=== PATIENT | female | born 1945 | race Caucasian/White ===

== ENCOUNTER 2016-11-21 15:09 | Emergency (ER) | payer MEDICARE, OTHER ==
[2015-08-14 09:16] VITALS: BMI 26.5
[~2016-11-21 15:09] MED LIST: ABILIFY10 MG PO; ARTHROTEC EC 71 EACH PO; CYCLOBENZAPRINE10 MG PO; GABAPENTIN100 MG PO; KEFLEX500 MG PO; MOBIC7.5 MG PO; PERCOCET 10/3251 TA1 PO; RESTORIL15 MG PO; ROPINIROLE HCL2 MG PO; TRICOR145 MG PO; VALIUM10 MG PO; VIMOVO 500-201 EACH PO; XANAX0.25 MG PO
[2016-11-21 20:28] LABS: BASOPHILS 0.5 % (0.0-2.0); EOSINOPHILS 0.7 % (0-7); HEMATOCRIT 42.4 % (36.0-48.0); HEMOGLOBIN 14.1 g/dL (12-16); IMMATURE GRANULOCYTES 0.4 % (0-5); LYMPHOCYTES 19.1 % (15-50); MCH 31.7 pg (26.0-34.0); MCHC 33.3 g/dL (31.0-37.0); MCV 95.3 fL (80.0-100.0); MEAN PLATELET VOLUME 10.1 fL (7.4-10.4); MONOCYTES 9.1 % (2-11); NEUTROPHILS 70.2 % (40-80); PLATELET COUNT 236 10x3/uL (130-400); RBC 4.45 10x6/uL (4.00-5.40); RDW 18.9 % (11.5-14.5); WBC 7.5 10x3/uL (4.8-10.8)
[2016-11-21 20:33] LABS: APTT 29.3 SECONDS (22.8-39.4); INR 0.93 (0.85-1.17); PROTIME 12.3 SECONDS (11.6-15.0)
[2016-11-21 20:43] LABS: ANION GAP 17.2 mmol/L (8-16); BILIRUBIN - TOTAL 0.63 mg/dL (0.2-1.3); CALCIUM 9.3 mg/dL (8.5-10.1); CARBON DIOXIDE 27.4 mmol/L (21.0-32.0); CREATININE - SERUM 0.9 mg/dL (0.6-1.3); PROTEIN - SERUM 7.4 g/dL (6.4-8.2)
[2016-11-21 20:48] LABS: POTASSIUM - SERUM 2.6 mmol/L (3.5-5.1)
== END 2016-11-21 23:22 | disposition home or self-care (01) ==
LOC: D.ER 15:09
PROVIDERS: Physician Assistant Medical
DX: R51 Headache (principal); E86.0 Dehydration; I10 Essential (primary) hypertension

== ENCOUNTER 2017-02-04 18:41 | Inpatient (IN) | payer MEDICARE, OTHER ==
[~2017-02-04] VITALS: Ht 160 cm; Wt 66.8 kg
[2017-02-04 19:47] LABS: BASOPHILS 0.9 % (0-2); EOSINOPHILS 1.4 % (0-7); HEMATOCRIT 38.6 % (36.0-48.0); IMMATURE GRANULOCYTES 0.6 % (0-5); LYMPHOCYTES 24.4 % (15-50); MCH 33.6 pg (26.0-34.0); MCHC 31.1 g/dL (31.0-37.0); MCV 108.1 fL (80.0-100.0); MEAN PLATELET VOLUME 9.7 fL (7.4-10.4); MONOCYTES 13.5 % (2-11); NEUTROPHILS 59.2 % (40-80); PLATELET COUNT 235 10x3/uL (130-400); RBC 3.57 10x6/uL (4.00-5.40); RDW 19.8 % (11.5-14.5); WBC 6.6 10x3/uL (4.8-10.8)
[2017-02-04 20:03] LABS: ALBUMIN 2.6 g/dL (3.4-5.0); ANION GAP 15.9 mmol/L (8-16); BILIRUBIN - TOTAL 0.81 mg/dL (0.2-1.3); CALCIUM 8.1 mg/dL (8.5-10.1); CARBON DIOXIDE 24.7 mmol/L (21.0-32.0); CREATININE - SERUM 1.3 mg/dL (0.6-1.3); POTASSIUM - SERUM 3.6 mmol/L (3.5-5.1); PROTEIN - SERUM 6.7 g/dL (6.4-8.2)
[2017-02-04 20:14] LABS: UDS - AMPHET NEGATIVE QUAL (NEGATIVE); UDS - BARB NEGATIVE QUAL (NEGATIVE); UDS - BENZO NEGATIVE QUAL (NEGATIVE); UDS - COCAINE NEGATIVE QUAL (NEGATIVE); UDS - METH NEGATIVE QUAL (NEGATIVE); UDS - OPIATE NEGATIVE QUAL (NEGATIVE); UDS - PCP NEGATIVE QUAL (NEGATIVE); UDS - THC NEGATIVE QUAL (NEGATIVE)
[2017-02-04 20:15] LABS: APPEARANCE HAZY (CLEAR); COLOR YELLOW (YELLOW)
[2017-02-04 20:16] LABS: BILIRUBIN NEGATIVE (NEGATIVE); GLUCOSE NEGATIVE (NEGATIVE); KETONE NEGATIVE (NEGATIVE); LEUKOCYTE ESTERASE 1+ (NEGATIVE); NITRITE POSITIVE (NEGATIVE); PROTEIN 1+ mg/dL (NEGATIVE); SPECIFIC GRAVITY 1.015 (1.005-1.020); UROBILINOGEN NORMAL (NORMAL)
[2017-02-04 20:17] LABS: BACTERIA MANY /hpf (NONE SEEN); EPITHELIAL CELLS 0-5 /hpf (0-5); RED CELLS - URINE 0-5 /hpf (0-5)
[2017-02-04 20:38] LABS: MAGNESIUM - SERUM 1.4 mg/dL (1.8-2.4)
[2017-02-04 23:23] VITALS: BMI 30.3
[2017-02-04] MEDS ORDERED: NORVASC10 MG PO (23:53)
[2017-02-04] MEDS ORDERED: HYDROCODON-ACE1 EAC7 PO (23:56)
[2017-02-04] MEDS ORDERED: GABAPENTIN100 MG PO (23:57)
[2017-02-04] MEDS ORDERED: TRAZODONE HCL50 MG PO (23:58)
[2017-02-04] MEDS ORDERED: ZOLOFT50 MG PO (23:59)
[2017-02-04] MEDS ORDERED: REQUIP0.25 MG PO (23:59)
[2017-02-05] MEDS ORDERED: VITAMIN D5000 UNIT PO
[2017-02-05] MEDS ORDERED: ARTHROTEC EC 71 EACH PO (00:01)
[2017-02-05] MEDS ORDERED: K-DUR20 MEQ PO (00:03)
[2017-02-05] MEDS ORDERED: ACETAMINOPHEN500 M1 PO (00:04)
[2017-02-05] MEDS ORDERED: FUROSEMIDE20 MG PO (00:04)
[2017-02-05 04:00] VITALS: BP 80/44
--- NOTE | 2017-02-05 05:36 | NUR ---
ASSESSED AT THE TIME OF ADMIT. PT IS ALERT AND ORIENTED, ABLE TO VERBALIZE NEEDS. SHE CAME IN FOR CONFUSION AND WAS FOUND TO HAVE AN ELEVATED AMMONIA. AT SHE IS ABLE TO GET UP TO THE BATHROOM BUT IS VERY WNSTEADY SO WE ARE ASSISTING HER WHEN SHE GOES. SHE TURNS HERSELF FOR SKIN CARE AND COMFORT. A WARM PACK WAS PLACE ON HER BACK FOR BACK PAIN UNTIL HER MD COMES AND OK'S PAIN MEDS. MOST OF THE NIGHT SHE HAS SLEPT. THE BED IS LOW, RAILS UP X'S 2 WITH THE CALL LIGHT AT HAND.
--- NOTE | 2017-02-05 08:03 | NUR ---
SCHEDULED MEDICATIONS ADMINISTERED AT THIS TIME WITHOUT DIFFICULTY. ASSESSMENT PERFORMED AND PT PLACED ON VANDANA BED MAT FOR FALL PRECAUTIONS. PAIN 7/10 AT THIS TIME AND GENERALIZED. DR SNEED AT BEDSIDE ASSESSING PT. SRX2 WITH BED IN LOWEST POSITION AND WHEELS LOCKED. CALL LIGHT IN REACH, WILL CONTINUE WITH PLAN OF CARE.
[2017-02-05] MEDS ORDERED: BUTRANS1 EAC1 TRANSDERM (08:05)
[2017-02-05 09:06] VITALS: BP 123/73
--- NOTE | 2017-02-05 09:33 | NUR ---
HOME MEDICATIONS ORDERED PER DR SNEED. ADMINISTERED BY KVNG AREVALOBILLING REPRESENTATIVE AT THIS TIME WITHOUT DIFFICULTY.
--- NOTE | 2017-02-05 09:48 | NUR ---
IV MEDICATIONS INITIATED AT THIS TIME PER ORDERS. IV TO LEFT AC RE-DRESSED AND SECURED WITH TAPE. IV PATENT WITH NO S/S OF INFILTRATION PRESENT. CALL LIGHT IN REACH, WILL CONTINUE WITH PLAN OF CARE.
--- NOTE | 2017-02-05 10:42 | NUR ---
SCHEDULED MEDICATION ADMINISTERED AT THIS TIME. SPOKE WITH PT'S DAUGHTER AND ASKED HER TO BRING PT'S PAIN PATCH FROM HOME, SO THAT IT COULD BE CHANGED PER ORDER FROM DR SNEED. OUT PHARMACY DOES NOT CARRY THIS STRENGHT. PT'S DAUGHTER VERBALIZED UNDERSTANDING AND I LET PT KNOW WELL. PT VERBALIZED UNDERSTANDING. CALL LIGHT REMAINS IN REACH, WILL CONTINUE WITH PLAN OF CARE.
--- NOTE | 2017-02-05 11:45 | NUR ---
PULLED UP RIGHT IN BED AND POSITIONED AT 90 DEGREE ANGLE FOR ADEQUETE PO INTAKE OF SCHEDULED MEDICATION AND LUNCH. CALL LIGHT IN REACH, VANDANA MAT ALARM IN USE. WILL CONTINUE WITH PLAN OF CARE.
[2017-02-05 11:48] VITALS: BP 83/54
--- NOTE | 2017-02-05 13:35 | NUR ---
SLEEPING AT THIS TIME WITH RESPIRATIONS EVEN AND NON LABORED. CALL LIGHT IN REACH, WILL CONTINUE WITH PLAN OF CARE.
[2017-02-05 14:35] LABS: BASOPHILS 1.2 % (0-2); EOSINOPHILS 1.5 % (0-7); HEMATOCRIT 37.8 % (36.0-48.0); HEMOGLOBIN 11.7 g/dL (12-16); IMMATURE GRANULOCYTES 0.9 % (0-5); LYMPHOCYTES 25.3 % (15-50); MCH 33.8 pg (26.0-34.0); MCV 109.2 fL (80.0-100.0); MEAN PLATELET VOLUME 9.8 fL (7.4-10.4); MONOCYTES 13.4 % (2-11); NEUTROPHILS 57.7 % (40-80); PLATELET COUNT 227 10x3/uL (130-400); RBC 3.46 10x6/uL (4.00-5.40); RDW 19.9 % (11.5-14.5); WBC 6.8 10x3/uL (4.8-10.8)
[2017-02-05 15:28] LABS: ALBUMIN 2.5 g/dL (3.4-5.0); ANION GAP 12.4 mmol/L (8-16); BILIRUBIN - TOTAL 0.69 mg/dL (0.2-1.3); CALCIUM 8.1 mg/dL (8.5-10.1); CREATININE - SERUM 1.1 mg/dL (0.6-1.3); POTASSIUM - SERUM 3.4 mmol/L (3.5-5.1); PROTEIN - SERUM 6.1 g/dL (6.4-8.2)
[2017-02-05 16:14] VITALS: BP 95/44
[2017-02-05 20:00] VITALS: BP 131/77
--- NOTE | 2017-02-05 21:20 | NUR ---
RESTING QUIETLY WITH EYES CLOSED, AROUSES UPON COMMAND. ASSESSMENT PER FLOW SHEET. BED LOW CL IN REACH.
--- NOTE | 2017-02-05 23:10 | NUR ---
ASSISTED TO BR STANDBY ASSIST TIMES 1. VOISED 300 CC CLEAR YELLOW URINE.
[2017-02-06] VITALS: BP 138/70
--- NOTE | 2017-02-06 00:54 | NUR ---
RESTING QUIETLY WITH EYES CLOSED RESP DEEP EVEN UNLABORED. BED LOW CL IN REACH. ALL FALL PRECAUTIONS IN PLACE PER FALL SCORE.
[2017-02-06 04:00] VITALS: BP 128/66
[2017-02-06 04:43] LABS: BASOPHILS 0.7 % (0-2); EOSINOPHILS 1.9 % (0-7); MCH 33.3 pg (26.0-34.0); MCHC 30.6 g/dL (31.0-37.0); MCV 109.1 fL (80.0-100.0); MEAN PLATELET VOLUME 9.2 fL (7.4-10.4); MONOCYTES 14.5 % (2-11); NEUTROPHILS 56.9 % (40-80); PLATELET COUNT 223 10x3/uL (130-400); RDW 19.7 % (11.5-14.5); WBC 6.9 10x3/uL (4.8-10.8)
[2017-02-06 05:06] LABS: ALBUMIN 2.3 g/dL (3.4-5.0); ANION GAP 12.8 mmol/L (8-16); BILIRUBIN - TOTAL 0.84 mg/dL (0.2-1.3); CALCIUM 7.6 mg/dL (8.5-10.1); CARBON DIOXIDE 27.2 mmol/L (21.0-32.0); CREATININE - SERUM 0.9 mg/dL (0.6-1.3)
--- NOTE | 2017-02-06 07:20 | NUR ---
REPORT RECEIVED FROM DIRECTOR NETWORK DEVELOPMENT NURSE. CALL LIGHT IN REACH.
[2017-02-06 08:08] VITALS: BP 128/76
--- NOTE | 2017-02-06 08:20 | NUR ---
PATIENT IN HIGH [place]AMP[place] POSITION ALERT AND RESTING QUIETLY. RESPIRATIONS EVEN AND UNLABORED. SIDE RAILS UP X2. BED IN LOW POSITION. CALL LIGHT IN REACH.
--- NOTE | 2017-02-06 08:22 | NUR ---
ASSESSMENT COMPLETED. O2 WAS 82% ON 2L PER NC. INCREASED TO 6L. NOW O2 IS 91%. WILL ASK RESPIRATORY FOR AN OXYMIZER. SCDs TO BLE. VANDANA MAT ALARM IS ON. CALL LIGHT IN REACH. WILL CONTINUE WITH PLAN OF CARE.
--- NOTE | 2017-02-06 08:28 | NUR ---
SPOKE WITH DR. SNEED. NEW ORDERS RECEIVED.
--- NOTE | 2017-02-06 08:30 | NUR ---
OXYMIZER PLACED @ 7L PER RT. O2 SAT IS NOW 94%. WILL CONTINUE TO MONITOR.
--- NOTE | 2017-02-06 08:38 | NUR ---
AM MEDS ADMINISTERED. CALL LIGHT IN REACH.
--- NOTE | 2017-02-06 10:20 | NUR ---
RESTING WITH EYES CLOSED. RESP EVEN AND UNLABORED. CALL LIGHT IN REACH.
[2017-02-06 12:11] VITALS: BP 152/67
[2017-02-06 12:23] VITALS: Ht 160 cm; Wt 66.8 kg
--- NOTE | 2017-02-06 12:50 | NUR ---
NOON MEDS ADMINISTERED. STILL REQUESTING MORE PAIN MEDS. WILL CALL
--- NOTE | 2017-02-06 12:50 | NUR ---
REPOSITIONED IN BED WITH ASSISTANCE FROM CARISA TORRES. CALL LIGHT IN REACH.
--- NOTE | 2017-02-06 14:58 | NUR ---
GABAPENTIN AND NORCO PO. PAIN PATCH CHANGED. DAUGHTER AND FRIEND IN ROOM. CALL LIGHT IN REACH.
--- NOTE | 2017-02-06 15:05 | NUR ---
GABAPENTIN AND NORCO PO. PAIN PATCH CHANGED. DAUGHTER AND FRIEND IN ROOM. CALL LIGHT IN REACH.
--- NOTE | 2017-02-06 15:31 | NUR ---
RT IN ROOM TO DO BREATHING TREATMENT.
[2017-02-06 15:40] VITALS: BP 136/76
--- NOTE | 2017-02-06 16:41 | NUR ---
STATES PAIN IS BETTER BUT IS STILL SAYING IT IS A 5. SEEMS COMFORTABLE AT THIS TIME. FAMILY IN ROOM. CALL LIGHT IN REACH.
--- NOTE | 2017-02-06 16:50 | NUR ---
LIBRIUM PO PER ORDER. FAMILY IN ROOM. CALL LIGHT IN REACH.
--- NOTE | 2017-02-06 18:33 | NUR ---
NO CHANGES IN INITIAL ASSESSMENT. SCDs TO BLE. VANDANA MAT ALARM IS ON. WILL CONTINUE WITH PLAN OF CARE.
--- NOTE | 2017-02-06 19:08 | NUR ---
TO CT VIA BED.
[2017-02-06 20:00] VITALS: BP 110/82
--- NOTE | 2017-02-06 20:00 | NUR ---
ASSESSMENT PER FLOWSHEET. PT TO RADIOLOGY PER BED FOR CTA OF CHEST. RETURNED AFTER XRAY. IV PATENT LEFT AC OF NS AT 100CC'S/HR O2 ON 6L/M PER HIGH FLOW OXIMYZER. PLACED ON CONTINUOUS O2 SAT. READS 89-90%.HOB UP 40 DEGREES. SR UP X2 CALL LIGHT WITHIN REACH VANDANA BED ALARM MAT ON ALARMS SET. DAUGHTER AT BEDSIDE. SCD'S ON. LARGE PURPLE BRUISE NOTED TO RT HIP AREA. PT'S DAUGHTER REQUESTING JOHNSON CATHETER STATES HER MOTHER IS TOO WEAK TO GET TO BATHROOM. NOTIFIED DR. SNEED OK'D FRO CATHETER.
--- NOTE | 2017-02-06 20:30 | NUR ---
JOHNSON CATHETER 16FR INSERTED WITH 200CC'S YELLOW URINE RETURNED. O2 SAT READS 87% O2 INCREASED TO 7L/M . IS USED WITH POOR EFFORT.
--- NOTE | 2017-02-06 20:55 | NUR ---
MEDS GIVEN PER MAR.
--- NOTE | 2017-02-06 22:30 | NUR ---
O2 SAT=87% INCREASED O2 TO 8L/M PER OXIMYZER. PT REPOSITIONED IN BED HOB UP 40 DEGREES.
[2017-02-07] VITALS (19 sets, daily range): BP systolic 92–141; BP diastolic 37–79
--- NOTE | 2017-02-07 | NUR ---
O2 SAT READING=89% INCREASED O2 TO 9L/M PER OXIMYZER.
--- NOTE | 2017-02-07 01:50 | NUR ---
O2 SAT=84% O2 INCREASED TO 10 PER OXIMYZER.
[2017-02-07 05:08] LABS: BASOPHILS 0.3 % (0-2); EOSINOPHILS 0.8 % (0-7); HEMATOCRIT 37.4 % (36.0-48.0); HEMOGLOBIN 11.3 g/dL (12-16); IMMATURE GRANULOCYTES 0.8 % (0-5); LYMPHOCYTES 15.7 % (15-50); MCH 33.9 pg (26.0-34.0); MCHC 30.2 g/dL (31.0-37.0); MEAN PLATELET VOLUME 10.1 fL (7.4-10.4); MONOCYTES 8.6 % (2-11); NEUTROPHILS 73.8 % (40-80); PLATELET COUNT 256 10x3/uL (130-400); RBC 3.33 10x6/uL (4.00-5.40); RDW 20.1 % (11.5-14.5); WBC 8.6 10x3/uL (4.8-10.8)
[2017-02-07 05:20] LABS: MCV 112.3 fL (80.0-100.0)
[2017-02-07 05:23] LABS: ALBUMIN 2.4 g/dL (3.4-5.0); ANION GAP 12.4 mmol/L (8-16); BILIRUBIN - TOTAL 1.3 mg/dL (0.2-1.3); CALCIUM 7.9 mg/dL (8.5-10.1); CREATININE - SERUM 0.9 mg/dL (0.6-1.3); MAGNESIUM - SERUM 2.1 mg/dL (1.8-2.4); POTASSIUM - SERUM 3.4 mmol/L (3.5-5.1); PROTEIN - SERUM 6.4 g/dL (6.4-8.2)
--- NOTE | 2017-02-07 06:15 | NUR ---
O2 SAT READING 81% UNABLE TO GET O2 SATS ANY HIGHER RT TECH HERE WILL DO ABG'S RAPID RESPONSE CALLED.
--- NOTE | 2017-02-07 06:40 | NUR ---
NGT #16 FR INSERTED TO LEFT NARE GREEN DRAINAGE RETURNED. LACTULOSE 45CC'S GIVEN PER NGT AND FLUSHED WITH WATER. NGT CLAMPED.PATIENT ON BIPAP. O2 SAT=95%
--- NOTE | 2017-02-07 06:51 | NUR ---
TRANSFERED TO ICU TO ROOM 2304. PER O2 AND RT TECH.
--- NOTE | 2017-02-07 07:04 | NUR ---
REC'D VIA BED FROM MED SURG, 100% NR MASK IN USE, O2 SAT 88%, OTHER VSS, CONFUSED WITH GARBLED SPEECH, CHANGED TO 100% BIPAP BY RT, PER ORDER, FOLLOWS SOME COMMANDS, ASSESSMENT COMPLETE PER FLOWSHEET
[2017-02-07 07:41] LABS: APTT 24.2 SECONDS (22.8-39.4)
--- NOTE | 2017-02-07 09:30 | NUR ---
AM MEDS GIVEN PER NGT, TOLERATED WITHOUT DIFFICULTY, ORAL CARE COMPLETED, REPOSITIONED UP AND TO RIGHT SIDE WITH PILLOW PROPPED TO BACK AND HEELS FLOATED
--- NOTE | 2017-02-07 11:00 | NUR ---
ASSESSMENT COMPLETED SEE FLOWSHEET, NO ACUTE CHANGE FROM PREVIOUS
--- NOTE | 2017-02-07 11:15 | NUR ---
INITITATED LACTULOSE ENEMA, INSTILLED 600 CC, WITHOUT DIFFICULTY, RECTAL VAULT WITH HARD MARBLE SIZED STOOL
--- NOTE | 2017-02-07 13:30 | NUR ---
AIR OVERLAY MATTRESS APPLIED TO BED WITHOUT DIFFICULTY
--- NOTE | 2017-02-07 14:00 | NUR ---
LACTULOSE ENEMA INSTILLED PER PROTOCAL AND ORDER
--- NOTE | 2017-02-07 15:00 | NUR ---
RESTING WITH NO SIGN OF DISTRESS, VSS, ORAL CARE COMPLETED, NO VISITORS AT THIS TIME
--- NOTE | 2017-02-07 17:30 | NUR ---
INCONTINENT OF SMALL DIARRHEA STOOL TO DAGOBERTO PAD, SKINCARE AND LINEN CHANGE COMPLETED
--- NOTE | 2017-02-07 19:30 | NUR ---
ASSESSMENT COMPLETE. S1S2. PT CONFUSED; SPEECH GARBLED. ON BIPAP @ 100%. RR SHALLOW DIMINISHED THROUGHOUT ALL LOBES. GUIDEMAN STRENGTH EQUAL +3. RADIAL AND PEDAL PULSES PALPATED. SINUS TACHYCARDIA SHOWING ON MONITOR. PT FREQUENTLY MAKES POSITION CHANGES; ATTEMPTS TO SLIDE TO THE END OF THE BED; PLACES LEG OFF SIDE OF THE BED. BED ALARM IN USE. X3 SIDE RAILS IN USE. SCD AND JOHNSON CATH IN PLACE. NO DISTRESS NOTED. VSS. WILL CONTINUE TO MONITOR.
--- NOTE | 2017-02-07 20:30 | NUR ---
20 GAUGE PIV STARTED TO RIGHT AC; PATENT. NO REDNESS. NO SIGNS OF INFILTRATION.
--- NOTE | 2017-02-07 22:30 | NUR ---
PT HAD BM; PT CLEANED. COMPLETE LINEN CHANGE.
--- NOTE | 2017-02-07 23:10 | NUR ---
REASSESSMENT COMPLETE. NO CHANGES FROM PREVIOUS ASSESSMENT. BIPAP AT 80%. PIV TO RIGHT AC; PATENT.
[2017-02-08] VITALS (21 sets, daily range): BP systolic 100–154; BP diastolic 50–100
--- NOTE | 2017-02-08 00:30 | NUR ---
CRONULAC AND SOAP [place] ENEMA GIVEN. DIGITAL ASSESSMENT OF ANAL CANAL INDICATED FECAL BLOCKAGE. ATTEMPTED TO DIGITALLY REM0VE FECAL MATTER; MINIMAL FECES REMOVED. WILL ATTEMPT AFTER RESTING PERIOD.
--- NOTE | 2017-02-08 02:50 | NUR ---
SOAP [place] ENEMA GIVEN. DIGITAL REMOVAL OF FECAL MATTER.
--- NOTE | 2017-02-08 03:20 | NUR ---
REASSESSMENT COMPLETE. NO CHANGES FROM PREVIOUS ASSESSMENT. VSS. NO DISTRESS NOTED. CALL LIGHT IN REACH. WILL CONTINUE TO MONITOR.
[2017-02-08 04:06] LABS: BASOPHILS 0.1 % (0-2); EOSINOPHILS 0 % (0-7); HEMATOCRIT 36.6 % (36.0-48.0); HEMOGLOBIN 11.1 g/dL (12-16); IMMATURE GRANULOCYTES 0.3 % (0-5); LYMPHOCYTES 7.4 % (15-50); MCH 33.5 pg (26.0-34.0); MCHC 30.3 g/dL (31.0-37.0); MCV 110.6 fL (80.0-100.0); MEAN PLATELET VOLUME 9.8 fL (7.4-10.4); MONOCYTES 5.7 % (2-11); NEUTROPHILS 86.5 % (40-80); PLATELET COUNT 242 10x3/uL (130-400); RBC 3.31 10x6/uL (4.00-5.40); RDW 20.2 % (11.5-14.5); WBC 9.8 10x3/uL (4.8-10.8)
--- NOTE | 2017-02-08 04:30 | NUR ---
PT HAD LARGE BM; SEMI FORMED SOME MARBLE LIKE STOOLS PRESENT. PT RESTLESS. MOVES AROUND IN BED CONTINUOUSLY.
[2017-02-08 04:34] LABS: ALBUMIN 2.2 g/dL (3.4-5.0); ANION GAP 12.7 mmol/L (8-16); BILIRUBIN - TOTAL 2.16 mg/dL (0.2-1.3); CALCIUM 7.3 mg/dL (8.5-10.1); CARBON DIOXIDE 25.7 mmol/L (21.0-32.0); CREATININE - SERUM 0.8 mg/dL (0.6-1.3); MAGNESIUM - SERUM 2.3 mg/dL (1.8-2.4); PROTEIN - SERUM 6.3 g/dL (6.4-8.2)
[2017-02-08 04:51] LABS: POTASSIUM - SERUM 2.4 mmol/L (3.5-5.1)
--- NOTE | 2017-02-08 05:20 | NUR ---
POTASSIUM 1 OF 6 STARTED PER ELECTROLYTE PROTOCOL.
--- NOTE | 2017-02-08 10:17 | NUR ---
Nutrition follow-up: Pt with oxygen mask in place; confused Labs reviewed ETOH abuse with elevated NH3 Unable to eat at this time. Received order to begin TF RDN ordered Suplena to start @ 25 ml/hr with gradual increase to goal rate of 50 ml/hr. RDN will monitor patients progress and TF tolerance.
--- NOTE | 2017-02-08 19:20 | NUR ---
ASSESSMENT COMPLETE. S1S2. SINUS TACHYCARDIA SHOWING ON MONITOR. RR SHALLOW CTA BLATERALLY IN UPPER LOBES; DIMINISHED BILATERALLY IN LOWER LOBES. AWAKE AND ALERT; ABLE TO ANSWER QUESTIONS APPROPRIATELY. SPEECH GARBLED. OPENS EYES TO SPEECH; EYES BILATERALLY EDEMATOUS AND REDDENED. SKIN TEAR/SORE ON RIGHT SIDED VULVA. BUTTOCKS REDDENED. FREQUENT MOISTURE DUE TO FREQUENT BM'S.
--- NOTE | 2017-02-08 19:40 | NUR ---
PT HAD LARGE BM; PARTIAL SEMI FORMED; PARTIAL LOOSE. PT CLEANED; LINEN CHANGED.
--- NOTE | 2017-02-08 20:20 | NUR ---
PT HAD LARGE BM; PT CLEANED. COMPLETE BED BATH. COMPLETE LINEN CHANGE. PT WAS ATTEMPTING TO GET OUT OF BED AFTER INCONTINENT. BED ALARM ON; WAS NOT ALARMING PT WAS ATTEMPTING TO GET OUT OF BED. CLOSE MONITORING.
--- NOTE | 2017-02-08 21:30 | NUR ---
PT HAD MEDIUM BM; COMPLETE LINEN CHANGE. PT CLEANED.
--- NOTE | 2017-02-08 21:45 | NUR ---
PT PLACED IN RESTRAINTS. PT PULLED OUT NGT; ATTEMPTING TO GET OUT OF BED; ATTEMPTED TO PULL IV OUT; AND WAS PULLING ON JOHNSON CATH. EXPLAINED TO PT REASON FOR RESTRAINTS. WILL CONTINUE TO MONITOR CLOSELY.
--- NOTE | 2017-02-08 23:15 | NUR ---
REASSESSMENT COMPLETE. NO CHANGES FROM PREVIOUS ASSESSMENT. VSS. NO DISTRESS NOTED. PT IN RESTRAINTS; PT SAFETY.
[2017-02-09] VITALS (24 sets, daily range): BP systolic 101–167; BP diastolic 59–118
--- NOTE | 2017-02-09 00:10 | NUR ---
LARGE BM. PT CLEANED. COMPLETE BATH GIVEN. COMPLETE LINEN CHANGE.
--- NOTE | 2017-02-09 00:35 | NUR ---
RT AC PIV INFLITRATED. REDNESS AND WARMTH NOTED. DC'D PIV; CATH INTACT. DRESSING APPLIED. RESTARTED PIV 20 GAUGE TO LEFT BREAST; PATENT. X1 ATTEMPT.
--- NOTE | 2017-02-09 03:00 | NUR ---
REASSESSMENT COMPLETE. NO CHANGES FROM PREVIOUS ASSESSMENT. VSS. NO DISTRESS NOTED. PIV TO LEFT CHEST/BREAST.
--- NOTE | 2017-02-09 04:18 | NUR ---
PT HAD MODERATE BM. COMPLETE LINEN CHANGE. PT CLEANED.
[2017-02-09 04:25] LABS: BASOPHILS 0.1 % (0-2); EOSINOPHILS 0 % (0-7); HEMATOCRIT 35.8 % (36.0-48.0); HEMOGLOBIN 11.1 g/dL (12-16); IMMATURE GRANULOCYTES 0.3 % (0-5); LYMPHOCYTES 5.6 % (15-50); MCV 109.8 fL (80.0-100.0); MEAN PLATELET VOLUME 10.5 fL (7.4-10.4); MONOCYTES 7.1 % (2-11); NEUTROPHILS 86.9 % (40-80); PLATELET COUNT 271 10x3/uL (130-400); RBC 3.26 10x6/uL (4.00-5.40); RDW 20.9 % (11.5-14.5); WBC 10.3 10x3/uL (4.8-10.8)
[2017-02-09 04:40] LABS: ALBUMIN 2.4 g/dL (3.4-5.0); ALKALINE PHOSPHATASE 202 U/L (46-116); ALT (SGPT) 144 U/L (10-68); BILIRUBIN - TOTAL 1.61 mg/dL (0.2-1.3); CALCIUM 7.4 mg/dL (8.5-10.1); CARBON DIOXIDE 26.3 mmol/L (21.0-32.0); CHLORIDE - SERUM 105 mmol/L (98-107); CREATININE - SERUM 0.7 mg/dL (0.6-1.3); GLUCOSE 164 mg/dL (74-106); MAGNESIUM - SERUM 2.3 mg/dL (1.8-2.4); PROTEIN - SERUM 6.1 g/dL (6.4-8.2); SODIUM 142 mmol/L (136-145); eGFR NON AFRICAN AMERICAN 87 mL/min (90-120)
[2017-02-09 04:56] LABS: CALC OSMOLALITY 284 mosm/kg (275-300); POTASSIUM - SERUM 2.9 mmol/L (3.5-5.1); UREA NITROGEN 6 mg/dL (7-18)
--- NOTE | 2017-02-09 06:28 | NUR ---
PT HAD SMALL BM. COMPLETE LINEN CHANGE. CLEAN GOWN. PT CLEANED.
--- NOTE | 2017-02-09 07:00 | NUR ---
PT DISORIENTED AND RESTLESS. ON BIPAP AT THIS TIME. PULLED OUT NGT PER CANAL EQUIPMENT MECHANIC AND PULLED OUT LEFT HAND PIV. PT REMAINS IN RESTRAINTS. PT CONSTANTLY MOVING SELF UP AND DOWN IN BED AND TWISTING AROUND. ATTEMPTED TO REORIENT PT. SHE IS ABLE TO ANSWER SOME QUESIONS BUT IS INCONSISTENT. JOHNSON NOW SECURED WITH STAT LOCK. PIV IN LEFT CHEST TAPED AND SECURED. WILL CONTINUE TO MONITOR PT CLOSELY.
--- NOTE | 2017-02-09 09:00 | NUR ---
FAMILY CALLED AND GIVEN UPDATE. PT CLEANED AND LINENS CHANGED. PT WAS ABLE TO TAKE PO MEDS WITH ASSISTANCE. WILL CONTINUE TO MONITOR AND REORIENT NEEDED.
[2017-02-09 10:19] LABS: HEPATITIS C ANTIBODY <0.1 (0.0-0.9)
--- NOTE | 2017-02-09 11:00 | NUR ---
PT HAD ANOTHER BM. CLEANED AND COMPLETE LINEN CHANGE. REPOSITIONED IN BED. WILL CONTINUE TO MONITOR
--- NOTE | 2017-02-09 14:00 | NUR ---
SWALLOW EVAL COMPLETED PER NAMAN. PT WILL NOW BE ON PUREED DIET WITH THICKENED LIQUIDS. WILL CONTINUE TO MONITOR
--- NOTE | 2017-02-09 15:00 | NUR ---
PT CLEANED AND REPOSITONED IN BED. ORDERS IN FOR REDRAW ON POTASSIUM AND AMMONIA. WILL CONTINUE TO MONITOR
--- NOTE | 2017-02-09 17:00 | NUR ---
SPOKE WITH DR STARKS ABOUT PT CRITICAL AMMONIA LEVEL IN 80S. SHE STATES THAT WE WILL CONTINUE 60ML LACTULOSE PO TID ORDERED AT THIS TIME. PT CLEANED AND REPOSITIONED IN BED. WILL CONINUE TO MONITOR
--- NOTE | 2017-02-09 19:20 | NUR ---
PT INCONTINENT OF STOOL. LARGE LIQUID BM. PT CLEANED. COMPLETE LINEN CHANGE.
--- NOTE | 2017-02-09 19:45 | NUR ---
ASSESSMENT COMPLETE. S1S2. SINUS TACHYCARDIA SHOWING ON MONITOR. PT CONFUSED, RESTLESS, AND CONSTANTLY MOVING AROUND IN BED. PT THRASHES LEGS AROUND CONTINUOUSLY. WEEPING EDEMA NOTED TO ARMS; REDDENED. RADIAL AND PEDAL PULSES PALPATED. ON BIPAP @ 50%. RR DIMINISHED THROUGHOUT ALL LOBES. GENERALIZED BRUISING NOTED. BRUSING NOTED TO RIGHT HIP; REDDENED. BUTTOCKS REDDENED.
--- NOTE | 2017-02-09 20:50 | NUR ---
PT INCONTINENT OF STOOL. MEDIUM LIQUID BM. PT CLEANED. COMPLETE LINEN CHANGE.
--- NOTE | 2017-02-09 22:10 | NUR ---
PT INCONTINENT OF STOOL. LARGE LIQUID BM. PT CLEANED. COMPLETE LINEN CHANGE.
--- NOTE | 2017-02-09 22:20 | NUR ---
RECTAL TUBE INSERTED WITHOUT DIFFICULTY. IRRIGATED TO CHECK PATENTENCY.
--- NOTE | 2017-02-09 23:10 | NUR ---
REASSESSMENT COMPLETE. NO CHANGES FROM PREVIOUS ASSESSMENT. VSS. NO DISTRESS NOTED. WILL CONTINUE TO MONITOR. MAKES FREQUENT CHANGES IN POSITION INDEPENDENTLY. PT THRASHING AROUND IN BED.
[2017-02-10] VITALS (24 sets, daily range): BP systolic 111–168; BP diastolic 65–111
--- NOTE | 2017-02-10 03:15 | NUR ---
REASSESSMENT COMPLETE. PT ATTEMPTING TO CLIMB OUT OF BED; KICKING. RIGHT ANKLE AND BILATERAL WRIST RESTRAINTS. PT THRASHING IN BED.
[2017-02-10 04:03] LABS: BASOPHILS 0.1 % (0-2); EOSINOPHILS 0 % (0-7); HEMOGLOBIN 11.4 g/dL (12-16); IMMATURE GRANULOCYTES 0.7 % (0-5); LYMPHOCYTES 8.7 % (15-50); MCH 33.4 pg (26.0-34.0); MCHC 30.8 g/dL (31.0-37.0); MCV 108.5 fL (80.0-100.0); MEAN PLATELET VOLUME 10.5 fL (7.4-10.4); MONOCYTES 9.1 % (2-11); NEUTROPHILS 81.4 % (40-80); PLATELET COUNT 263 10x3/uL (130-400); RBC 3.41 10x6/uL (4.00-5.40); RDW 20.7 % (11.5-14.5); WBC 12.7 10x3/uL (4.8-10.8)
[2017-02-10 04:34] LABS: ALBUMIN 2.6 g/dL (3.4-5.0); ANION GAP 12.5 mmol/L (8-16); BILIRUBIN - TOTAL 1.3 mg/dL (0.2-1.3); CALCIUM 7.7 mg/dL (8.5-10.1); CREATININE - SERUM 0.8 mg/dL (0.6-1.3)
[2017-02-10 04:38] LABS: POTASSIUM - SERUM 3.5 mmol/L (3.5-5.1)
--- NOTE | 2017-02-10 10:07 | NUR ---
Nutrition follow-up: NGT pulled out by pt Diet advanced to regular puree with nectar thick liquids No po intake noted Weeping edema to bilateral arms Bipap in place labs noted Rectal tube due to multiple liquid stools from Lactulose Wt: 227# Pt is not meeting estimated nutritional needs at this time. Recommend NGT replaced or PEG tube placed for nutrition support. RDN following.
--- NOTE | 2017-02-10 11:11 | NUR ---
0715-RECIEVED NON RESPONSIVE-BIPAP IN PLACE-SOFT JACEK AND R ANKLE-NOTED SR ON MONITOR-NOTED L BREAST IV ACCESS ONLY AND RECTAL TUBE IN PLACE 0815-L NARE NGT PLACED WITH OUT DIFFICULTY-REPLACED BIAPA MASK-NOTED CONT SHALLOW-RESP--ORAL CARE DONE IN ATTEMPT TO ILLICIT RESPONXE 0830-ABG DRAWN ADN RESULTS CALLED-BIAPA CHANGES DONE BY RT -FAMILY NOTIFIED OF DECREASED LOC- 1000-DR PETERS IN UNIT AND SPOKE TO DAUGHTER-NGT REMAINS SECURE -AND LACTULOSE GIVEN-DR ALLEN PG'D REGARDING CENTRAL LINE PLACEMENT
--- NOTE | 2017-02-10 12:50 | NUR ---
RECIEVED REPORT FROM ANNA MARIE AT THIS TIME. ASSESSMENT PERFORMED. NO ACUTE DISTRESS NOTED. PT DOES MOVE BILATERAL LEGS FREQUENTLY. WAITING FOR XRAY RESULTS TO VERIFY PLACEMENT OF NEW CVL. WILL CONTINUE PLAN OF CARE.
--- NOTE | 2017-02-10 14:10 | NUR ---
TURN/REPOSITIONING PROVIDED AT THIS TIME, PROVIDED Q2H. NOTED RECTAL TUBE WELL JOHNSON ARE NOT LEAKING. ALSO WEEPING EDEMA TO RIGHT UPPER ARM. BUTTOCKS EXCORIATED, BUTTPASTE APPLIED TO SITE. WILL CONTINUE PLAN OF CARE.
--- NOTE | 2017-02-10 14:10 | NUR ---
1200-DR ALLEN AT [facility]-L CVL PLACED FOLLOWING 2 ATTEMPTS-CHEST XRAY DONE-PT SEVERELY RESTLESS-BIPAP IN PLACE-LILIA
--- NOTE | 2017-02-10 15:23 | NUR ---
CALLED XRAY, RECIEVED VERIFICATION OF CVL PLACEMENT FOR USAGE. SITE FLUSHES AND DRAWS WELL. NO ACUTE DISTRESS NOTED. WILL CONTINUE PLAN OF CARE.
--- NOTE | 2017-02-10 16:09 | NUR ---
CRITICAL AMMONIA NOTED, CALLED DR STARKS TO NOTIFY, ORDERS RECIEVED. WILL PLACE. NO ACUTE DISTRESS NOTED. WILL CONTINUE PLAN OF CARE.
--- NOTE | 2017-02-10 17:33 | NUR ---
NOTED ORDERS TO START TUBE FEEDINGS AT THIS TIME, SUPLENA STARTED AT THIS TIME. STARTED AT 25ML/HOUR PER ORDER. WILL INCREASE TO MEET GOAL RATE PER ORDER GUIDELINES. PLACEMENT VERIFICATION VIA AUSCULTATION. NO ACUTE DISTRESS NOTED. WILL CONTINUE PLAN OF CARE.
--- NOTE | 2017-02-10 19:15 | NUR ---
RECEIVED CARE OF PT, ASSESSMENT PER FLOWSHEET. PT RESTLESS AND AGITATED, KICKING LEGS IN AIR, DOES NOT FOLLOW COMMANDS, ALL ATTEMPTS TO REORIENT UNSUCCESSFUL, GARBLED SPEECH NOTED. BIPAP MASK IN PLACE, NGT WITH SUPLENA INFUSING AT 25 CC/HR, PLACEMENT VERIFIED WITH SMALL AIR BOLUS, PPP, WEEPING EDEMA NOTED TO BILATERAL UPPER EXTREMITIES-ELEVATED ON PILLOWS. BILATERAL SOFT WRIST RESTRAINTS, ANKLE RESTRAINT X 1 NOTED, WILL MONITOR.
--- NOTE | 2017-02-10 21:05 | NUR ---
NO VISITORS PRESENT AT THIS TIME, PT POSITIONED FOR COMFORT, CONT TO MONITOR.
--- NOTE | 2017-02-10 23:15 | NUR ---
REASSESSMENT PER FLOWSHEET, NO ACUTE CHANGES NOTED. PT POSITIONED FOR COMFORT, CONTINUES TO BE VERY RESTLESS, ALL ATTEMPTS TO REORIENT NOT SUCCESSFUL. CONT POC.
[2017-02-11] VITALS (24 sets, daily range): BP systolic 106–168; BP diastolic 65–109
--- NOTE | 2017-02-11 00:51 | NUR ---
PT RESTING WITH EYES CLOSED, BIPAP MASK IN PLACE, VSS, CONT POC.
--- NOTE | 2017-02-11 04:17 | NUR ---
DR PETERS PAGED FOR ELEVATED HR, ORDERS RECEIVED, CONT TO MONITOR.
[2017-02-11 04:32] LABS: BASOPHILS 0.1 % (0-2); EOSINOPHILS 0 % (0-7); HEMATOCRIT 36.7 % (36.0-48.0); HEMOGLOBIN 11.3 g/dL (12-16); IMMATURE GRANULOCYTES 0.9 % (0-5); MCHC 30.8 g/dL (31.0-37.0); MEAN PLATELET VOLUME 10.7 fL (7.4-10.4); MONOCYTES 9.5 % (2-11); NEUTROPHILS 80.5 % (40-80); PLATELET COUNT 245 10x3/uL (130-400); RBC 3.32 10x6/uL (4.00-5.40); RDW 20.7 % (11.5-14.5)
[2017-02-11 04:33] LABS: MCV 110.5 fL (80.0-100.0)
[2017-02-11 04:45] LABS: INR 0.96 (0.85-1.17); PROTIME 12.6 SECONDS (11.6-15.0)
[2017-02-11 04:56] LABS: ALBUMIN 2.5 g/dL (3.4-5.0); ANION GAP 10.9 mmol/L (8-16); BILIRUBIN - TOTAL 1.22 mg/dL (0.2-1.3); CALCIUM 8.4 mg/dL (8.5-10.1); CARBON DIOXIDE 30.3 mmol/L (21.0-32.0); MAGNESIUM - SERUM 2.1 mg/dL (1.8-2.4); PROTEIN - SERUM 6.9 g/dL (6.4-8.2)
[2017-02-11 04:58] LABS: PHOSPHOROUS 0.7 mg/dL (2.5-4.9)
[2017-02-11 04:59] LABS: POTASSIUM - SERUM 3.2 mmol/L (3.5-5.1)
--- NOTE | 2017-02-11 05:16 | NUR ---
40 MEQ KCL AND 2 PKTS NEUTRA-PHOS ADMINISTERED VIA NGT PER ELECTROLYTE PROTOCOL TO TREAT K+ OF 3.2 AND PHOS OF 0.7 ON AM LAB.
--- NOTE | 2017-02-11 07:45 | OP ---
PATIENT NAME: KEMI DELGADO MEDICAL RECORD: [id number] :43 LOCATION:D.[facility] D.2304 ADMISSION DATE:02/04/17 SURGEON: ANGELICA ALLEN MD DATE OF OPERATION: 02/10/2017 SURGEON: Angelica Allen MD PREOPERATIVE DIAGNOSES: 1. Peripheral IV access insufficiency 2. Respiratory failure. 3. Alcoholism. 4. Elevated ammonia level. POSTOPERATIVE DIAGNOSIS: 1. Peripheral IV access insufficiency 2. Respiratory failure. 3. Alcoholism. 4. Elevated ammonia level. PROCEDURE PERFORMED: Insertion of left subclavian central venous line. ANESTHESIA: Local. COMPLICATIONS: None. SPECIMENS: None. ESTIMATED BLOOD LOSS: 40 cc. Case was clean. OPERATIVE COURSE: After consent was obtained, the patient was placed in the supine position in the ICU bed. A shoulder roll was placed. She was placed in Trendelenburg position. A timeout was taken to confirm the correct patient and procedure. The left neck and chest were prepped and draped in the typical sterile fashion. A 10 cc of local anesthetic were injected in the left chest wall. The left subclavian vein was cannulated, a guidewire ____ placed, an 0.035 guidewire was used and 0.035 guidewire was able to be advanced. The needle was removed. The skin was incised in an 11-blade scalpel. The dilator was passed over the wire in a standard Seldinger fashion. The catheter was passed through the wire in a standard Seldinger fashion. The wire was removed. All 3 ports were aspirated and flushed. A Biopatch was placed and secured to skin with a 2-0 silk suture and sterile Tegaderm dressing. At the end of the procedure, all needle and instrument counts were correct. No complications occurred. Immediate postoperative chest x-ray was performed to confirm placement of the line. TRANSINT:[id number] Voice Confirmation ID: [id number] DOCUMENT ID: [id number] OPERATIVE REPORT [id number] KEMI DELGADO JAMES J MD at 0745 CC: [id number] DICTATION DATE: 02/10/17 1229 LOW PRESSURE KETTLE OPERATOR: 02/10/172037 [place] [address]
--- NOTE | 2017-02-11 07:46 | CN ---
PATIENT NAME:KEMI DELGADO MEDICAL RECORD: [id number] : 43 LOCATION:[id number] ADMIT DATE: 02/04/17 ACCOUNT: [id number] CONSULTING PHYSICIAN: ANGELICA ALLEN MD REFERRING PHYSICIAN: DARLEEN SNEED MD DATE OF CONSULTATION: 02/10/2017 Surgical Consultation SURGEON: Angelica Allen MD. CHIEF COMPLAINT: IV access insufficiency. HISTORY OF PRESENT ILLNESS: A 71-year-old female, who was brought to the ER by her family. She had altered mental status. She was noted to have an elevated ammonia level as well as an abnormal liver function test. She has a history of alcoholism. The patient is in the ICU right now. She is obtunded and lethargic. All history was obtained through chart review and discussion with the RN. The patient has no IV access. She is on BiPAP. PAST MEDICAL HISTORY: Acid reflux, liver dysfunction, constipation and alcoholism. PAST SURGICAL HISTORY: Hysterectomy. ALLERGIES: No known drug allergies. MEDICATIONS: Amlodipine, [place], gabapentin, trazodone, Zoloft, Requip, vitamin D3, Arthrotec, potassium chloride, Lasix, buprenorphine and acetaminophen. FAMILY HISTORY: Cancer in her parents. SOCIAL HISTORY: She is a current everyday smoker. She drinks alcohol daily and has for the last 15 years. REVIEW OF SYSTEMS: A 12-point review of systems was unobtainable secondary to the patient's altered mental status. PHYSICAL EXAMINATION: VITAL SIGNS: Temperature 97.4, pulse rate 96, respiratory rate 13, blood pressure 126/84 and saturating 90% on BiPAP. GENERAL: This is a lethargic, somnolent, morbidly obese female. EYES: Extraocular muscles are intact. EAR, NOSE AND THROAT: Poor dentition. Mucous membranes dry. PSYCHIATRIC: She is disoriented, obtunded. CARDIOVASCULAR: Normal sinus rhythm, tachycardic. LUNGS: Decreased breath sounds bilaterally. ABDOMEN: Soft, nontender and nondistended. NECK: Supple. SKIN: Warm and dry. She has got diffuse erythema. EXTREMITIES: She has got peripheral edema. NEUROLOGIC: She is neurovascularly intact. She is moving all 4 extremities. LABORATORY DATA: Reviewed. Please see electronic medical record for full list of laboratory values. CONSULT REPORT [id number] KEMI DELGADO IMAGING: Chest x-ray reviewed, which shows interstitial lung disease, right lateral lung pneumonia. IMPRESSION: A 71-year-old female with respiratory failure, cirrhosis, altered mental status and hyper ammonia levels, as well as peripheral IV access insufficiency. PLAN: Continue current therapy per pulmonary critical care and medicine. Continue IV fluids, continue BiPAP for respiratory failure. Urgent placement of a left subclavian central venous line for IV access, serial blood draws, drug monitoring and IV therapy. TRANSINT:[id number] Voice Confirmation ID: [id number] DOCUMENT ID: [id number] ANGELICA ALLEN MD at 0746 CC: [id number] DICTATION DATE: 02/10/17 1228 COMPUTER VIDEO GAME DESIGNER: 02/10/172012 ADM IN [facility] [address] [place] [address]
--- NOTE | 2017-02-11 08:16 | NUR ---
NO ACUTE DISTRESS NOTED AT THIS TIME. PT TURNED Q2H. NOTED RECTAL TUBE AND JOHNSON ARE NOT LEAKING. WILL CONTINUE PLAN OF CARE.
--- NOTE | 2017-02-11 10:50 | NUR ---
PT ASSISTED AT THIS TIME WITH REPOSITIONING AND FULL LINEN CHANGE. AFTER REPOSITIONING NOTED HEART RATE HAD INCREASED TO THE 140S. WILL OBSERVE AND NOTIFY PHYSICIAN.
--- NOTE | 2017-02-11 12:19 | NUR ---
NO CHANGE, NOTED HEART RATE IS STILL IN THE 140S WITH BLOOD PRESSURE AROUND 150/100. DR PETERS IS AWARE. WILL CONTINUE PLAN FO CARE.
--- NOTE | 2017-02-11 14:21 | NUR ---
HEART RATE STILL IN THE 140S WITH HYPERTENSION CALLED DR PETERS. ORDERS RECIEVED. WILL ADMIN SHORTLY. WILL CONTINUE PLAN FO CARE.
--- NOTE | 2017-02-11 14:32 | NUR ---
IV DC TO RIGHT WRIST AT THIS TIME, CATHETER TIP INTACT. PT DENIES ANY NEEDS OR CONCERNS, STATES SHE WILL BE ABLE TO OBTAIN DISCHARGE MEDS CONSIDER XARELTO IS A CONTINUED MED AND SOTALOL IS A MED PT HAD BEEN TAKING AT HOME WELL AND WHICH THE DOSAGE HAD BEEN INCREASED AND SHE HAS A HARD SCRIPT FOR. PT FRIEND HERE TO TAKE PT HOME VIA PERSONAL VEHICLE. WILL CONTINUE PLAN OF CARE.
--- NOTE | 2017-02-11 16:34 | NUR ---
NOTED 10ML RESIDUAL AT THIS TIME, TUBE FEEDINGS INCREASED FROM 35ML/HOUR TO 45 ML/HOUR PER ORDERS. NO ACUTE DISTRESS NOTED. WILL CONTINUE PLAN OF CARE.
--- NOTE | 2017-02-11 17:20 | NUR ---
NO CHANGE NOTED AT THIS TIME. PT STILL RESTLESS AND CONFUSED; NOT FOLLOWING COMMANDS. REPOSITIONED Q2H. WILL CONTINUE PLAN OF CARE.
--- NOTE | 2017-02-11 19:15 | NUR ---
RESUMED CARE OF PT, ASSESSMENT PER FLOWSHEET. PT RESTLESS, AGITATED. SUPLENA INFUSING VIA NGT AT 45 CC/HR, RESIDUAL 12CC, PLACEMENT VERIFIED WITH SMALL AIR BOLUS. POSITIONED FOR COMFORT, BIPAP IN PLACE, HR ST ON CM, WILL MONITOR.
--- NOTE | 2017-02-11 21:38 | NUR ---
RECHECK OF K+ 3.6, NO FURTHER TREATMENT REQUIRED PER ELECTROLYTE PROTOCOL.
[2017-02-12] VITALS (24 sets, daily range): BP systolic 106–152; BP diastolic 72–115
--- NOTE | 2017-02-12 00:06 | NUR ---
METOPROLOL 2.5 MG ADMINISTERED VIA SIVP FOR ELEVATED BP PER MD ORDER, WILL MONITOR FOR DESIRED EFFECT.
--- NOTE | 2017-02-12 01:00 | NUR ---
PT REPOSITIONED FOR COMFORT, ORAL CARE PROVIDED, CONT POC.
--- NOTE | 2017-02-12 02:30 | NUR ---
DECREASED PO2 NOTED ON AM ABG'S, BIPAP INCREASED TO 100% PER RT.
[2017-02-12 04:07] LABS: BASOPHILS 0.4 % (0-2); EOSINOPHILS 0.1 % (0-7); HEMATOCRIT 38.3 % (36.0-48.0); IMMATURE GRANULOCYTES 3.1 % (0-5); LYMPHOCYTES 17.2 % (15-50); MCH 34.6 pg (26.0-34.0); MCHC 31.3 g/dL (31.0-37.0); MCV 110.4 fL (80.0-100.0); MEAN PLATELET VOLUME 11.4 fL (7.4-10.4); MONOCYTES 6.7 % (2-11); NEUTROPHILS 72.5 % (40-80); PLATELET COUNT 255 10x3/uL (130-400); RBC 3.47 10x6/uL (4.00-5.40); RDW 21.6 % (11.5-14.5); WBC 13.1 10x3/uL (4.8-10.8)
[2017-02-12 04:25] LABS: ALBUMIN 2.4 g/dL (3.4-5.0); ANION GAP 12.1 mmol/L (8-16); BILIRUBIN - TOTAL 1.2 mg/dL (0.2-1.3); CALCIUM 8.5 mg/dL (8.5-10.1); CARBON DIOXIDE 33.3 mmol/L (21.0-32.0); MAGNESIUM - SERUM 1.7 mg/dL (1.8-2.4); POTASSIUM - SERUM 3.4 mmol/L (3.5-5.1); PROTEIN - SERUM 6.8 g/dL (6.4-8.2)
[2017-02-12 04:26] LABS: PHOSPHOROUS 1.4 mg/dL (2.5-4.9)
--- NOTE | 2017-02-12 04:38 | NUR ---
COMPLETE BATH AND LINEN CHANGE DONE, PERICARE PROVIDED, VSS, POSITIONED SUPPORTED WITH PILLOWS, CONT POC.
--- NOTE | 2017-02-12 08:10 | NUR ---
LYING IN BED AT THIS TIME. NOTED PT MOVING LEGS, DOES NOT FOLLOW COMMANDS. PT DOES MAKE INAUDIBLE SOUNDS WHEN REPOSITIONED, REPOSITIONED Q2H. NO ACUTE DISTRESS NOTED. WILL CONTINUE PLAN OF CARE.
--- NOTE | 2017-02-12 10:39 | NUR ---
NGT PLACEMENT VERIFICATION VIA AUSCULTATION, ALSO RESIDUAL NOTED AT 10ML. NO PT IS RECIEVING NGT FEEDINGS AT GOAL RATE. NO ACUTE DISTRESS NOTED. WILL CONTINUE PLAN OF CARE.
--- NOTE | 2017-02-12 11:50 | NUR ---
DR SALAZAR HERE AT THIS TIME SPEAKING WITH PT DAUGHTER, ALLA, GIVING UPDATE. WILL CONTINUE PLAN OF CARE.
--- NOTE | 2017-02-12 13:00 | NUR ---
PT NOT NOTED PULLING AT LINES, RESTRAINTS REMOVED AT THIS TIME. NO ACUTE DISTRESS. WILL CONTINUE PLAN OF CARE.
--- NOTE | 2017-02-12 13:06 | NUR ---
DR PETERS ROUNDING AT THIS TIME, NOTED ORDER FOR D5W AT 100ML/HOUR OPPOSED TO THE 2000 ML FREE FLUID THROUGH NGT OVER 24 HOURS. HE HAD STATED TO DECREASE FLUSH TO [address] ORDERS AT THIS TIME. WILL CONTINUE PLAN FO CARE.
--- NOTE | 2017-02-12 15:06 | NUR ---
NO ACUTE DISTRESS NOTED AT THIS TIME. NO CHANGE. FAMILY AT BEDSIDE, BED BATH PROVIDED. NO ACUTE DISTRESS NOTED. WILL CONTINUE PLAN OF CARE.
--- NOTE | 2017-02-12 17:08 | NUR ---
LINEN CHANGE PROVIDED AT THIS TIME, PT TURNED Q2H. NO ACUTE DISTRESS NOTED. WILL CONTINUE PLAN OF CARE.
--- NOTE | 2017-02-12 19:00 | NUR ---
REPORT RECEIVED AND ASSESSMENT COMPLETED. SEE FLOWSHEET FOR FULL DETAILS. PT SEEN PULLING AT BIPAP AND CENTRAL LINE. RESTRAINTS REAPPLIED.
--- NOTE | 2017-02-12 21:00 | NUR ---
2100 MEDS GIVEN. NO OTHER CHANGES AT THIS TIME. VSS. WILL MONITOR
--- NOTE | 2017-02-12 23:00 | NUR ---
REASSESSMENT COMPLETED. SEE FLOWSHEET FOR FULL DETAILS. PT STILL HAS FEVER. NOW AT 100.1 F ROOM TEMP DECREASED AND BLANKETS HAVE ALREADY BEEN REMOVED. WILL CONTINUE TO MONITOR THROUGHOUT SHIFT
[2017-02-13] VITALS (24 sets, daily range): BP systolic 92–148; BP diastolic 63–99
--- NOTE | 2017-02-13 01:00 | NUR ---
COMPLETED BEDBATH AND LINEN CHANGE PROVIDED.
--- NOTE | 2017-02-13 03:25 | NUR ---
REASSESSMENT COMPLETED. SEE FLOWSHEET FOR FULL DETAILS. VSS. RADIOLOGY AT BEDSIDE. WILL CONTINUE TO MONITOR THROUGHOUT SHIFT
[2017-02-13 04:51] LABS: BASOPHILS 0.5 % (0-2); EOSINOPHILS 1.1 % (0-7); HEMATOCRIT 40.5 % (36.0-48.0); HEMOGLOBIN 12.4 g/dL (12-16); IMMATURE GRANULOCYTES 3.5 % (0-5); LYMPHOCYTES 25.1 % (15-50); MCH 34.1 pg (26.0-34.0); MCHC 30.6 g/dL (31.0-37.0); MCV 111.3 fL (80.0-100.0); MEAN PLATELET VOLUME 11.6 fL (7.4-10.4); MONOCYTES 5.8 % (2-11); PLATELET COUNT 238 10x3/uL (130-400); RBC 3.64 10x6/uL (4.00-5.40); RDW 21.9 % (11.5-14.5)
[2017-02-13 04:59] LABS: WBC 16.5 10x3/uL (4.8-10.8)
--- NOTE | 2017-02-13 05:15 | NUR ---
PT REPOSITIONED IN BED. LAB DRAWN AND SENT OFF. AWAITING VALUES. WILL ADJUST ELECTROLYTES PER PROTOCOL. VSS. WILL MONITOR.
[2017-02-13 05:23] LABS: ALBUMIN 2.4 g/dL (3.4-5.0); ANION GAP 10.5 mmol/L (8-16); BILIRUBIN - TOTAL 1.18 mg/dL (0.2-1.3); CALCIUM 8.8 mg/dL (8.5-10.1); CARBON DIOXIDE 34.4 mmol/L (21.0-32.0); CREATININE - SERUM 0.9 mg/dL (0.6-1.3); MAGNESIUM - SERUM 1.6 mg/dL (1.8-2.4); PHOSPHOROUS 2.4 mg/dL (2.5-4.9); PROTEIN - SERUM 6.6 g/dL (6.4-8.2)
[2017-02-13 05:27] LABS: POTASSIUM - SERUM 2.9 mmol/L (3.5-5.1)
--- NOTE | 2017-02-13 07:00 | NUR ---
ASSESSMENT COMPLETE PER FLOWSHEET. VOICES NO CO AT TIME.
--- NOTE | 2017-02-13 10:00 | NUR ---
BATH AND LINEN CHANGED. CALOSEPTIMINE COATED OVER EXCORATED BUTTOCKS. RECTAL TUBE NOTED.
--- NOTE | 2017-02-13 10:30 | NUR ---
DAUGHTER AT BEDSIDE. NO QUESTIONS NOTED.
--- NOTE | 2017-02-13 10:36 | NUR ---
Nutrition follow-up: Suplena infusing @ 45 ml/hr with NGT Labs reviewed Wt: 173# Pt is tolerating TF @ 45 ml/hr RDN following.
--- NOTE | 2017-02-13 12:00 | NUR ---
RECTAL TUBE CHANGED OUT.
--- NOTE | 2017-02-13 15:13 | NUR ---
DR HERBERT OFFICE CALLED CONSULT.
--- NOTE | 2017-02-13 15:20 | NUR ---
DR PETERS CALLED INSTRUCT PT NOT MOVING ARMS NOT EVEN TO PAINFUL STIMULI NEW ORDERS OBTAINED.
--- NOTE | 2017-02-13 18:30 | NUR ---
TO CT VIA BED.
--- NOTE | 2017-02-13 19:00 | NUR ---
PT RECEIVED TO CARE NO SIGNS OF DISTRESS. VSS. WILL MONITOR THROUGH SHIFT
--- NOTE | 2017-02-13 20:00 | NUR ---
SHIFT ASSESSMENT COMPLETED. PT PLACED BACK ON BIPAP PER MD ORDERS. SEE FLOWSHEET FOR FULL DETAILS. VSS. WILL MONITOR
--- NOTE | 2017-02-13 21:00 | NUR ---
COMPLETELINEN CHANGE AT THIS TIME. PT RECTAL TUBE LEAKING SMALL AMOUNTS OF FECAL MATTER
--- NOTE | 2017-02-13 23:00 | NUR ---
REASSESSMENT COMPLETED SEE FLOWSHEET FOR FULL DETAILS. PT REPOSITIONED FOR COMFORT BED IN LOW POSITION RAILS UP X 2. VSS WILL CONTINUE TO MONITOR.
[2017-02-14] VITALS (23 sets, daily range): BP systolic 106–144; BP diastolic 64–104
[2017-02-14 05:37] LABS: BASOPHILS 0.3 % (0-2); EOSINOPHILS 1.1 % (0-7); HEMATOCRIT 38.2 % (36.0-48.0); HEMOGLOBIN 11.7 g/dL (12-16); IMMATURE GRANULOCYTES 4.1 % (0-5); LYMPHOCYTES 11.4 % (15-50); MCH 34.1 pg (26.0-34.0); MCHC 30.6 g/dL (31.0-37.0); MCV 111.4 fL (80.0-100.0); MEAN PLATELET VOLUME 12.6 fL (7.4-10.4); MONOCYTES 5.7 % (2-11); NEUTROPHILS 77.4 % (40-80); PLATELET COUNT 227 10x3/uL (130-400); RBC 3.43 10x6/uL (4.00-5.40); RDW 21.1 % (11.5-14.5); WBC 14.2 10x3/uL (4.8-10.8)
[2017-02-14 05:49] LABS: ALBUMIN 2.4 g/dL (3.4-5.0); BILIRUBIN - TOTAL 1.28 mg/dL (0.2-1.3); CALCIUM 9.1 mg/dL (8.5-10.1); CARBON DIOXIDE 31.3 mmol/L (21.0-32.0); MAGNESIUM - SERUM 1.8 mg/dL (1.8-2.4); PHOSPHOROUS 2.7 mg/dL (2.5-4.9); PROTEIN - SERUM 6.3 g/dL (6.4-8.2)
[2017-02-14 05:51] LABS: ANION GAP 10.5 mmol/L (8-16); POTASSIUM - SERUM 3.8 mmol/L (3.5-5.1)
--- NOTE | 2017-02-14 15:00 | NUR ---
PATIENT IS UNABLE TO ANSWER QUESTIONS. SHE IS RESTRAINED AND WEARING BIPAP. CM WILL NEED TO TALK WITH HER DAUGHTER, ALLA LEVIN, WHEN SHE VISITS. CM TO FOLLOW.
--- NOTE | 2017-02-14 19:00 | NUR ---
Received patient restless in bed with eyes open, Assessment completed per flowsheet. Patient confused/disoriented x4, restless. Eyes PERRLA @ 4mm with brisk response, sclera is yellowed. NGT R nare secured, Suplena @ 50ml/hr ongoing. S1/S2 noted with patient Sinus Tach on telemetry with HR 106, rhythmic and regular. Breathing is shallow on 15L Oximizer, crackles noted bilateral upper and mid with diminished lower. Abdomen is round and soft, non-tender with bowel sounds active x4. [place] secured in place with abbie urine noted, Rectal tube secured with brown-yellow stools noted. Full ROM all extremities with weakness noted, all pulses palpable with cap refill <3 sec. L subclavian triple lumen noted, patent with dressing CDI. Air overlay on bed, R soft ankle restraint in use. Unable to assess pain, oral care performed with thick yellow mucous suctioned. No further needs at this time, all VSS and will continue to monitor.
--- NOTE | 2017-02-14 23:00 | NUR ---
Reassessment completed per flowsheet, patient resting in bed with eyes closed. Patient restless in bed, grunting and groaning. S1/S2 noted Sinus Tach on telemetry with HR 113, rhythmic and regular. Breathing is slightly shallow on 15L oximizer, O2 sat 95%. Crackles noted bilateral upper with diminished lower. Unable to assess pain, oral care and repositioning provided. No further needs at this time, all VSS and will continue to monitor.
[2017-02-15] VITALS (24 sets, daily range): BP systolic 98–140; BP diastolic 41–94
--- NOTE | 2017-02-15 03:00 | NUR ---
Reassessment completed per flowsheet, patient resting in bed with eyes closed. S1/S2 noted Sinus Tach on telemetry with HR 108, rhythmic and regular. Breathing is shallow on 15L via oximizer, O2 sat 98%. Patient is restles in bed, follows directions but does not answer questions. CVL dressing changed per protocol, no difficulties. Unable to assess pain at this time, all VSS and will continue to monitor.
[2017-02-15 05:05] LABS: BASOPHILS 0.1 % (0-2); EOSINOPHILS 0.1 % (0-7); HEMATOCRIT 35.1 % (36.0-48.0); HEMOGLOBIN 10.7 g/dL (12-16); IMMATURE GRANULOCYTES 2.2 % (0-5); LYMPHOCYTES 14.2 % (15-50); MCH 33.9 pg (26.0-34.0); MCHC 30.5 g/dL (31.0-37.0); MCV 111.1 fL (80.0-100.0); MEAN PLATELET VOLUME 12.5 fL (7.4-10.4); MONOCYTES 3.8 % (2-11); NEUTROPHILS 79.6 % (40-80); PLATELET COUNT 196 10x3/uL (130-400); RBC 3.16 10x6/uL (4.00-5.40); RDW 20.4 % (11.5-14.5); WBC 14.8 10x3/uL (4.8-10.8)
[2017-02-15 05:44] LABS: ALBUMIN 2.4 g/dL (3.4-5.0); ANION GAP 12.9 mmol/L (8-16); BILIRUBIN - TOTAL 1.24 mg/dL (0.2-1.3); CALCIUM 8.6 mg/dL (8.5-10.1); MAGNESIUM - SERUM 1.6 mg/dL (1.8-2.4); POTASSIUM - SERUM 3.9 mmol/L (3.5-5.1); PROTEIN - SERUM 5.7 g/dL (6.4-8.2)
[2017-02-15 05:46] LABS: PHOSPHOROUS 3.4 mg/dL (2.5-4.9)
--- NOTE | 2017-02-15 07:00 | NUR ---
REC'D RPOERT AND RESUMED CARE, BIPAP @ 75% IN USE, SAT 94%, ST ON MONITOR OTHER VSS, RIGHT NARE NGT, WITH SUPLENA AT 50CC/HR, RESIDUAL CHECK GREATER THAN 120 CC, TURNED OFF, LEFT SCTL WITH D5W INFUSING AT 150 CC/HR, PER ORDERS CHANGE TO NS AT 10 CC/HR, AIR OVERLAY IN USE, JOHNSON TO GRAVITY WITH MEENA CONCENTRATED DRAINAGE TO BAG, RECTAL TUBE IN PLACE DRAINING TO FECAL BAG, RIGHT ANKLE RESTRAINT IN USE FOR PATIENT SAFETY, AIR OVER LAY MATTRESS IN USE, AROUSES TO VOICE, DOES NOT FOLLOW COMMANDS, ASSESSMENT COMPLETE PER FLOWSHEET, REPOSITIONED UP AND TO BACK WITH HEELS FLOATED, CONTINUING POC
--- NOTE | 2017-02-15 09:00 | NUR ---
AM MEDS GIVEN WITHOUT DIFFICULTY
--- NOTE | 2017-02-15 09:56 | NUR ---
Nutrition follow-up: Suplena infusing @ 50 ml/hr; pt currently tolerating per nursing Rectal tube in place Labs reviewed; NH3 increasing Glucose high Wt: 198# RDN following.
--- NOTE | 2017-02-15 11:00 | NUR ---
NO ACUTE CHANGE FROM PREVIOUS ASSESSMENT, VSS
--- NOTE | 2017-02-15 12:04 | NUR ---
BIPAP OFF PER ORDER, CHANGED TO O2 VIA NC AT 4L BY RT
--- NOTE | 2017-02-15 12:08 | NUR ---
PER RT, BIPAP AT 75% FIO2, PT PLACED ON 12L OXYMIZER
--- NOTE | 2017-02-15 15:00 | NUR ---
SIDE WAYS IN BED, REPOSITIONED UP AND TO RIGHT, RECTAL TUBE OUT, SKIN CARE AND LINEN CHANGE COMPLETED, RECTAL TUBE REINSERTED PER PROTOCAL, TOLERATED WITHOUT DIFFICULTY, DRAINING LIQUID STOOL, NO OTHER ACUTE CHNGE FROM PREVIOUS ASSESSMENT
--- NOTE | 2017-02-15 16:00 | NUR ---
I AND O'S COMPLETED WITHOUT DIFFICULTY
--- NOTE | 2017-02-15 17:30 | NUR ---
RECTAL TUBE LEAKING, IRRIGATED WITH 45 CC H2O, SKIN CARE AND LINEN CHANGE COMPLETED,
--- NOTE | 2017-02-15 19:30 | NUR ---
ASSESSMENT COMPLETE. S1S2. PT CONFUSED; RESTLESS. MAKES FREQUENT CHANGES IN POSITION INDEPENDENTLY. 12L VIA OXYMIZER. NSR SHOWING ON MONITOR. RIGHT ANKLE RESTRAINT IN PLACE. MITT RESTRAINTS IN PLACE. JOHNSON AND RECTAL TUBE IN PLACE. VSS. NO DISTRESS NOTED. WILL CONTINUE TO MONITOR.
--- NOTE | 2017-02-15 21:15 | NUR ---
FAMILY AT BEDSIDE. UPDATE GIVEN.
--- NOTE | 2017-02-15 23:15 | NUR ---
REASSESSMENT COMPLETE. NO CHANGES FROM PREVIOUS ASSESSMENT. PT MAKES FREQUENT CHANGES IN POSITION INDEPENDENTLY.
[2017-02-16] VITALS (24 sets, daily range): BP systolic 102–174; BP diastolic 67–102
--- NOTE | 2017-02-16 01:30 | NUR ---
PT AWAKE. MAKING FREQUENT CHANGES IN POSITION INDEPENDENTLY. RIGHT ANKLE RESTRAINT. BILATERAL MITT RESTRAINTS IN PLACE.
--- NOTE | 2017-02-16 03:00 | NUR ---
REASSESSMENT COMPLETE. PT PLACED ON BIPAP AT 75%. NO OTHER CHANGES AT THIS TIME. WILL CONTINUE T0 MONITOR. VSS. NO DISTRESS NOTED.
[2017-02-16 04:11] LABS: BASOPHILS 0.2 % (0-2); EOSINOPHILS 0.1 % (0-7); HEMATOCRIT 35.1 % (36.0-48.0); HEMOGLOBIN 10.6 g/dL (12-16); IMMATURE GRANULOCYTES 1.8 % (0-5); LYMPHOCYTES 10.9 % (15-50); MCH 33.5 pg (26.0-34.0); MCHC 30.2 g/dL (31.0-37.0); MCV 111.1 fL (80.0-100.0); MEAN PLATELET VOLUME 12.5 fL (7.4-10.4); MONOCYTES 4.3 % (2-11); NEUTROPHILS 82.7 % (40-80); PLATELET COUNT 199 10x3/uL (130-400); RBC 3.16 10x6/uL (4.00-5.40); RDW 20.8 % (11.5-14.5); WBC 14.1 10x3/uL (4.8-10.8)
[2017-02-16 04:27] LABS: ALBUMIN 2.4 g/dL (3.4-5.0); ANION GAP 10.1 mmol/L (8-16); BILIRUBIN - TOTAL 1.16 mg/dL (0.2-1.3); CALCIUM 8.6 mg/dL (8.5-10.1); CARBON DIOXIDE 31.9 mmol/L (21.0-32.0); CREATININE - SERUM 0.9 mg/dL (0.6-1.3); MAGNESIUM - SERUM 1.8 mg/dL (1.8-2.4); PHOSPHOROUS 4.2 mg/dL (2.5-4.9); PROTEIN - SERUM 5.7 g/dL (6.4-8.2)
--- NOTE | 2017-02-16 07:00 | NUR ---
PT CONFUSED/DISORIENTED. COGNITION IMPROVING. PT IS ABLE TO VERBALIZE NEEDS BUT INCONSISTENT. SHIFT ASSESSMENT DOCUMENTED PER FLOWSHEET. VITAL SIGNS STABLE. WILL CONTINUE TO MONTIOR
--- NOTE | 2017-02-16 09:00 | NUR ---
PT FREQUENTLY MOVING SELF IN BED AND ATTEMPTING TO GET OUT OF RESTRAINTS DUE TO CONFUSION. ATTEMPTED TO REORIENT PT. REPOSITIONED IN BED AND LINENS CHANGED. WILL CONTINUE TO MONITOR CLOSELY.
--- NOTE | 2017-02-16 09:55 | NUR ---
Nutrition follow-up: Pt more alert today; able to follow some commands per nursing Suplena continues to infuse @ 50 ml/hr Labs reviewed Rectal tube in place RDN following.
--- NOTE | 2017-02-16 11:00 | NUR ---
PT REPOSITIONED IN BED. TUBE FEEDING BAG CHANGED AND INFUSING. VITAL SIGNS STABLE. ATTEMPTING TO REORIENT FREQUENTLY. WILL CONTINUE TO MONTIOR
--- NOTE | 2017-02-16 14:46 | NUR ---
Is the patient Alert and Oriented? No 0 * How many steps to enter\exit or inside your home? 3-4 0 * PCP DR. SNEED 0 * Pharmacy [facility], [place] 0 * Preadmission Environment Home Alone 0 * ADLs Independent 0 * Equipment None 0 * Other Equipment PATIENT MAY NEED A SHOWER CHAIR AT DISCHARGE PER HER DAUGHTER 0 * List name and contact numbers for known caregivers / representatives who currently or will assist patient after discharge: DAUGHTER: ALLA LEVIN [phone] * Community resources currently utilized None 0 * Additional services required to return to the preadmission environment? Yes 0 * Can the patient safely return to the preadmission environment? No 0 * Has this patient been hospitalized within the prior 30 days at any hospital? No PATIENT IS UNRESPONSIVE AND UNABLE TO ANSWER QUESTIONS. I SPOKE WITH HER DAUGHTER, ALLA. SHE STATES THAT HER MOM WAS LIVING ALONE AND INDEPENDENT IN ADL'S. SHE STATES SHE ASSIST HER MOTHER NEEDED. PATIENT'S PCP IS DR. SNEED. SHE GETS HER MEDS FROM [facility] [address]. PATIENT DOES NOT HAVE ANY DME BUT HER DAUGHTER STATES SHE COULD USE A SHOWER CHAIR IF SHE GOES HOME. SHE HAD HOME HEALTH IN THE PAST WITH [facility]. THERE ARE 3-4 STEPS TO ENTER HER HOME. IT IS MULTILEVEL AND THERE ARE 15 STEPS INSIDE TO GET TO THE KITCHEN. ALLA STATES SHE IS NOT SURE OF THE DISCHARGE PLAN AT THIS TIME. SHE STATES SHE WILL NEED TO WAIT TO SEE WHAT HAPPENS WITH HER MOTHER. DISCHARGE PLAN IS UNDETERMINED AT THIS TIME.
--- NOTE | 2017-02-16 15:00 | NUR ---
PT STABLE AT THIS TIME. APPEARS TO BE MORE ORIENTED THIS AFTERNOON AND ANSWERS MORE QUESTIONS. WILL CONTINUE TO MONITOR
--- NOTE | 2017-02-16 17:00 | NUR ---
ATTEMPTING TO REORIENT PT FREQUENTLY. REPOSITIONED IN BED. VITAL SIGNS STABLE. WILL CONTINUE TO MONITOR
--- NOTE | 2017-02-16 19:00 | NUR ---
REPORT RECIEVED, INITIAL ASSESSMENT COMPLETE, PLEASE SEE FLOW SHEETS FOR DETAILS. COMPLAINS OF PAIN IN NOSE DUE TO NGT, READJUSTED BUT SHE STATED IT DID NOT HELP. INFORMED HER THERE WAS NOTHING MORE I COULD DO FOR THAT. ORAL CARE AND TURNING PROVIDED. BED LOW AND LOCKED, MITTENS ON AND CHECKED WELL ONE RESTRAINT ON RIGHT LEG. PPP, WILL CONTINUE POC.
--- NOTE | 2017-02-16 21:00 | NUR ---
ORAL CARE AND TURNING PROVIDED. MOVED UP IN BED. BED LOW AND LOCKED, VSS, WILL CONTINUE POC.
--- NOTE | 2017-02-16 23:00 | NUR ---
REASSESSMENT COMPLETE, PLEASE SEE FLOW SHEETS FOR DETAILS. TURNING PROVIDED. BED LOW AND LOCKED, ALARM ON, VSS, WILL CONTINUE POC.
[2017-02-17] VITALS (24 sets, daily range): BP systolic 99–178; BP diastolic 71–129
--- NOTE | 2017-02-17 03:00 | NUR ---
REASSESSMENT COMPLETE, PLEASE SEE FLOW SHEETS FOR DETAILS. TURNING PROVIDED. VSS, BED LOW AND LOCKED, WILL CONTINUE POC.
[2017-02-17 03:39] LABS: BASOPHILS 0.1 % (0-2); EOSINOPHILS 0 % (0-7); HEMATOCRIT 35.7 % (36.0-48.0); HEMOGLOBIN 10.8 g/dL (12-16); IMMATURE GRANULOCYTES 1.6 % (0-5); LYMPHOCYTES 10.7 % (15-50); MCH 34.2 pg (26.0-34.0); MCHC 30.3 g/dL (31.0-37.0); MEAN PLATELET VOLUME 13.4 fL (7.4-10.4); MONOCYTES 4.6 % (2-11); PLATELET COUNT 195 10x3/uL (130-400); RBC 3.16 10x6/uL (4.00-5.40); RDW 21.4 % (11.5-14.5); WBC 15.2 10x3/uL (4.8-10.8)
[2017-02-17 04:02] LABS: ALBUMIN 2.6 g/dL (3.4-5.0); ANION GAP 9.9 mmol/L (8-16); BILIRUBIN - DIRECT 0.72 mg/dL (0.00-0.30); BILIRUBIN - INDIRECT 0.37 mg/dL (0.00-1.00); BILIRUBIN - TOTAL 1.09 mg/dL (0.2-1.3); CALCIUM 8.8 mg/dL (8.5-10.1); CARBON DIOXIDE 30.8 mmol/L (21.0-32.0); POTASSIUM - SERUM 3.7 mmol/L (3.5-5.1); PROTEIN - SERUM 6.4 g/dL (6.4-8.2)
--- NOTE | 2017-02-17 05:00 | NUR ---
FULL BED BATH AND LINEN CHANGE PROVIDED. TURNING PROVIDED, ORAL CARE PROVIDED. TOLERATED WELL. VSS, BED LOW AND LOCKED. WILL CONTINUE POC.
--- NOTE | 2017-02-17 19:00 | NUR ---
REPORT RECIEVED, INITIAL ASSESSMENT COMPLETE, PLEASE SEE FLOW SHEETS FOR DETAILS. ORAL CARE AND TURNING PROVIDED. BED LOW AND LOCKED. RESTRAINTS CHECKED, PPP, RESTRAINTS SECURED WITH QUICK RELEASE KNOTS. BED LOW AND LOCKED, VSS, WILL CONTINUE POC.
--- NOTE | 2017-02-17 21:00 | NUR ---
ORAL CARE AND TURNING PROVIDED. BED LOW AND LOCKED, VSS, WILL CONTINUE POC.
--- NOTE | 2017-02-17 23:00 | NUR ---
REASSESSMENT COMPLETE, PLEASE SEE FLOW SHEETS FOR DETAILS. ORAL CARE AND TURNING PROVIDED. BED LOW AND LOCKED, VSS, WILL CONTINUE POC.
[2017-02-18] VITALS (33 sets, daily range): BP systolic 121–164; BP diastolic 62–118
--- NOTE | 2017-02-18 01:00 | NUR ---
BED BATH AND FULL LINEN CHANGE PROVIDED. ORAL CARE AND TURNING PROVIDED. BED LOW AND LOCKED, VSS, WILL CONTINUE POC.
--- NOTE | 2017-02-18 01:00 | NUR ---
ORAL CARE AND TURNING PROVIDED. BED LOW AND LOCKED. VSS, WILL CONTINUE POC.
--- NOTE | 2017-02-18 03:00 | NUR ---
REASSESSMENT COMPLETE, PLEASE SEE FLOW SHEETS FOR DETAILS. ORAL CARE AND TURNING PROVIDED. VSS, BED LOW AND LOCKED. WILL CONTINUE POC.
[2017-02-18 04:50] LABS: BASOPHILS 0.2 % (0-2); EOSINOPHILS 0.1 % (0-7); HEMATOCRIT 36.7 % (36.0-48.0); IMMATURE GRANULOCYTES 1.5 % (0-5); LYMPHOCYTES 14.9 % (15-50); MCV 113.3 fL (80.0-100.0); MEAN PLATELET VOLUME 12.5 fL (7.4-10.4); MONOCYTES 3.9 % (2-11); NEUTROPHILS 79.4 % (40-80); PLATELET COUNT 208 10x3/uL (130-400); RBC 3.24 10x6/uL (4.00-5.40); RDW 21.6 % (11.5-14.5); WBC 15.5 10x3/uL (4.8-10.8)
--- NOTE | 2017-02-18 05:00 | NUR ---
RESTING, BED LOW AND LOCKED, DENIES PAIN/NEEDS ATT. VSS, WILL CONTINUE POC.
[2017-02-18 05:04] LABS: ANION GAP 12.6 mmol/L (8-16); CALCIUM 9.1 mg/dL (8.5-10.1); CARBON DIOXIDE 29.1 mmol/L (21.0-32.0); CREATININE - SERUM 0.9 mg/dL (0.6-1.3); MAGNESIUM - SERUM 1.8 mg/dL (1.8-2.4); POTASSIUM - SERUM 3.7 mmol/L (3.5-5.1)
--- NOTE | 2017-02-18 10:29 | NUR ---
RT REDUCED O2 TO 6 LPM/OXY
--- NOTE | 2017-02-18 15:00 | NUR ---
NO NOTED RYDER IN ASSESSMENT, CLEAND AND DRIED OF DAGOBERTO AREA BM X2 THIS SHIFT. DOES NOT COMMUNICATE WELL WITH STAFF.
--- NOTE | 2017-02-18 16:24 | NUR ---
ARRIVED TO ICU ROOM 2302 VIA STRETCHER AND ONE ER STAFF. PATIENT TRANSFERED TO BED BY WALKING PER SELF WITH MINIMAL ASSISTANCE. ADMIT. VS STABLE, SEE FLOW SHEET. AWAKE, ALERT AND ORIENTED, ABLE TO MAKE NEEDS KNOWN TO STAFF. 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 EDUCATED TO USE OF BSC AND NEED TO CALL STAFF BEFORE GETTING OUT OF BED WITHOUT ASSISTANCE.
--- NOTE | 2017-02-18 19:00 | NUR ---
REPORT RECIEVED, INITIAL ASSESSMENT COMPLETE, PLEASE SEE FLOW SHEETS FOR DETAILS. ORAL CARE AND TURNING PROVIDED. DENIES PAIN/NEEDS ATT. CONFUSED TO TIME AND PLACE. BED LOW AND LOCKED, RESTRAINTS CHECKED, PPP, QUICK RELEASE KNOTS FOR ANKLE RESTRAINTS, MITTENS TAKEN OFF, HANDS INSPECTED AND MITTENS PUT BACK ON. VSS ATT, BED LOW AND LOCKED, WILL CONTINUE POC.
--- NOTE | 2017-02-18 21:00 | NUR ---
ORAL CARE AND TURNING PROVIDED. BED LOW AND LOCKED, CALL LIGHT IN REACH. VSS, BED LOW AND LOCKED, WILL CONTINUE POC.
--- NOTE | 2017-02-18 23:00 | NUR ---
REASSESSMENT COMPLETE, PLEASE SEE FLOW SHEETS FOR DETAIL. ORAL CARE AND TURNING PROVIDED. BED LOW AND LOCKED, VSS, WILL CONTINUE POC.
[2017-02-19] VITALS (17 sets, daily range): BP systolic 117–166; BP diastolic 69–108
--- NOTE | 2017-02-19 00:52 | NUR ---
PT RESTING, NO S&S OF ACUTE DISTRESS NOTED. WOKE EASILY, ORAL CARE AND TURNING PROVIDED. BED LOW AND LOCKED, VSS, WILL CONTINUE POC.
--- NOTE | 2017-02-19 03:00 | NUR ---
REASSESSMENT COMPLETE, PLEASE SEE FLOW SHEETS FOR DETAILS. ORAL CARE AND TURNING PROVIDED. BED LOW AND LOCKED, CALL LIGHT IN REACH. VSS, WILL CONTINUE POC.
[2017-02-19 03:45] LABS: BASOPHILS 0.1 % (0-2); EOSINOPHILS 0 % (0-7); HEMATOCRIT 37.8 % (36.0-48.0); HEMOGLOBIN 11.7 g/dL (12-16); LYMPHOCYTES 12.2 % (15-50); MCH 35.1 pg (26.0-34.0); MCV 113.5 fL (80.0-100.0); MEAN PLATELET VOLUME 12.9 fL (7.4-10.4); MONOCYTES 4.3 % (2-11); NEUTROPHILS 82.4 % (40-80); PLATELET COUNT 211 10x3/uL (130-400); RBC 3.33 10x6/uL (4.00-5.40); RDW 21.8 % (11.5-14.5); WBC 13.2 10x3/uL (4.8-10.8)
[2017-02-19 04:06] LABS: ALBUMIN 2.8 g/dL (3.4-5.0); ANION GAP 10.7 mmol/L (8-16); BILIRUBIN - TOTAL 0.99 mg/dL (0.2-1.3); CALCIUM 9.4 mg/dL (8.5-10.1); CARBON DIOXIDE 30.4 mmol/L (21.0-32.0); CREATININE - SERUM 0.9 mg/dL (0.6-1.3); MAGNESIUM - SERUM 2.2 mg/dL (1.8-2.4); PHOSPHOROUS 4.8 mg/dL (2.5-4.9); POTASSIUM - SERUM 4.1 mmol/L (3.5-5.1); PROTEIN - SERUM 6.7 g/dL (6.4-8.2)
--- NOTE | 2017-02-19 05:00 | NUR ---
ORAL CARE AND TURNING PROVIDED. BED LOW AND LOCKED, VSS, WILL CONTINUE POC.
--- NOTE | 2017-02-19 11:59 | NUR ---
NO CHANGE NOTED AT PRESENT
--- NOTE | 2017-02-19 15:00 | NUR ---
NO RYDER IN ASSESSMENT THIS SHIFT TO PRESENT.
--- NOTE | 2017-02-19 19:15 | NUR ---
ASSESSMENT COMPLETE. S1S2. PT CONFUSED. LEFT ANKLE RESTRAINT AND MITTS IN PLACE. PT ON AIR OVERLAY MATTRESS WITH BED ALARM IN PLACE. NGT, JOHNSON, AND RECTAL TUBE IN PLACE. PERRLA. SINUS TACHYCARDIA SHOWING ON MONITOR. 4L VIA NC. RR 16. 96% O2 SAT.
--- NOTE | 2017-02-19 21:00 | NUR ---
NO FAMILY DURING VISITATION.
--- NOTE | 2017-02-19 22:30 | NUR ---
RECTAL BAG FULL. 1300 FECAL OUTPUT. CHANGED RECTAL TUBE BAG.
--- NOTE | 2017-02-19 23:15 | NUR ---
REASSESSMENT COMPLETE. NO CHANGES FROM PREVIOUS ASSESSMENT. VSS. NO DISTRESS NOTED. WILL CONTINUE TO MONITOR.
[2017-02-20] VITALS (23 sets, daily range): BP systolic 114–175; BP diastolic 61–102
--- NOTE | 2017-02-20 00:10 | NUR ---
PT HAD RECTAL TUBE LEAKAGE. COMPLETE BED BATH GIVEN. COMPLETE LINEN CHANGE.
--- NOTE | 2017-02-20 00:55 | NUR ---
RECTAL TUBE CAME OUT. REINSERTED. CLEANED PT. COMPLETE LINEN CHANGE.
--- NOTE | 2017-02-20 03:05 | NUR ---
REASSESSMENT COMPLETE. NO CHANGES FROM PREVIOUS ASSESSMENT. VSS. NO DISTRESS NOTED. WILL CONTINUE TO MONITOR.
[2017-02-20 04:34] LABS: BASOPHILS 0.1 % (0-2); EOSINOPHILS 0.1 % (0-7); HEMOGLOBIN 11.6 g/dL (12-16); IMMATURE GRANULOCYTES 0.8 % (0-5); LYMPHOCYTES 10.6 % (15-50); MCH 34.6 pg (26.0-34.0); MCHC 30.5 g/dL (31.0-37.0); MCV 113.4 fL (80.0-100.0); MEAN PLATELET VOLUME 12.6 fL (7.4-10.4); MONOCYTES 3.3 % (2-11); NEUTROPHILS 85.1 % (40-80); PLATELET COUNT 189 10x3/uL (130-400); RBC 3.35 10x6/uL (4.00-5.40); RDW 21.3 % (11.5-14.5)
[2017-02-20 05:00] LABS: ALBUMIN 2.8 g/dL (3.4-5.0); ANION GAP 11.7 mmol/L (8-16); BILIRUBIN - TOTAL 0.89 mg/dL (0.2-1.3); CALCIUM 9.4 mg/dL (8.5-10.1); CARBON DIOXIDE 31.2 mmol/L (21.0-32.0); CREATININE - SERUM 0.9 mg/dL (0.6-1.3); POTASSIUM - SERUM 3.9 mmol/L (3.5-5.1); PROTEIN - SERUM 6.8 g/dL (6.4-8.2)
--- NOTE | 2017-02-20 07:45 | NUR ---
ATE ABOUT 10 BITES OF BREAKFAST THEN DID NOT WANT ANYMORE.
--- NOTE | 2017-02-20 10:21 | NUR ---
Nutrition Follow Up: Chart reviewed. Pt continues to tolerate TF of Suplena @ 50 ml/hr. I>O. Wt loss since admit. + Rectal tube. Labs reviewed - Glucose elevated. Meds noted including Solu-Medrol, Lactulose. Rec continue current TF regimen. RD will continue to monitor pt progress.
--- NOTE | 2017-02-20 11:00 | NUR ---
NO CHANGES NOTED
--- NOTE | 2017-02-20 15:00 | NUR ---
NO CHANGES NOTED TO PRIMARY ASSESSMENT
--- NOTE | 2017-02-20 19:30 | NUR ---
ASSESSMENT COMPLETE. S1S2. PT CONFUSED. ANKLE RESTRAINTS AND B/L MITT RESTRAINTS IN PLACE. NGT WITH SUPLENA @ 50. RECTAL TUBE AND JOHNSON IN PLACE. LEFT SUBCLAVIAN CVL; PATENT. PERRLA. RADIAL AND PEDAL PULSES PALPATED. PT ATTEMPTS TO GET OUT OF BED. REFUSING TO REMAIN SAFE. NSR SHOWING ON MONITOR.4L VIA OXYMIZER.
--- NOTE | 2017-02-20 21:00 | NUR ---
NO FAMILY AT VISITATION.
--- NOTE | 2017-02-20 23:00 | NUR ---
REASSESSMENT COMPLETE. NO CHANGES FROM PREVIOUS ASSESSMENT. VSS. NO DISTRESS NOTED. WILL CONTINUE TO MONITOR.
[2017-02-21] VITALS (24 sets, daily range): BP systolic 120–163; BP diastolic 74–104
--- NOTE | 2017-02-21 01:30 | NUR ---
PT AWAKE. CONFUSED. NO DISTRESS NOTED. VSS. RESTRAINTS IN PLACE. WILL CONTINUE TO MONITOR.
--- NOTE | 2017-02-21 03:15 | NUR ---
REASSESSMENT COMPLETE. NO CHANGES FROM PREVIOUS ASSESSMENT. VSS. WILL CONTINUE TO MONITOR.
[2017-02-21 03:31] LABS: BASOPHILS 0.1 % (0-2); EOSINOPHILS 0 % (0-7); HEMATOCRIT 37.8 % (36.0-48.0); HEMOGLOBIN 11.8 g/dL (12-16); IMMATURE GRANULOCYTES 0.5 % (0-5); LYMPHOCYTES 6.8 % (15-50); MCH 35.4 pg (26.0-34.0); MCHC 31.2 g/dL (31.0-37.0); MCV 113.5 fL (80.0-100.0); MONOCYTES 4.1 % (2-11); NEUTROPHILS 88.5 % (40-80); RBC 3.33 10x6/uL (4.00-5.40); RDW 21.1 % (11.5-14.5); WBC 12.9 10x3/uL (4.8-10.8)
[2017-02-21 03:32] LABS: PLATELET COUNT 280 10x3/uL (130-400)
[2017-02-21 03:53] LABS: ALBUMIN 2.8 g/dL (3.4-5.0); ANION GAP 12.1 mmol/L (8-16); BILIRUBIN - TOTAL 0.8 mg/dL (0.2-1.3); CALCIUM 9.4 mg/dL (8.5-10.1); CARBON DIOXIDE 28.7 mmol/L (21.0-32.0); CREATININE - SERUM 0.9 mg/dL (0.6-1.3); MAGNESIUM - SERUM 2.3 mg/dL (1.8-2.4); POTASSIUM - SERUM 3.8 mmol/L (3.5-5.1); PROTEIN - SERUM 6.9 g/dL (6.4-8.2)
--- NOTE | 2017-02-21 07:00 | NUR ---
PT AWAKE AND ALERT, DISORIENTED TO TIME AND SITUATION. DENIES PAIN AT THIS TIME. ABLE TO FOLLOW COMMANDS BUT INCONSISTENT. SINUS TACH ON MONITOR. FULL SHIFT ASSESSMENT COMPLETED PER FLOWSHEET. O2 SAT REMAINS STABLE ON NC. DR CARL COMPLETED NEURO ASSESSMENT. UPDATE GIVEN TO DAUGHTER-ALLA. PT REMAINS IN RESTRAINTS, DOCUMENTED PER ORDER. WILL CONTINUE TO MONTIOR CLOSELY
--- NOTE | 2017-02-21 08:20 | EEG ---
PATIENT:KEMI DELGADO DATE OF SERVICE: 02/04/17 MEDICAL RECORD: [id number] DATE OF : 41 LOCATION:D.230 D.ICU ADMISSION DATE: 02/04/17 REFERRING PHYSICIAN: INTERPRETING PHYSICIAN: EMILIE CARL MD DATE OF SERVICE: 02/15/2017 Referred as an inpatient by myself, currently in room 2304. ELECTROENCEPHALOGRAM NUMBER: [id number]. DATE OF EXAMINATION: 02/15/2017 at to 2:10 p.m. DATE OF : 1945 TECHNICAL DATA: This electroencephalographic recording consisted of approximately 20 minutes of data collection utilizing the international 10/20 system of electrode placement and both referential and non-referential montages. Sixteen channels of electrocerebral recording are accompanied by a 17th channel dedicated to the electrocardiographic rhythm and to 2 channels of electromyographic recording. Recording is performed in the awake and drowsy states utilizing activation by photic stimulation. ELECTROENCEPHALOGRAPHIC DATA: The awake state comprises approximately 60% of the recorded electrocerebral activity. Electromyographic artifact is prominent and rapid eye movements are seen. The posterior dominant background consists of a symmetric, semi-arrhythmic, waxing and waning 7-8 Hz alpha activity, which is suppressed by eye opening. Also seen is an intermittent irregular, generalized and symmetric 1-2 Hz delta slowing, which occurs for periods of 1-2 seconds approximately once every 2-3 pages. The drowsy state comprises the remaining portion of the recorded electrocerebral activity. Electromyographic artifact is diminished and rapid eye movements are not seen. The posterior dominant background is relatively suppressed. Delta slowing is more prominent in stage I sleep. Occasional sharp vertex waves are also observed. No focal slowing is identified. No epileptiform discharges are seen. Photic stimulation induces no abnormal change in the recorded electrocerebral activity. INTERPRETATION: Intermittent slow, generalized (awake and drowsy). This electroencephalographic recording is indicative of a mild to moderate diffuse encephalopathy. TRANSINT:[id number] Voice Confirmation ID: [id number] DOCUMENT ID: [id number] ELECTROENCEPHALOGRAM REPORT [id number] KEMI DELGADO EMILIE CARL MD at 0820 CC: [id number] DICTATION DATE: 02/16/17 0657 EMR IMPLEMENTATION SPECIALIST: 02/16/17 1107 ADM IN [address] [place] [id number]
--- NOTE | 2017-02-21 09:00 | NUR ---
PT REPOSITIONED IN BED AND FEEDING TUBE BAG CHANGED. WILL CONTINUE TO MONITOR CLOSELY.
--- NOTE | 2017-02-21 11:00 | NUR ---
PT ASLEEP AT THIS TIME. NO ACUTE CHANGES IN STATUS AT THIS TIME. VITAL SIGNS STABLE. WILL CONTINUE TO MONITOR
--- NOTE | 2017-02-21 13:00 | NUR ---
NO ACUTE CHANGES IN PT STATUS AT THIS TIME. VITAL SIGNS STABLE. WILL CONTINUE TO MONITOR CLOSELY.
--- NOTE | 2017-02-21 15:00 | NUR ---
PT REPOSITIONED IN BED. COMPLETE LINEN CHANGE DONE. WILL CONTINUE TO MONTIOR
--- NOTE | 2017-02-21 17:00 | NUR ---
NO CHANGES IN STATUS AT THIS TIME. BED BATH GIVEN WITH FULL LINEN CHANGE. WILL CONTINUE TO MONITOR
--- NOTE | 2017-02-21 19:15 | NUR ---
ASSESSMENT COMPLETE. S1S2. PT MORE ALERT; REMAINS CONFUSED. ORIENTED TO SELF. RADIAL AND PEDAL PULSES PALPATED. RR EQUAL UNLABORED SHALLOW; DIMINISHED THROUGHOUT ALL LOBES. BUTTOCKS/COCCYX REDDENED WITH EXCORIATION NOTED. JOHNSON, RECTAL TUBE, AND NGT IN PLACE. NGT WITH SUPLENA @ 30ML/HR. PUPIL 3MM; SLUGGISH.
--- NOTE | 2017-02-21 23:00 | NUR ---
REASSESSMENT COMPLETE. NO CHANGES FROM PREVIOUS ASSESSMENT. WILL CONTINUE TO MONITOR.
[2017-02-22] VITALS (24 sets, daily range): BP systolic 118–161; BP diastolic 69–102
--- NOTE | 2017-02-22 03:00 | NUR ---
REASSESSMENT COMPLETE. NO CHANGES FROM PREVIOUS ASSESSMENT.
[2017-02-22 03:46] LABS: BASOPHILS 0 % (0-2); EOSINOPHILS 0.1 % (0-7); HEMATOCRIT 37.4 % (36.0-48.0); HEMOGLOBIN 11.6 g/dL (12-16); IMMATURE GRANULOCYTES 0.4 % (0-5); LYMPHOCYTES 6.3 % (15-50); MCH 35.2 pg (26.0-34.0); MCV 113.3 fL (80.0-100.0); MEAN PLATELET VOLUME 11.9 fL (7.4-10.4); MONOCYTES 3.5 % (2-11); NEUTROPHILS 89.7 % (40-80); PLATELET COUNT 228 10x3/uL (130-400); RDW 20.3 % (11.5-14.5); WBC 10.3 10x3/uL (4.8-10.8)
[2017-02-22 04:00] LABS: ALBUMIN 2.8 g/dL (3.4-5.0); ALKALINE PHOSPHATASE 201 U/L (46-116); ALT (SGPT) 182 U/L (10-68); CALC OSMOLALITY 283 mosm/kg (275-300); CALCIUM 9.1 mg/dL (8.5-10.1); CARBON DIOXIDE 32.2 mmol/L (21.0-32.0); CHLORIDE - SERUM 103 mmol/L (98-107); CREATININE - SERUM 0.7 mg/dL (0.6-1.3); GLUCOSE 176 mg/dL (74-106); MAGNESIUM - SERUM 1.8 mg/dL (1.8-2.4); PROTEIN - SERUM 6.4 g/dL (6.4-8.2); SODIUM 140 mmol/L (136-145); UREA NITROGEN 16 mg/dL (7-18); eGFR NON AFRICAN AMERICAN 87 mL/min (90-120)
--- NOTE | 2017-02-22 04:00 | NUR ---
CVL DRESSING CHANGED.
--- NOTE | 2017-02-22 07:30 | NUR ---
SHIFT ASSESSMENT VIA FLOWSHEET, SEE FOR DETAILS.
--- NOTE | 2017-02-22 09:00 | NUR ---
NO VISITORS AT THIS TIME, PT REPOSITONED FOR COMFORT.
--- NOTE | 2017-02-22 09:33 | NUR ---
Nutrition follow-up: Diet: Regular pureed with thin liquids Suplena now infusing @ 30 ml/hr Labs reviewed Wt: 185# PO intake is very poor at this time TF decreased to 30 ml/hr to encourage increased po intake. RDN following.
--- NOTE | 2017-02-22 11:00 | NUR ---
REASSESSMENT VIA FLOWSHEET, SEE FOR DETAILS.
--- NOTE | 2017-02-22 14:00 | NUR ---
PT OOB TO CHAIR WITH PHYSICAL THERAPY ASSIST.
--- NOTE | 2017-02-22 15:00 | NUR ---
REASSESSMENT VIA FLOWSHEET, SEE FOR DETAILS.
--- NOTE | 2017-02-22 19:15 | NUR ---
ASSESSMENT COMPLETE. S1S2. RR CRACKLES BILATERALLY IN UPPER LOBES; DIMINISHED BILATERALLY IN LOWER LOBES. SINUS TACHYCARDIA SHOWING ON MONITOR. PUPILS EQUAL; 3MM SLUGGISH. ANKLE AND MITT RESTRAINTS IN PLACE. JOHNSON CATH, RECTAL BAG, AND NGT IN PLACE. NGT WITH SUPLENA @ 40. VSS. NO DISTRESS NOTED. WILL CONTINUE TO MONITOR.
--- NOTE | 2017-02-22 21:10 | NUR ---
NO FAMILY DURING VISITATION.
--- NOTE | 2017-02-22 23:00 | NUR ---
REASSESSMENT COMPLETE. NO CHANGES FROM PREVIOUS ASSESSMENT. SEE FLOW SHEET FOR DETAILS.
[2017-02-23] VITALS (24 sets, daily range): BP systolic 103–148; BP diastolic 55–98
--- NOTE | 2017-02-23 03:00 | NUR ---
REASSESSMENT COMPLETE. NO CHANGES FROM PREVIOUS ASSESSMENT. VSS. NO DISTRESS NOTED. WILL CONTINUE TO MONITOR.
[2017-02-23 04:32] LABS: BASOPHILS 0 % (0-2); EOSINOPHILS 0.1 % (0-7); HEMATOCRIT 38.1 % (36.0-48.0); HEMOGLOBIN 11.8 g/dL (12-16); IMMATURE GRANULOCYTES 0.3 % (0-5); LYMPHOCYTES 8.6 % (15-50); MCH 34.7 pg (26.0-34.0); MCV 112.1 fL (80.0-100.0); MEAN PLATELET VOLUME 12.4 fL (7.4-10.4); MONOCYTES 4.1 % (2-11); NEUTROPHILS 86.9 % (40-80); PLATELET COUNT 252 10x3/uL (130-400); RDW 19.7 % (11.5-14.5); WBC 9.8 10x3/uL (4.8-10.8)
[2017-02-23 04:42] LABS: ALBUMIN 2.8 g/dL (3.4-5.0); ALKALINE PHOSPHATASE 218 U/L (46-116); ALT (SGPT) 196 U/L (10-68); BILIRUBIN - TOTAL 0.61 mg/dL (0.2-1.3); CALC OSMOLALITY 280 mosm/kg (275-300); CALCIUM 9.2 mg/dL (8.5-10.1); CARBON DIOXIDE 27.6 mmol/L (21.0-32.0); CHLORIDE - SERUM 103 mmol/L (98-107); CREATININE - SERUM 0.6 mg/dL (0.6-1.3); GLUCOSE 186 mg/dL (74-106); MAGNESIUM - SERUM 1.7 mg/dL (1.8-2.4); POTASSIUM - SERUM 4.2 mmol/L (3.5-5.1); PROTEIN - SERUM 6.5 g/dL (6.4-8.2); SODIUM 138 mmol/L (136-145); UREA NITROGEN 13 mg/dL (7-18); eGFR NON AFRICAN AMERICAN > 90 mL/min (90-120)
--- NOTE | 2017-02-23 07:30 | NUR ---
SHIFT ASSESSMENT VIA FLOWSHEET, SEE FOR DETAILS.
--- NOTE | 2017-02-23 09:06 | NUR ---
Nutrition follow-up/consult: Suplena now infusing @ 30 ml/hr; diet: regular pureed with thin liquids PO intake is poor at this time. Recommend bolusing 1 can of Suplena at meals if < 50% eaten x 3 meals. If po intake remains poor will need to provide continuous nocturnal TF. Thank you for the consult. RDN following.
--- NOTE | 2017-02-23 09:10 | NUR ---
PT OOB TO CHAIR WITH PHYSICAL THERAPY ASSIST.
--- NOTE | 2017-02-23 11:00 | NUR ---
REASSESSMENT VIA FLOWSHEET, SEE FOR DETAILS.
--- NOTE | 2017-02-23 12:11 | CN ---
PATIENT NAME:KEMI DELGADO MEDICAL RECORD: [id number] : 43 LOCATION:[id number] ADMIT DATE: 02/04/17 ACCOUNT: [id number] CONSULTING PHYSICIAN: RACHELL FAYE MD REFERRING PHYSICIAN: ROGERIO SNEED MD DATE OF CONSULTATION: 02/06/2017 CONSULT REQUESTING PHYSICIAN: Rogerio Sneed MD REASON FOR CONSULTATION: Hypoxia, increasing oxygen requirement. HISTORY OF PRESENT ILLNESS: Ms. Delgado is a 71-year-old female who has a history of alcoholism, continuous smoking and nicotine dependence. The patient was admitted with acute mental status changes and hallucination. The patient also requiring high oxygen with oxymizer. The patient recently had thrush and she had been given Diflucan by Dr. Bella. Denies any fever and chill, no night sweats. REVIEW OF SYSTEMS: Mainly in the history of present illness. PAST MEDICAL HISTORY: 1. Hypertension. 2. Gastroesophageal reflux disease. 3. Alcoholism. 4. History of constipation. 5. Depression and anxiety. PAST SURGICAL HISTORY: 1. Hysterectomy. 2. Nose septoplasty. ALLERGIES: No known drug allergies. PRESENT MEDICATIONS: She was on Levaquin, Ventolin inhaler, lactulose. Her other medication is reviewed. PERSONAL AND SOCIAL HISTORY: The patient is still a current everyday smoker. She is also drinking on a regular basis. FAMILY HISTORY: Significant for cancer. PHYSICAL EXAMINATION: GENERAL: Now, the patient is lying comfortably. She is not in acute distress. She is wearing nasal cannula oxygen. VITAL SIGNS: The blood pressure is 152/67, pulse is 110, respiration is 12, temperature is 97.9, SpO2 is 91% on 6 liter oxymizer. HEENT: Conjunctivae are pink, sclerae nonicteric. NECK: Supple, no JVD. CHEST: There is wheeze on forceful expiration. No crackles. HEART: Rhythm regular, normal sound, no murmur. ABDOMEN: Soft, bowel sounds present. No hepatosplenomegaly. RECTAL: Deferred. EXTREMITIES: No cyanosis, no clubbing. There is 1+ pedal edema. SKIN: Warm, normal turgor. CENTRAL NERVOUS SYSTEM: The patient is awake and alert, but she is a bit CONSULT REPORT [id number] KEMI DELGADO confused. LABORATORY DATA: CBC: The WBC is 6.9, hemoglobin 11, hematocrit 36 and the platelet count is 223. Chemistry: Sodium is 138, potassium is 3, BUN is 5, creatinine 0.9. The ammonia level is 92. The drug tox screen was negative. IMPRESSION: 1. Acute hypoxic respiratory failure. 2. Acute mental status changes secondary to metabolic encephalopathy. 3. Hepatic encephalopathy with an ammonia level of 92. 4. Delirium tremens. 5. History of alcoholism. 6. Tobacco dependence syndrome, suspect chronic obstructive pulmonary disease. 7. Gastroesophageal reflux. RECOMMENDATION: 1. I will check a CTA of the chest to rule out PE, rule out pneumonia, rule out atelectasis. 2. Increase the lactulose to 45 cc b.i.d. Start albuterol/ipratropium nebulizer. Start Brovana and budesonide nebulizer. 3. DVT prophylaxis. Check the ABGs. Dr. Sneed, once again thanks for involving me in the care of Ms. Delgado. TRANSINT:[id number] Voice Confirmation ID: [id number] DOCUMENT ID: [id number] RACHELL FAYE MD at 1211 CC: ROGERIO SNEED MD [id number] DICTATION DATE: 02/06/17 1443 [place] CONSULTANT: 02/07/17 0102 ADM IN [place] [id number] [place] [id number]
--- NOTE | 2017-02-23 15:00 | NUR ---
REASSESSMENT VIA FLOWSHEET, SEE FOR DETAILS.
--- NOTE | 2017-02-23 16:30 | NUR ---
COMPLETE BATH AND LINEN CHANGE PROVIDED. PT ASSISTED BACK TO BED.
--- NOTE | 2017-02-23 19:00 | NUR ---
Received patient resting in bed with eyes open, assessment completed per flowsheet. Patient disoriented to time/place/situation, calm and pleasant demeanor. Eyes PERRLA @ 4mm with brisk response, sclera is white. NGT R nare, secured. S1/S2 noted Sinus Tach with HR 106, rhythmic and regular. Breathing is shallow and unlabored on 4L via NC, crakles noted bilateral upper with diminished mid and lower lobes. Abdomen is soft and non-tender to palpation, bowel sounds hypoactive x4. [place] secured in place with concentrated urine in collection, Rectal tube secured with yellow/brown stool noted in bag. Full ROM all extremities with moderate weakness noted, all pulses palpable with cap refill <3 sec. L subclavian CVL noted, patent with dressing CDI. Patient denies pain or other needs at this time, all VSS and will continue to monitor.
--- NOTE | 2017-02-23 23:00 | NUR ---
Reassessment completed per flowsheet, patient resting in bed with eyes closed. S1/S2 noted Sinus Tach on telemetry with HR 110, rhythmic and regular. Breathing is shallow and unlabored on 4L via NC, O2 sat 95%. Patient denies pain or other needs at this time, all VSS and will continue to monitor.
[2017-02-24] VITALS (24 sets, daily range): BP systolic 97–158; BP diastolic 62–104
--- NOTE | 2017-02-24 03:00 | NUR ---
Reassessment completed per flowsheet, patient resting in bed with eyes open. Patient disoriented to time/place/situation, calm and cooperative. S1/S2 noted Sinus Tach on telemetry with HR 101, rhythmic and regular. Breathing is shallow on 4L via NC, O2 sat 94%. Patient denies pain or other needs at this time, all VSS and will continue to monitor.
[2017-02-24 03:55] LABS: BASOPHILS 0.1 % (0-2); EOSINOPHILS 0.3 % (0-7); HEMOGLOBIN 11.7 g/dL (12-16); IMMATURE GRANULOCYTES 0.4 % (0-5); LYMPHOCYTES 7.8 % (15-50); MCH 34.5 pg (26.0-34.0); MCHC 30.8 g/dL (31.0-37.0); MCV 112.1 fL (80.0-100.0); MEAN PLATELET VOLUME 11.7 fL (7.4-10.4); MONOCYTES 1.9 % (2-11); NEUTROPHILS 89.5 % (40-80); PLATELET COUNT 296 10x3/uL (130-400); RBC 3.39 10x6/uL (4.00-5.40); RDW 19.6 % (11.5-14.5); WBC 7.5 10x3/uL (4.8-10.8)
[2017-02-24 04:14] LABS: ALBUMIN 2.8 g/dL (3.4-5.0); ALKALINE PHOSPHATASE 183 U/L (46-116); ALT (SGPT) 189 U/L (10-68); BILIRUBIN - TOTAL 0.65 mg/dL (0.2-1.3); CALC OSMOLALITY 280 mosm/kg (275-300); CALCIUM 8.8 mg/dL (8.5-10.1); CARBON DIOXIDE 28.8 mmol/L (21.0-32.0); CHLORIDE - SERUM 102 mmol/L (98-107); CREATININE - SERUM 0.5 mg/dL (0.6-1.3); GLUCOSE 204 mg/dL (74-106); MAGNESIUM - SERUM 1.7 mg/dL (1.8-2.4); POTASSIUM - SERUM 4.2 mmol/L (3.5-5.1); PROTEIN - SERUM 6.6 g/dL (6.4-8.2); SODIUM 138 mmol/L (136-145); UREA NITROGEN 11 mg/dL (7-18); eGFR NON AFRICAN AMERICAN > 90 mL/min (90-120)
--- NOTE | 2017-02-24 07:15 | NUR ---
REPORT RECIEVED FROM ETL PROGRAMMER NURSE. CARE ASSUMED. FULL ASSESSMENT COMPLETE PER FLOWSHEET. REFER FOR DETAILS. WILL CONT TO MONITOR FOR CHANGES THROUGHOUT SHIFT.
--- NOTE | 2017-02-24 08:00 | NUR ---
HAIR BRUSHED AND PUT IN PONY TAIL. FULL LINEN CHANGE PROVIDED. FACE WASHED. REPOSITIONED FOR COMFORT IN BED. CALL LIGHT IN REACH. BED IN LOW POSITION. RESTRAINTS ON BILATERAL ANKLES PER PT'S REQUEST.
--- NOTE | 2017-02-24 08:30 | NUR ---
PHYSICAL THERAPY AT BEDSIDE. PT ASSISTED TO RECLINER WITH MODERATE ASSIST. RESTRAINTS OFF AT THIS TIME. WILL MONITOR.
--- NOTE | 2017-02-24 09:30 | NUR ---
SUPLENA BOLUS FEED PROVIDED VIA NGT PER ORDERS. PT ONLY TOOK 5 BITES OF BREAKFAST AND REFUSED TO EAT ANYTHING ELSE. SHE DID DRINK WHOLE CARTON OF MILK. TUBE FEEDS FLUSHED WITH H20 ORDRED. WILL CONT TO MONITOR INTAKE.
--- NOTE | 2017-02-24 11:00 | NUR ---
PT REMAINS IN RECLINER. NO ACUTE CHANGE NOTED AT THIS TIME.
--- NOTE | 2017-02-24 13:00 | NUR ---
REFUSED LUNCH. ONLY ATE A COUPLE BITES OF APPLE SAUCE AND PUDDING. I CAN OF SUPLENA GIVEN PER NGT. NO RESIDUAL NOTED.
--- NOTE | 2017-02-24 14:00 | NUR ---
SULLY WITH PT AT BEDSIDE TO ASSIST PT BACK TO BED. MODERATE ASSIST REQUIRED.
--- NOTE | 2017-02-24 16:00 | NUR ---
PT RESTING IN BED QUIETLY WITH EYES CLOSED. RESP EVEN AND UNLABORED.
--- NOTE | 2017-02-24 17:00 | NUR ---
ASSISTED WITH DINNER. ATE 75% OF MEAL.
--- NOTE | 2017-02-24 19:00 | NUR ---
REPORT RECIEVED, INITIAL ASSESSMENT COMPLETE, PLEASE SEE FLOW SHEETS FOR DETAILS. BED LOW AND LOCKED, CALL LIGHT IN REACH. VSS, WILL CONTINUE POC.
--- NOTE | 2017-02-24 21:00 | NUR ---
PT RESTING, DENIES PAIN/NEEDS ATT, VSS, BED LOW AND LOCKED, CALL LIGHT IN REACH. WILL CONTINUE POC.
--- NOTE | 2017-02-24 23:00 | NUR ---
REASSESSMENT COMPLETE, PLEASE SEE FLOW SHEETS FOR DETAILS. PT PROVIDES SELF ORAL CARE, SUGGESTED SHE TURN, SHE DID SO INDEPENDENTLY. BED LOW AND LOCKED, CALL LIGHT IN REACH. VSS ATT, WILL CONTINUE POC.
[2017-02-25] VITALS (23 sets, daily range): BP systolic 106–162; BP diastolic 64–107
--- NOTE | 2017-02-25 01:00 | NUR ---
PT RESTING, NO S&S OF ACUTE DISTRESS NOTED. VSS, BED LOW AND LOCKED, CALL LIGHT IN REACH. WILL CONTINUE POC.
--- NOTE | 2017-02-25 03:00 | NUR ---
REASSESSMENT COMPLETE, PLEASE SEE FLOW SHEETS FOR DETAILS. FULL BED BATH AND LINEN CHANGE PROVIDED. ASSISTED IN REPOSITIONING FOR COMFORT. DENIES PAIN/NEEDS ATT. VSS, BED LOW AND LOCKED, CALL LIGHT IN REACH. WILL CONTINUE POC.
[2017-02-25 04:29] LABS: BASOPHILS 0 % (0-2); EOSINOPHILS 0.1 % (0-7); HEMOGLOBIN 11.6 g/dL (12-16); IMMATURE GRANULOCYTES 0.7 % (0-5); MCH 35.2 pg (26.0-34.0); MCHC 31.4 g/dL (31.0-37.0); MCV 112.1 fL (80.0-100.0); MEAN PLATELET VOLUME 11.4 fL (7.4-10.4); NEUTROPHILS 86.2 % (40-80); PLATELET COUNT 277 10x3/uL (130-400); RDW 19.1 % (11.5-14.5)
[2017-02-25 04:30] LABS: WBC 9.8 10x3/uL (4.8-10.8)
[2017-02-25 04:46] LABS: ALBUMIN 2.9 g/dL (3.4-5.0); ALKALINE PHOSPHATASE 196 U/L (46-116); ALT (SGPT) 205 U/L (10-68); BILIRUBIN - TOTAL 0.68 mg/dL (0.2-1.3); CALCIUM 8.8 mg/dL (8.5-10.1); CARBON DIOXIDE 27.7 mmol/L (21.0-32.0); CHLORIDE - SERUM 100 mmol/L (98-107); GLUCOSE 188 mg/dL (74-106); MAGNESIUM - SERUM 1.9 mg/dL (1.8-2.4); POTASSIUM - SERUM 4.4 mmol/L (3.5-5.1); PROTEIN - SERUM 6.8 g/dL (6.4-8.2); SODIUM 136 mmol/L (136-145); eGFR NON AFRICAN AMERICAN 87 mL/min (90-120)
[2017-02-25 04:48] LABS: CALC OSMOLALITY 277 mosm/kg (275-300); CREATININE - SERUM 0.7 mg/dL (0.6-1.3); UREA NITROGEN 14 mg/dL (7-18)
--- NOTE | 2017-02-25 05:00 | NUR ---
REPOSITIONING PROVIDED. PT ASKED FOR SOMETHING TO EAT, PROVIDED JELLO, PUDDING AND APPLE SAUCE. SHE ASKED FOR A SANDWICH AND WAS INFORMED THAT THE DOCTORS SAY THAT SHE IS NOT READY FOR THAT YET. SHE SEEMS SOMEWHAT DISGRUNTLED ABOUT THIS, BUT ATE SOME PUDDING AND DID NOT VOICE ANY COMPLAINTS OTHERWISE. BED LOW AND LOCKED, CALL LIGHT IN REACH. VSS, WILL CONTINUE POC.
--- NOTE | 2017-02-25 10:17 | NUR ---
AWAKE AND CONFUSED, ASK QUESTIONS THAT DO NOT MAKE SENSE AND MAKES STATEMENTS THAT DO NOT MAKE SENSE. STATES SHE HAD BED IN UP IN THE CHAIR FOR 15 HOURS. SHE HAS NOT BEEN UP OVER AN HOUR. SKIN WARM AND DRY. IV RIGHT SUCLAVINA INFUSING WITH D5W AT 75 ML HOUR. FEED BREAKFAST DRANK FEW SIPS OF COFFE AND 1/2 CARTON OF HER THICKEN MILK DID NOT WANT ANY MORE SUPLEAN 1 CAN GIVEN PER NG. CHECKED NG TUBE FOR PLACEMENT AND AUDIBLE IN STOMACH. DOES COMPLAINT OFF AND ON OF NAUSEA BUT DOES NOT WANT ANYTHING FOR NAUSEA. PO MEDS TAKEN SOME COUGHING AFTER WARDS. UP IN CHAIR PER pt. TOLERATED FAIR. JOHNSON CATH PATENT. MONITOR SR. COOPERATIVE PLEASANTLY CONFUSED.
--- NOTE | 2017-02-25 13:52 | NUR ---
BARELY ATE 50% OF LUNCH WITH GREAT ENCOURAGEMENT AND SEVERAL ATTEMPTS. STATES SHE IS FULL. NURSE RETURNED AFTER A FEW MINUTES TO ATTEMPT AGAIN.
--- NOTE | 2017-02-25 17:30 | NUR ---
RETURNED TO BED WITH ASSISTANCES OF 2 NURSES TOLERATED FAIR, COMPLIANTS OF HER RECTUM HURTING. HAS MANY EXCUSES NOT TO EAT SUPPER, COUPLE BITES OF EACH ITEM TAKEN. CAN OF SUPLENA GIVEN. JOHNSON CATH PATENT. KEEPS TAKING HER OXYGEN OFF, REMINDED NUMBEROUS TIMES TO LEAVE IT ON. PULSE DOWN TO 88% WHEN OXYGEN IS OFF. STILL VERY CONFUSED HAS HER OWN CONVERSATION. ALWAYS PLEASANT. SCD APPLIED TO LOWER LEGS. RECTAL TUBE BAG CHANGED. TAKING SIPS OF ICE WATER ALL DAY. WITH MINIMAL COUGHING.
--- NOTE | 2017-02-25 19:00 | NUR ---
REPORT RECIEVED, INITIAL ASSESSMENT COMPLETE, PLEASE SEE FLOW SHEETS FOR DETAILS. PT PLEASENTLY CONFUSED ATT, COULD NOT TELL ME THE DATE. INSISTS THAT SHE IS GOING HOME TODAY, INFORMED HER THAT SHE WAS NOT. LUNG SOUNDS CLEAR BILAT. AND DIMINISHED IN LOWER LOBES. BS ACTIVE X4 QUAD. RECTAL TUBE IN PLACE AND EMPTYING EFFICIENTLY. PUPILS 3MM AND REACTIVE. PPP. REDNESS AND EXCORIATION ON BUTTOCKS NOTED. JOHNSON IN PLACE AND DRAINING TO BAG VIA GRAVITY BAG OFF FLOOR. REPOSITIONS SELF, PROVIDES SELF ORAL CARE. VSS ATT, BED LOW AND LOCKED, CALL LIGHT IN REACH. WILL CONTINUE POC.
--- NOTE | 2017-02-25 21:00 | NUR ---
PT REQUESTED BM CLEAN UP, THIS WAS PROVIDED WITH BED BATH AND FULL LINEN CHANGE. ORDERED BARRIOR CREAM APPLIED. JOHNSON CARE PROVIDED ATT. MEDS TOLERATED WELL. DENIES ANY OTHER NEEDS ATT, VSS, BED LOW AND LOCKED, CALL LIGHT IN REACH. WILL CONTINUE POC.
--- NOTE | 2017-02-25 22:37 | NUR ---
CLEANED UP A BM ACCIDENT FROM AROUND RECTAL TUBE. FULL LINEN CHANGE AND BED BATH GIVED. REPOSTITIONED. BED LOW AND LOCKED, CALL LIGHT IN REACH. VSS, WILL CONTINUE POC.
--- NOTE | 2017-02-25 23:00 | NUR ---
REASSESSMENT COMPLETE, PLEASE SEE FLOW SHEETS FOR DETAILS. BED LOW AND LOCKED, CALL LIGHT IN REACH. VSS, WILL CONTINUE POC.
[2017-02-26] VITALS (24 sets, daily range): BP systolic 108–167; BP diastolic 59–117
--- NOTE | 2017-02-26 00:40 | NUR ---
PT WAS COMPLAINING OF ABD PAIN, IF SHE NEEDED TO HAVE A BM, TOLD HER TO LET IT GO, AFTERWARDS SHE FELT MUCH BETTER AND A LARGE BM ACCIDENT AROUND RECTAL TUBE WAS BLEANED UP. FULL BED BATH WITH SOAP AND WATER AND FULL LINEN CHANGE PROVIDED. PT STATES SHE IS NOW COMFORTABLE AND WANTS TO REST. LIGHTS TURNED OUT. BED LOW AND LOCKED, VSS, WILL CONTINUE POC.
--- NOTE | 2017-02-26 01:15 | NUR ---
PT RESTING, NO S&S OF ACUTE DISTRESS NOTED, RR EVEN AND UNLABORED, VSS, BED LOW AND LOCKED, CALL LIGHT IN REACH. WILL CONTINUE POC.
--- NOTE | 2017-02-26 01:40 | NUR ---
HAD A MODERATE BM ACCIDENT AROUND RECTAL TUBE. CHECKED PLACEMENT AND WAS UNABLE TO REACH, ALSO IRRIGATED AND IRRIGATION CAME OUT PRIMARILY AROUND THE TUBE. BM WAS CLEANED UP, BED BATH AND FULL LINEN CHANGE PROVIDED. BED LOW AND LOCKED, CALL LIGHT IN REACH. VSS, WILL CONTINUE POC.
--- NOTE | 2017-02-26 03:00 | NUR ---
REASSESSMENT COMPLETE, PLEASE SEE FLOW SHEETS FOR DETAILS. INDEPENDENT IN MOVING AND ORAL CARE. CONFUSED TO TIME AND PLACE AND SITUATION ATT. NO OTHER CHANGES TO NOTE. BED LOW AND LOCKED, CALL LIGHT IN REACH. VSS, WILL CONTINUE POC.
--- NOTE | 2017-02-26 03:40 | NUR ---
ANOTHER BM ACCIDENT CLEANED UP, FULLED LINEN CHANGE, BED BATH, RECTAL TUBE NOW SEEMS TO BE WORKING AND HAS APPROX 70ML FECES IN BAG. VSS, BED LOW AND LOCKED, CALL LIGHT IN REACH. WILL CONTINUE POC.
[2017-02-26 04:16] LABS: BASOPHILS 0 % (0-2); EOSINOPHILS 0 % (0-7); HEMOGLOBIN 11.5 g/dL (12-16); IMMATURE GRANULOCYTES 0.4 % (0-5); LYMPHOCYTES 8.7 % (15-50); MCH 34.7 pg (26.0-34.0); MCHC 31.1 g/dL (31.0-37.0); MCV 111.8 fL (80.0-100.0); MEAN PLATELET VOLUME 11.2 fL (7.4-10.4); MONOCYTES 3.9 % (2-11); PLATELET COUNT 306 10x3/uL (130-400); RBC 3.31 10x6/uL (4.00-5.40); RDW 19.1 % (11.5-14.5); WBC 10.1 10x3/uL (4.8-10.8)
[2017-02-26 04:37] LABS: ALBUMIN 2.9 g/dL (3.4-5.0); ALKALINE PHOSPHATASE 192 U/L (46-116); ALT (SGPT) 199 U/L (10-68); BILIRUBIN - TOTAL 0.59 mg/dL (0.2-1.3); CALC OSMOLALITY 281 mosm/kg (275-300); CALCIUM 8.9 mg/dL (8.5-10.1); CARBON DIOXIDE 28.6 mmol/L (21.0-32.0); CHLORIDE - SERUM 103 mmol/L (98-107); CREATININE - SERUM 0.7 mg/dL (0.6-1.3); GLUCOSE 170 mg/dL (74-106); POTASSIUM - SERUM 4.1 mmol/L (3.5-5.1); PROTEIN - SERUM 6.7 g/dL (6.4-8.2); SODIUM 139 mmol/L (136-145); UREA NITROGEN 12 mg/dL (7-18); eGFR NON AFRICAN AMERICAN 87 mL/min (90-120)
--- NOTE | 2017-02-26 05:00 | NUR ---
RESTING CONFORTABLE, NO S&S OF ACUTE DISTRESS NOTED. BED LOW AND LOCKED, CALL LIGHT IN REACH. VSS, WILL CONTINUE POC.
--- NOTE | 2017-02-26 09:03 | NUR ---
ATE 2 BITES OF EGGS, POTATOES AND PUREED MEAT. SUPLEANA I CAN GIVEN AFTER CHECKING TUBE FOR PLACEMENT. PATIENT STATES SHE IS MISERABLE, HER STOMACH IS BOTHERING HER. ZOFRAN GIVEN BEFORE GIVING MEDS. SLEEPY. BUT AWAKES EASILY.REMEMBERS SHE IS IN THE HOSPITAL SOMETIMES
--- NOTE | 2017-02-26 17:41 | NUR ---
AT 2-3 BITES OF EACH ITEM ON HER SUPPER TRAY, MEAT, POTATOES AND CARROTS. DID HAVE SOME CHOKING. TAKING SIPS OF WATER WITHOUT CHOKING.
--- NOTE | 2017-02-26 18:26 | NUR ---
INCONT OF BOWEL LIQUID DARK BROWN STOOL MODERATE AMOUNT. PATIENT FEELS THE NEED TO HAVE A STOOL AND IT STARTS COMING. CAN GET THE BEDPAN UNDER HIM IN TIME. ASSIST WITH CLEAN ING OF PATIENT. MOISTURE BARRIER CREAM APPLIED.
--- NOTE | 2017-02-26 18:31 | NUR ---
MODERATE AMOUNT FOX YELLOW LIQUID STOOL. RECTAL TUBE FEEL OUT WHEN AMBULATING TO THE BED. LEAVING OUT TO ALLOW RECTUM TO REST. DAGOBERTO CARE DONE. TOTAL LINEN CHANGE
--- NOTE | 2017-02-26 19:00 | NUR ---
RECIEVED REPORT, INITIAL ASSESSMENT COMPLETE, PLEASE SEE FLOW SHEETS FOR DETAILS. C/O PAIN (CRAMPING) IN STOMACH 05/04, WILL SEE EMAR AND GIVE PAIN MEDS PER ORDERS. LUNG SOUNDS DINIMISHED IN LOWER LOBES. BOWEL SOUNDS ACTIVE X4 QUAD. PPP. PLEASANTLY CONFUSED. DISORIENTED TO TIME. VSS, BED LOW AND LOCKED, CALL LIGHT IN REACH. WILL CONTINUE POC.
--- NOTE | 2017-02-26 21:00 | NUR ---
PT RESTING, BED LOW AND LOCKED, CALL LIGHT IN REACH, VSS, WILL CONTINUE POC.
--- NOTE | 2017-02-26 23:00 | NUR ---
REASSESSMENT COMPLETE, PLEASE SEE FLOW SHEETS FOR DETAILS. BED LOW AND LOCKED, CALL LIGHT IN REACH. VSS, WILL CONTINUE POC.
[2017-02-27] VITALS (23 sets, daily range): BP systolic 112–163; BP diastolic 62–118
--- NOTE | 2017-02-27 01:04 | NUR ---
BM CLEANED UP, BARRIOR CREAM APPLIED. DENIES ANY PAIN/NEEDS ATT. BED LOW AND LOCKED, CALL LIGHT IN REACH. VSS, WILL CONTINUE POC.
--- NOTE | 2017-02-27 03:00 | NUR ---
REASSESSMENT COMPLETE, PLEASE SEE FLOW SHEETS FOR DETAILS. PT MOVING HERSELF AROUND IN BED. ASKED FOR BARRIER CREAM TO BE APPLIED TO BUTTOCKS, THIS WAS PROVIDED. DENIES PAIN AND ANY OTHER NEEDS ATT. BED LOW AND LOCKED, CALL LIGHT IN REACH. VSS, WILL CONTINUE POC.
[2017-02-27 04:37] LABS: BASOPHILS 0 % (0-2); EOSINOPHILS 0 % (0-7); HEMATOCRIT 38.1 % (36.0-48.0); HEMOGLOBIN 11.8 g/dL (12-16); IMMATURE GRANULOCYTES 0.5 % (0-5); LYMPHOCYTES 9.5 % (15-50); MCH 34.6 pg (26.0-34.0); MCV 111.7 fL (80.0-100.0); MEAN PLATELET VOLUME 11.1 fL (7.4-10.4); PLATELET COUNT 333 10x3/uL (130-400); RBC 3.41 10x6/uL (4.00-5.40); RDW 18.7 % (11.5-14.5); WBC 8.3 10x3/uL (4.8-10.8)
--- NOTE | 2017-02-27 04:58 | NUR ---
PT RESTLESS, DOES NOT WANT BP CUFF ON ARM SO MOVED TO RIGHT LEG. SAYING SHE WANTS TO GET UP. INFORMED HER THAT SHE WOULD NEED PHYSICAL THERAPY TO COME AND HELP HER GET UP. SHE SAID "I KNOW, I KNOW". SHE CONTINUE TO TURN HERSELF IN THE BED. ACTIVELY PASSIN GAS ATT. BED LOW AND LOCKED, CALL LIGHT IN REACH. VSS, WILL CONTINUE POC.
[2017-02-27 05:04] LABS: ALBUMIN 2.9 g/dL (3.4-5.0); ALKALINE PHOSPHATASE 191 U/L (46-116); ALT (SGPT) 212 U/L (10-68); BILIRUBIN - TOTAL 0.55 mg/dL (0.2-1.3); CALC OSMOLALITY 280 mosm/kg (275-300); CARBON DIOXIDE 29.3 mmol/L (21.0-32.0); CHLORIDE - SERUM 102 mmol/L (98-107); CREATININE - SERUM 0.6 mg/dL (0.6-1.3); GLUCOSE 187 mg/dL (74-106); POTASSIUM - SERUM 4.5 mmol/L (3.5-5.1); PROTEIN - SERUM 6.7 g/dL (6.4-8.2); SODIUM 138 mmol/L (136-145); UREA NITROGEN 12 mg/dL (7-18); eGFR NON AFRICAN AMERICAN > 90 mL/min (90-120)
--- NOTE | 2017-02-27 07:00 | NUR ---
PT AWAKE AND ALERT, DISORIENTED TO PLACE AND SITUATION. PT DENIES PAIN AT THIS TIME. PT IS ABLE TO OBEY COMMANDS. MOVES SELF IN BED WITH MINIMAL ASSISTANCE. ABLE TO SIT UP AND EAT BREAKFAST INDEPENDENTLY. SINUS TACH NOTED ON MONITOR. WILL CONTINUE TO MONITOR CLOSELY
--- NOTE | 2017-02-27 09:00 | NUR ---
PT UP TO CHAIR WITH PHYSICAL THERAPY. TOOK PO MEDS WITHOUT DIFFICULTY. EVALUATED BY SPEECH THERAPY AND DIET ADVANCED TO [facility] SOFT WITH THIN LIQUIDS. WILL MONITOR FOR DIFFICULTY SWALLOWING.
--- NOTE | 2017-02-27 09:37 | NUR ---
Nutrition follow-up: Diet upgraded to mechanical soft with thin liquids PO intake ~25% of meals; bolus of 1 can of Suplena if po intake at meals < 50% Labs reviewed +BM, loose Wt: 180# Will continue to provide food choices with selective menus and honor food choices. RDN following.
--- NOTE | 2017-02-27 11:00 | NUR ---
PT REMAINS UP IN CHAIR AND STATES THAT SHES READY TO GO HOME. REMAINS CONFUSED AT THIS TIME. ATTEMPTED TO REORIENT PT. WILL CONTINUE TO MONITOR.
--- NOTE | 2017-02-27 13:00 | NUR ---
PT BACK IN BED WITH 2 NURSES ASSISTANCE. COMPLETE LINEN CHANGE AND REPOSITIONED TO SIDE. WILL CONTINUE TO MONITOR
--- NOTE | 2017-02-27 15:00 | NUR ---
PT LYING IN BED AND REPOSITIONING SELF INDEPENDENTLY. REMAINS CONFUSED AT THIS TIME WITH NO ACUTE CHANGES NOTED. WILL CONTINUE TO MONITOR
--- NOTE | 2017-02-27 17:00 | NUR ---
FAMILY CAME TO VISIT PT. UPDATE GIVEN. PT SITTING UP EATING DINNER WITH MINIMAL ASSISTANCE. WILL CONTINUE TO MONITOR
--- NOTE | 2017-02-27 19:45 | NUR ---
REC'D TO CARE, AWAKE, PLEASANTLY CONFUSED. PT COOPERATIVE,, DENIES NEEDS. ADULT BRIEF ON PER REQUEST. JOHNSON CATH PATENT. REDDENED SAMIRAOCK NOTED - PT REPORTS "ITS BETTER". IVFS INFUSING TO L CVL, DSG C/D/I. NGT CLAMPED. PT DENIES NEEDS. ALARMS ON AND C/L IN USE.
--- NOTE | 2017-02-27 21:00 | NUR ---
NO VISITORS. VSS.
--- NOTE | 2017-02-27 23:15 | NUR ---
REASSESSMENT PER FLOWSHEET, NO ACUTE CHANGES. PT RESTING QUIETLY. VSS.
[2017-02-28] VITALS (9 sets, daily range): BP systolic 120–139; BP diastolic 76–89
--- NOTE | 2017-02-28 01:00 | NUR ---
PT RESTING WITH EYES CLOSED, VSS. ALARMS ON .
--- NOTE | 2017-02-28 02:53 | NUR ---
REASSESSMENT PER FLOWSHEET, NO ACUTE CHANGES. VSS.
[2017-02-28 04:51] LABS: BASOPHILS 0.2 % (0-2); EOSINOPHILS 1.8 % (0-7); HEMATOCRIT 37.8 % (36.0-48.0); HEMOGLOBIN 11.9 g/dL (12-16); IMMATURE GRANULOCYTES 0.5 % (0-5); LYMPHOCYTES 24.3 % (15-50); MCH 35.1 pg (26.0-34.0); MCHC 31.5 g/dL (31.0-37.0); MCV 111.5 fL (80.0-100.0); MEAN PLATELET VOLUME 10.7 fL (7.4-10.4); MONOCYTES 3.9 % (2-11); NEUTROPHILS 69.3 % (40-80); PLATELET COUNT 318 10x3/uL (130-400); RBC 3.39 10x6/uL (4.00-5.40); RDW 18.6 % (11.5-14.5); WBC 8.7 10x3/uL (4.8-10.8)
--- NOTE | 2017-02-28 05:00 | NUR ---
RESTING WITH EYES CLOSED, NO SIGN OF DISTRESS.
[2017-02-28 05:09] LABS: ALBUMIN 2.9 g/dL (3.4-5.0); ALKALINE PHOSPHATASE 178 U/L (46-116); ALT (SGPT) 222 U/L (10-68); BILIRUBIN - TOTAL 0.47 mg/dL (0.2-1.3); CALCIUM 8.8 mg/dL (8.5-10.1); CARBON DIOXIDE 27.5 mmol/L (21.0-32.0); CHLORIDE - SERUM 104 mmol/L (98-107); CREATININE - SERUM 0.6 mg/dL (0.6-1.3); MAGNESIUM - SERUM 1.8 mg/dL (1.8-2.4); PHOSPHOROUS 4.4 mg/dL (2.5-4.9); PROTEIN - SERUM 6.5 g/dL (6.4-8.2); SODIUM 139 mmol/L (136-145); UREA NITROGEN 12 mg/dL (7-18); eGFR NON AFRICAN AMERICAN > 90 mL/min (90-120)
[2017-02-28 05:13] LABS: CALC OSMOLALITY 278 mosm/kg (275-300); GLUCOSE 121 mg/dL (74-106); POTASSIUM - SERUM 3.4 mmol/L (3.5-5.1)
--- NOTE | 2017-02-28 06:43 | NUR ---
DR. SNEED NURSE PAGED AND NOTIFIED OF C/O ESCOBEDO - NEW ORDER REC'D.
--- NOTE | 2017-02-28 07:00 | NUR ---
PT AWAKE AND ALERT, DISORIENTED TO PLACE TIME AND SITUATION. OBEYS COMMANDS AND ABLE T0 MOVE SELF UP IN BED. NORMAL SINUS ON MONITOR. ACTIVE ROM IN EXTREMITIES X4. SHIFT ASSESSMENT DOCUMENTED PER FLOWSHEET. PT SITTING UP EATING BREAKFAST INDEPENDENTLY. WILL CONTINUE TO MONITOR FOR ANY CHANGES IN PT STATUS.
--- NOTE | 2017-02-28 09:00 | NUR ---
PT CLEANED UP AFTER BM, REPOSITIONED AND BED. BARRIER CREAM APPLIED TO BUTTOCK. WILL CONTINUE TO MONITOR
--- NOTE | 2017-02-28 10:30 | NUR ---
PT UP TO CHAIR WITH PHYSICAL THERAPY. SITTING IN CHAIR AT THIS TIME AND STATES SHE IS COMFORTABLE. VITAL SIGNS STABLE
--- NOTE | 2017-02-28 12:50 | NUR ---
PT WILL TRANSFER TO 2234 WHEN ROOM IS CLEAN. REPORT CALLED TO ILSA CALDERON.
--- NOTE | 2017-02-28 13:58 | NUR ---
PT TRANSFER TO MED SURG VIA WHEELCHAIR WITH BELONGINGS. PT SET UP IN BED WITH CALL LIGHT WITHIN REACH. PT TRANSFER SAFELY ON ROOM AIR. CALLED TO PUT PT ON 2L.
--- NOTE | 2017-02-28 14:20 | NUR ---
TRANSFERRED FROM ICU PER BED. VS 98.2 130/77 R 16 P 108 SAT 94. ON OXYGEN AT 2 LNC. LEFT CVL NOTED WITH TRIPLE LUMEN WITH DATE OF 02/22/17. PORTS FLUSHED EASILY. NG NOTED CLAMPED. JOHNSON NOTED. BED ALARM ON FOR SAFETY. CALL LIGHT IN REACH
--- NOTE | 2017-02-28 19:25 | NUR ---
RECIEVED SHIFT REPORT. PT IS LYING IN BED. PT IS ALERT TO PERSON AND PLACE ONLY AT THIS TIME. O2 @ 2 PER NASAL CANNULA. JOHNSON IS DRAINING URINE BY GRAVITY. NGT TO RIGHT NARE PATENT AND CLAMPED AT THIS TIME. IV IS PATENT AND FLUIDS ARE RUNNING PER ORDER. PT DENIES ANY PAIN AT THIS TIME. NO NEEDS ARE VERBALIZED AT THIS TIME. WILL CONTINUE TO MONITOR. SIDE RAILS ARE UP X 2. BED IS IN LOWEST POSITION. BED ALARM IS ON FOR SAFETY. CALL LIGHT IS WITHIN REACH.
--- NOTE | 2017-02-28 21:15 | NUR ---
SHIFT ASSESSMENT COMPLETED. NIGHT MEDS GIVEN WITH NO PROBLEMS. NO NEEDS ARE VOICED. WILL MONITOR. SIDE RAILS X 2. BED LOW. BED ALARM ON. CALL LIGHT IN REACH.
[2017-03-01 00:04] VITALS: BP 126/74
[2017-03-01 04:00] VITALS: BP 116/76
[2017-03-01 04:51] LABS: BASOPHILS 0 % (0-2); EOSINOPHILS 2.3 % (0-7); HEMATOCRIT 39.2 % (36.0-48.0); HEMOGLOBIN 12.2 g/dL (12-16); IMMATURE GRANULOCYTES 0.6 % (0-5); LYMPHOCYTES 27.5 % (15-50); MCH 34.7 pg (26.0-34.0); MCHC 31.1 g/dL (31.0-37.0); MCV 111.4 fL (80.0-100.0); MEAN PLATELET VOLUME 10.4 fL (7.4-10.4); MONOCYTES 3.7 % (2-11); NEUTROPHILS 65.9 % (40-80); PLATELET COUNT 349 10x3/uL (130-400); RBC 3.52 10x6/uL (4.00-5.40); RDW 18.3 % (11.5-14.5); WBC 8.8 10x3/uL (4.8-10.8)
[2017-03-01 05:06] LABS: ALBUMIN 3.1 g/dL (3.4-5.0); ALKALINE PHOSPHATASE 183 U/L (46-116); ALT (SGPT) 234 U/L (10-68); BILIRUBIN - TOTAL 0.51 mg/dL (0.2-1.3); CALC OSMOLALITY 276 mosm/kg (275-300); CALCIUM 9.2 mg/dL (8.5-10.1); CARBON DIOXIDE 26.5 mmol/L (21.0-32.0); CHLORIDE - SERUM 103 mmol/L (98-107); CREATININE - SERUM 0.5 mg/dL (0.6-1.3); GLUCOSE 118 mg/dL (74-106); MAGNESIUM - SERUM 1.8 mg/dL (1.8-2.4); POTASSIUM - SERUM 4.5 mmol/L (3.5-5.1); PROTEIN - SERUM 6.5 g/dL (6.4-8.2); SODIUM 138 mmol/L (136-145); UREA NITROGEN 12 mg/dL (7-18); eGFR NON AFRICAN AMERICAN > 90 mL/min (90-120)
--- NOTE | 2017-03-01 07:10 | NUR ---
PATIENT RESTING IN HER BED. NO S'S OF DISTRESS NOTED AT PRESENT TIME. NG TUBE NOTED TO RIGHT NARES AND CLAMPED OFF. BED ALARM IN PLACE FOR PATIENT'S SAFETY. PATIENT DENIES ANY NEEDS. CALL LIGHT IN PATIENT'S REACH. WILL MONITOR PATIENT.
[2017-03-01 08:39] VITALS: BP 119/67
--- NOTE | 2017-03-01 11:26 | NUR ---
PATIENT RESTING IN BED ON HER LEFT SIDE. EYES CLOSED. NO S/S OF DISTRESS NOTED AT PRESENT TIME. CALL LIGHT IN PATIENT'S REACH. WILL MONITOR PATIENT.
[2017-03-01 13:22] VITALS: BP 121/76
--- NOTE | 2017-03-01 13:32 | NUR ---
NUTRITION MONITORING & EVAL CHART REVIEWED, PT VISIT. TOLERATING REG MECH SOFT DIET. 25% INTAKE LUNCH. NG TUBE REMAINS IN PLACE. RD FOLLOWING
[2017-03-01 17:30] VITALS: BP 123/79
--- NOTE | 2017-03-01 19:25 | NUR ---
RECIEVED SHIFT REPORT. PT IS LYING IN BED. PT IS ALERT TO SELF AND PLACE ONLY AT THIS TIME. O2 @ 2 PER NASAL CANNULA. JOHNSON IS DRAINING URINE BY GRAVITY. PT DENIES ANY PAIN AT THIS TIME. PT REQUIRES VERY MINIMAL ASSISTANCE TURNING IN BED FOR COMFORT AND SKIN CARE. NGT TO RIGHT NARE PATENT AND CLAMPED OFF AT THIS TIME. IV IS PATENT AND FLUIDS ARE RUNNING PER ORDER. NO NEEDS ARE VERBALIZED AT THIS TIME. DAUGHTER AT THE BEDSIDE. WILL MONITOR. SIDE RAILS ARE UP X 2. BED IS IN LOWEST POSITION. BED ALARM IS ON FOR SAFETY. CALL LIGHT IS WITHIN REACH.
[2017-03-01 20:00] VITALS: BP 145/81
--- NOTE | 2017-03-01 21:08 | NUR ---
SHIFT ASSESSMENT COMPLETED. NIGHT MEDS GIVEN WITH NO PROBLEMS. NO NEEDS VOICED. WILL MONITOR. SIDE RAILS X 2. BED LOW. BED ALARM ON. CALL LIGHT IN REACH.
[2017-03-02] VITALS: BP 131/60
[2017-03-02 04:00] VITALS: BP 145/82
[2017-03-02 05:07] LABS: BASOPHILS 0.1 % (0-2); EOSINOPHILS 2.9 % (0-7); HEMATOCRIT 38.2 % (36.0-48.0); IMMATURE GRANULOCYTES 0.6 % (0-5); LYMPHOCYTES 28.2 % (15-50); MCH 34.7 pg (26.0-34.0); MCHC 31.4 g/dL (31.0-37.0); MCV 110.4 fL (80.0-100.0); MEAN PLATELET VOLUME 10.7 fL (7.4-10.4); MONOCYTES 3.9 % (2-11); NEUTROPHILS 64.3 % (40-80); PLATELET COUNT 320 10x3/uL (130-400); RBC 3.46 10x6/uL (4.00-5.40); RDW 17.8 % (11.5-14.5); WBC 7.9 10x3/uL (4.8-10.8)
[2017-03-02 05:29] LABS: ALBUMIN 2.9 g/dL (3.4-5.0); ALKALINE PHOSPHATASE 158 U/L (46-116); ALT (SGPT) 217 U/L (10-68); BILIRUBIN - TOTAL 0.47 mg/dL (0.2-1.3); CALC OSMOLALITY 279 mosm/kg (275-300); CALCIUM 9.1 mg/dL (8.5-10.1); CARBON DIOXIDE 26.5 mmol/L (21.0-32.0); CHLORIDE - SERUM 103 mmol/L (98-107); CREATININE - SERUM 0.6 mg/dL (0.6-1.3); GLUCOSE 118 mg/dL (74-106); POTASSIUM - SERUM 3.5 mmol/L (3.5-5.1); PROTEIN - SERUM 6.4 g/dL (6.4-8.2); SODIUM 140 mmol/L (136-145); UREA NITROGEN 12 mg/dL (7-18); eGFR NON AFRICAN AMERICAN > 90 mL/min (90-120)
--- NOTE | 2017-03-02 07:30 | NUR ---
RECIEVED PT DURING WALKING ROUNDS. PT RESTING IN BED WITH COMPLAINTS OF AGGITATION FROM THE NG TUBE. INFORMED PT THAT WE WOULD BE TALKING WITH THE DOCTOR ABOUT DD THE NG TUBE. ASSESSMENT DONE PER FLOWSHEET. BED IN LOW POSITION AND CALL LIGHT WITHIN REACH. WILL CONTINUE TO MONITOR.
[2017-03-02 08:29] VITALS: BP 116/76
--- NOTE | 2017-03-02 11:07 | NUR ---
NUTRITION MONITORING & EVAL CHART REVIEWED. PT VISIT. ~25% INTAKE BREAKFAST. NG TUBE REMAINS IN PLACE. CONSULT NOTED FOR TRANSITION TO PO DIET. RECOMMEND DC NG TUBE AND ADD ENSURE TO DIET ORDER. RD FOLLOWING
[2017-03-02 12:46] VITALS: BP 127/60
--- NOTE | 2017-03-02 14:10 | NUR ---
DC'D NG TUBE AT THIS TIME PER VERBAL ORDER FROM DR. PETERS, PT TOLERATED WELL, BED IN LOW POSITION AND CALL LIGHT WITHIN REACH. WILL CONTINUE TO MONTIOR.
[2017-03-02] MEDS ORDERED: XIFAXAN550 MG PO (16:08)
[2017-03-02] MEDS ORDERED: BROVANA15 MCG/2 M INH (16:08)
[2017-03-02] MEDS ORDERED: ATROVENT 0.02%2.5 ML UPD (16:11)
[2017-03-02] MEDS ORDERED: XOPENEX 0.0.63 MG/3 UPD (16:16)
[2017-03-02] MEDS ORDERED: LOVENOX30 MG/0.3 SC (16:16)
[2017-03-02] MEDS ORDERED: LOVENOX40 MG/0.4 SC (16:16)
[2017-03-02] MEDS ORDERED: CATAPRES TTS-20.2 MG TD (16:17)
[2017-03-02] MEDS ORDERED: GABAPENTIN100 MG PO (16:17)
[2017-03-02] MEDS ORDERED: PREDNISONE10 MG PO (16:19)
[2017-03-02] MEDS ORDERED: ZOFRAN4 MG PO (16:20)
[2017-03-02] MEDS ORDERED: CALMOSEPTINE OI71 GM TOPICAL (16:20)
[2017-03-02] MEDS ORDERED: PROTONIX40 MG PO (16:20)
[2017-03-02] MEDS ORDERED: CHRONULAC30 ML PO (16:23)
--- NOTE | 2017-03-02 17:50 | NUR ---
1100 ML OF CLEAR YELLOW URINE EMPTIED FROM PATIENT'S JOHNSON CATHETER. PATIENT'S JOHNSON CATHETER BULB DEFLATED AND CATHETER REMOVED WITHOUT ANY PROBLEMS NOTED. PATIENT'S LEFT UPPER CHEST SUBCLAVIAN PATENT WITH ALL 3 LUMENS FLUSHED. STITCHES REMOVED. SUBCLAVIAN LINE PULLED OUT WITHOUT ANY BLEEDING NOTED. A 2X2 GAUZE WITH MEDIPORE TAPE APPLIED OVER SITE.
[2017-03-02 20:00] VITALS: BP 120/69
--- NOTE | 2017-03-02 21:42 | NUR ---
PT RESTING IN BED. ALERT. CONFUSED. ATTEMPTED TO GET OUT OF BED WITHOUT ASSISTANCE. UNABLE TO REORIENT. SCHEDULED MEDS GIVEN. SHIFT ASSESSMENT COMPLETED. NO NEEDS VOICED. BED LOW.CALL LIGHT IN REACH. BED ALARM ON.
[2017-03-03] VITALS: BP 144/79
--- NOTE | 2017-03-03 03:53 | NUR ---
PT VERY CONFUSED. HOLLARING OUT THAT THERE IS POOP ON HER. PT CHECKED AND CLEAN AND DRY. UNABLE TO REORIENT. BED ALARM ON. CALL LIGHT IN REACH
[2017-03-03 04:00] VITALS: BP 149/63
--- NOTE | 2017-03-03 04:08 | NUR ---
PT CONFUSED. HALLUCINATING AND CALLING OUT. SAFETY MEASURES IN PLACE. CONTINUE PROVIDER CONTRACTING CONSULTANT'S PLAN OF CARE.
--- NOTE | 2017-03-03 07:30 | NUR ---
RECIEVED PT DURING WALKING ROUNDS, PT RESTING IN BED WITH NO COMPLAINTS OF PAIN OR DISCOMFORT AT THIS TIME. ASSESSMENT DONE PER FLOWSHEET. BED IN LOW POSITION AND CALL LIGHT WITHIN REACH. WILL CONTINUE TO MONITOR.
[2017-03-03 08:09] VITALS: BP 126/80
--- NOTE | 2017-03-03 11:25 | NUR ---
Rehab Note- Acute Rehab Prescreen order received. Met with the daughter and patient discussed Rehab and the patient's behaviors occuring at this time and needing them to be addressed prior to an IRF stay. Plan for donaldo-pysch eval at this time. Spoke with DEVIKA Colindres and KVNG Bryant. Thank you for this referral! Will continue to follow the patient at this time. Mirian Regalado RN Clinical Liaison, [facility] Re[facility]/ [place]
[2017-03-03 12:38] VITALS: BP 112/69
--- NOTE | 2017-03-03 14:21 | NUR ---
PT STATED AT THIS TIME THAT SHE WOULD BE WILLING TO GO TO [facility]. RELAYED TO CASE MANAGEMENT.
--- NOTE | 2017-03-03 15:01 | NUR ---
CM REASSESSMENT NOTE: PATIENT IS DISCHARGING TO SNF TODAY
[2017-03-03 15:32] VITALS: BP 105/73
--- NOTE | 2017-03-03 16:51 | NUR ---
REPORT CALLED TO [facility] AT THIS TIME.
--- NOTE | 2017-03-03 17:09 | NUR ---
PT [facility]ED [facility] AT THIS TIME.
== END 2017-03-03 17:10 | DRG 441 ==
LOC: D.ER 18:41 → D.MS 22:31 → D.ICU 22:31 → D.MS 02-28 13:43
PROVIDERS: Emergency Medicine; Internal Medicine Gastroenterology; Internal Medicine Pulmonary Disease; Nurse Practitioner Family; Radiology Diagnostic Radiology; ADMIT Legal Medicine
DX: K72.90 Hepatic failure, unspecified without coma (principal); J96.01 Acute respiratory failure with hypoxia; G93.41 Metabolic encephalopathy; J96.02 Acute respiratory failure with hypercapnia; J15.6 Pneumonia due to other Gram-negative bacteria; E87.2 Acidosis; F10.231 Alcohol dependence with withdrawal delirium; J44.1 Chronic obstructive pulmonary disease with (acute) exacerbation; J44.0 Chronic obstructive pulmonary disease with (acute) lower respiratory infection; R13.10 Dysphagia, unspecified; I10 Essential (primary) hypertension; K21.9 Gastro-esophageal reflux disease without esophagitis; F10.20 Alcohol dependence, uncomplicated; F17.200 Nicotine dependence, unspecified, uncomplicated

== ENCOUNTER 2017-03-03 17:10 | Inpatient (IN) | payer MEDICARE, OTHER ==
[~2017-03-03] VITALS: Ht 160 cm; Wt 70.9 kg
[~2017-03-03 17:10] MED LIST changes: +ACETAMINOPHEN500 M1 PO; +ATROVENT 0.02%2.5 ML UPD; +BROVANA15 MCG/2 M INH; +BUTRANS1 EAC1 TRANSDERM; +CALMOSEPTINE OI71 GM TOPICAL; +CATAPRES TTS-20.2 MG TD; +CHRONULAC30 ML PO; +FUROSEMIDE20 MG PO; +HYDROCODON-ACE1 EAC7 PO; +K-DUR20 MEQ PO; +LOVENOX30 MG/0.3 SC; +LOVENOX40 MG/0.4 SC; +NORVASC10 MG PO; +PREDNISONE10 MG PO; +PROTONIX40 MG PO; +REQUIP0.25 MG PO; +TRAZODONE HCL50 MG PO; +VITAMIN D5000 UNIT PO; +XIFAXAN550 MG PO; +XOPENEX 0.0.63 MG/3 UPD; +ZOFRAN4 MG PO; +ZOLOFT50 MG PO
--- NOTE | 2017-03-03 17:30 | NUR ---
PATIENT ADMITTED FROM [facility], SHE IS BROUGHT HERE BY STAFF IN A W/C, PATIENT CAN STAND AND TAKE SMALL STEPS WITH ASSIST, BUT SHE IS UNSTEADY, SHE HAS BEEN RECEIVING PT. PATIENT WAS ADMITTED UPSTAIRS WITH ENCEPHOLOPATHY AND ETOH HAPATITIS, SHE IS INCREASINGLY MORE CONFUSED AND ANXIOUS. UPON ARRIVAL SHE IS SCARED AND SHE SAID "I CAN'T STAY HERE, THIS IS NOT WHAT I EXPECTED" CALLED ALLA FROM ICU, SHE IS HER DAUGHTER AND SHE CAME DOWN TO HELP GET PAPERWORK SIGNED. PATIENT IS ANXIOUS. PATIENTS OTHER TWO DAUGHTERS CAME AND BROUGHT SOME CLOTHES, PATIENT IS PARANOID SHE SAYS THAT STAFF HERE HAVE GUNS. PATIENT IS CALMING THE MORE SHE IS TALKING WITH STAFF AND DAUGHTERS.
[2017-03-03 20:13] LABS: HEMOGLOBIN A1C 5.7 % (4.8-6.0)
[2017-03-03 20:23] LABS: CHOL - HDL RATIO 3.4 ratio (2.3-4.1); LDL-HDL RATIO 1.9 ratio (1.5-3.5); THYROID STIMULATING HORMONE 1.33 uIU/mL (0.36-3.74)
[2017-03-03 20:30] VITALS: BP 120/84
--- NOTE | 2017-03-04 03:03 | NUR ---
B) recieved patient in the day room, alert and oriented to self and hospital, calm and cooperative with assessment, friendly and pleasant, needy at times, I) PRN medications only this shift, monitored for safety, R) social with staff, p) cONTINUE PLAN OF CARE.
--- NOTE | 2017-03-04 06:56 | CN ---
PATIENT NAME:KEMI DELGADO MEDICAL RECORD: [id number] : 41 LOCATION:[place].1125 ADMIT DATE: 03/03/17 ACCOUNT: [id number] CONSULTING PHYSICIAN: SILVANO JEFF MD REFERRING PHYSICIAN: SILVANO JEFF MD DATE OF CONSULTATION: 03/03/2017 Psychiatric Consultation IDENTIFYING DATA: The patient is 71 years old and she is admitted to the hospital secondary to hepatic encephalopathy. CHIEF COMPLAINT: None. HISTORY OF PRESENT ILLNESS: The patient has had some significant and confused behavior. Based on reading the notes, she appears to be a little bit better today and indeed, her ammonia level is also down somewhat. She is apparently a fairly heavy drinker, although the exact amount is unclear. The patient is polite and cooperative, but she does not think she needs to see a psychiatrist and she does think that she is not being treated fairly by her daughter. She cannot exactly say why. It is just that her daughter does not generally help her like she should. She denies that she is confused. She denies psychotic symptoms and she denies any thoughts of harming herself or others. She also says that she is not going to drink again. MENTAL STATUS EXAMINATION: The patient is awake, alert and oriented to person, place and somewhat to time and situation. Her mood is euthymic. Her affect is appropriate. Thought processes are goal directed. Memory, concentration and abstraction abilities are mildly impaired and she denies any active intent to harm herself or others as well as overt psychotic symptoms. DIAGNOSTIC IMPRESSION: AXIS I: 1. Hepatic encephalopathy. 2. Alcohol abuse. PLAN: At this time, the patient clearly is confused, although it is not as severe as the notes indicated last night or in previous days. As to whether or not she has an underlying alcohol-related dementia or some other type of dementia, it is difficult to say given the current circumstances. The patient is adamant about not wanting to go to inpatient psychiatric care or inpatient substance abuse care. She indicates that she is not an alcoholic, but nevertheless, she is still not going to drink anymore. Therefore, she believes that there is no reason for her to accept any kind of substance abuse treatment. Regarding psychiatric care or mental health hospitalization because of the recent delusions that she has had, she says that those are all past and that is not necessary. In short, the patient does not meet inpatient criteria for hospitalization on an involuntary basis. That is to say I do not feel that I could get a court order to force her into psychiatric care. Nevertheless, I would like to further evaluate her underlying cognitive decline and I am recommending inpatient care if she is willing to accept it. I have discussed the situation with her daughter, who is going to try to get her to come into the hospital for an evaluation. If she does not, I would recommend testing on an outpatient basis by Dr. Gabbie Saul. CONSULT REPORT [id number] KEMI DELGADO TRANSINT:[id number] Voice Confirmation ID: [id number] DOCUMENT ID: [id number] SILVANO JEFF MD at 0656 CC: [id number] DICTATION DATE: 03/03/17 1416 BLOOD BANK LABORATORY PROFESSIONAL: 03/03/17 2339 ADM IN [facility] [address] [place] [address]
--- NOTE | 2017-03-04 10:12 | NUR ---
PATIENT WAS SITTING ON THE COUCH AND A MALE PATIENT SAT ON THE OTHER END. THIS PATIENT GOT CLOSER TO THE PATIENT. MOVED THE MALE PATIENT FROM THE COUCH.
[2017-03-04 10:30] VITALS: BMI 30.1
[2017-03-04 11:50] VITALS: BP 126/75
[2017-03-04 12:01] VITALS: BMI 30.1
--- NOTE | 2017-03-04 13:25 | NUR ---
B) PATIENT IS MAKING SOMATIC C/O STOMACH ACHE, & HEADACHE, SHE WANTS TO LAY ON THE COUCH ALL DAY, WE EXPLAINED THAT SHE CAN AFTER LUNCH. SHE LAY HER HEAD ON THE TABLE WITH HER PILLOWS. SHE IS MAKING NEGATIVE COMMENTS ABOUT WHAT STAFF HAVE SAID TO THE PATIENTS "DON'T TELL THAT BABY HE IS IRRITABLE" JUST MERELY STATED TO ANOTHER PATIENT THAT "WHEN WE CAN'T DO WHAT WE WANT IT CAN MAKE US IRRITABLE" PATIENT DID NOT LIKE THAT STAFF TOLD HER SHE WAS DEPRESSED. PATIENT SAID "I AM NOT" PATIENT IS HAVING SOME DELUSIONS ALSO, SHE HAS ASKED IF A FRIEND WAS IN THE OTHER ROOM BECAUSE SHE SAID "I HEARD HER LAUGHING" I) PROVIDE PRESCRIBED MEDS AND ENCOURAGE PATIENT TO BE INDEPENDENT. R) PATIENT WHEELED HERSELF IN W/C WITH STAFF ENCOURAGEMENT, BUT PATIENT SAID "THAT DOES NOT HELP" PATIENT IS DEMANDING AND HAS MINIMAL PATIENCE. P) CONTINUE POC.
--- NOTE | 2017-03-04 14:37 | NUR ---
PATIENT TOOK HER NONSKID SOCKS OFF AND SHE THEN PUT THEM ON HER HANDS AND USED THEM TO BRUSH HER HAIR. OFFERED PATIENT MORE NONSKID SOCKS SHE IS BEARFOOTED NOW, BUT PATIENT DECLINED STATING "NO, THEY'RE ROUGH ON THE BED, I THINK THEY ARE GETTING TOO BIG".
[2017-03-04 19:30] VITALS: BP 123/70
--- NOTE | 2017-03-04 23:37 | NUR ---
B) Recieved patient in the day room, alert and oriented to self and hospital, needy and attention seeking at times, cooperative with staff, I) Administered perscribed medications, PRN Haldoil 2 mg PO given at 2020 for anxiety, redirected as needed, R) Medication compliant, P) Continue plan of care.
[2017-03-05 07:00] VITALS: BP 116/42
[2017-03-05 13:00] VITALS: Ht 160 cm; Wt 70.9 kg
--- NOTE | 2017-03-05 13:01 | NUR ---
ORIENTED TO PERSON AND PLACE. PT IS LESS DEMANDING TODAY BUT SHE CONTINUES TO BE ANIXOUS. PT STATED SHE DID NOT SLEEP LAST NIGHT, BUT WHEN STAFF CHECKED HER SLEEP TIME SHE HAD SLEPT 7 HOURS. PT DENIED THIS. EDUCATED PT ON IMPORTANCE OF RECORDING SLEEP TIMES AND HYGIENE CARE. MEDICATIONS ADMINISTERED ORDERED. PT CONTINUES TO MAKE RANDOM DELUSIONAL STATEMENTS BUT CAN BE EASILY REDIRECTECD NEEDED. NO AGGRESSION NOTED. FALL PRECAUTIONS MAINTAINED. BOX ALARM IN PLACE. WILL CONTINUE TO MONITOR AND COTNTINUE WITH PLAN OF CARE.
[2017-03-05 19:30] VITALS: BP 118/61
--- NOTE | 2017-03-05 21:04 | NUR ---
RECEIVED IN DAYROOM. SITTING ON SOFA WITH PEERS AT HER SIDE. ALERT AND ORIENTED TO PERSON AND PLACE ONLY. SOCIAL WITH STAFF. CALM AND COOPERATIVE WITH CARE AND ASSESSMENTS. ENCOURAGE TO EXPRESS NEEDS. CONTINUES TO REST QUIETLY ON SOFA. CONTINUE PLAN OF CARE
[2017-03-06 06:49] LABS: BASOPHILS 0.3 % (0-2); EOSINOPHILS 1.2 % (0-7); HEMATOCRIT 33.1 % (36.0-48.0); HEMOGLOBIN 10.3 g/dL (12-16); IMMATURE GRANULOCYTES 0.5 % (0-5); MCH 33.9 pg (26.0-34.0); MCHC 31.1 g/dL (31.0-37.0); MCV 108.9 fL (80.0-100.0); MEAN PLATELET VOLUME 9.8 fL (7.4-10.4); MONOCYTES 6.4 % (2-11); NEUTROPHILS 63.6 % (40-80); PLATELET COUNT 289 10x3/uL (130-400); RBC 3.04 10x6/uL (4.00-5.40); RDW 17.3 % (11.5-14.5); WBC 7.4 10x3/uL (4.8-10.8)
[2017-03-06 06:59] LABS: INR 0.92 (0.85-1.17); PROTIME 12.2 SECONDS (11.6-15.0)
[2017-03-06 07:00] VITALS: BP 137/74
[2017-03-06 07:07] LABS: ALBUMIN 2.9 g/dL (3.4-5.0); ALKALINE PHOSPHATASE 112 U/L (46-116); ALT (SGPT) 197 U/L (10-68); CALC OSMOLALITY 280 mosm/kg (275-300); CALCIUM 8.3 mg/dL (8.5-10.1); CARBON DIOXIDE 26.8 mmol/L (21.0-32.0); CHLORIDE - SERUM 105 mmol/L (98-107); CREATININE - SERUM 0.7 mg/dL (0.6-1.3); GLUCOSE 103 mg/dL (74-106); POTASSIUM - SERUM 3.4 mmol/L (3.5-5.1); PROTEIN - SERUM 5.9 g/dL (6.4-8.2); SODIUM 141 mmol/L (136-145); UREA NITROGEN 13 mg/dL (7-18); eGFR NON AFRICAN AMERICAN 87 mL/min (90-120)
[2017-03-06 11:13] LABS: FOLATE (FOLIC ACID) - SERUM >20.0 ng/mL (>3.0); VITAMIN D 25 HYDROXY 23.4 ng/mL (30.0-100.0)
--- NOTE | 2017-03-06 14:10 | PSY ---
PATIENT NAME:KEMI DELGADO MEDICAL RECORD: [id number] : 41 LOCATION:[facility] ADMISSION DATE: 03/03/17 ACCOUNT: [id number] PSYCHIATRIC EVALUATION DATE OF EVALUATION: 03/04/17 IDENTIFYING DATA: The patient is 71 years old and she is admitted to the hospital on a voluntary basis. CHIEF COMPLAINT: Confusion. HISTORY OF PRESENT ILLNESS: The patient was admitted to the medical floor with some significant confusion. Apparently, she had an elevated ammonia level and had been drinking fairly excessively. I was asked to see her because of ongoing problems with the patient engaging and confused, agitated, sometimes irrational behavior and at other times behavior that is consistent with an attention seeking, help rejecting personality. The patient initially did not want to be hospitalized on the behavioral unit even though I was able to subsequently convince her to do so. She endorses some memory problems, some mood lability and continues to minimize her use of alcohol. PAST MEDICAL HISTORY: Significant for hypertension, gastroesophageal reflux disease, osteoarthritis. PAST PSYCHIATRIC HISTORY: Significant for alcohol abuse, if not outright dependence as well as depressive symptoms. FAMILY HISTORY: Unknown. SOCIAL HISTORY: The patient has been twice. Her second with whom she had been for 32 years about 6 months ago. She denies a history of excessive drinking, but again, that contradicts other sources of information from her family. MENTAL STATUS EXAMINATION: The patient is awake, alert and oriented to person, place and somewhat to time and situation. Her mood is flat. Her affect is constricted. Thought processes are circumstantial. Memory, concentration and abstraction abilities are moderately impaired and she denies that she would actively seek to harm herself or others as well as active psychotic symptoms. ALLERGIES: No known drug allergies. CURRENT MEDICATIONS: Include clonidine, Protonix, ____, Cytotec, prednisone, Desyrel, Zoloft, Requip, Norvasc, Boniva. ASSETS: Supportive family members. LIABILITIES: Limited insight. DIAGNOSTIC IMPRESSION: AXIS I: 1. Major depression, moderate severity without psychotic features. 2. Probable alcohol dependence. AXIS II: Cluster B personality traits. AXIS III: Hypertension, osteoarthritis. AXIS IV: Moderate stressors. AXIS V: Global assessment of functioning is 30. PLAN: At this time, the patient is admitted to the hospital for a comprehensive medical, psychological, and social evaluation. She will be treated with both mood stabilizing and memory enhancing medications as deemed appropriate. Her long-term prognosis is guarded. TRANSINT:[id number] Voice Confirmation ID: [id number] DOCUMENT ID: [id number] SILVANO JEFF MD at 1410 CC: [id number] DICTATION DATE: 03/04/17 1234 REFRIGERATION MECHANIC HELPER: 03/04/17 1645 [facility] IN [place] [id number] [place] [id number]
--- NOTE | 2017-03-06 14:50 | NUR ---
Alert and oriented times three, cooperative with assessment. Pleasant, answers questions and carries on appropriate conversation this am. Redirect and reorient as need. No delusions assessed this am, sits and socializes with activity therapist and does activities. Box alarm on chair, assisted to bathroom. Safety maintained. Continue plan of care and monitoring.
[2017-03-06 19:30] VITALS: BP 108/64
--- NOTE | 2017-03-06 20:00 | NUR ---
RECEIVED IN DAYROOM. SITTING IN CHAIR WITH PEERS AT HER SIDE. SOCIALIZING AT TIMES. CALM AND COOPERATIVE WITH CARE AND ASSESSMENTS. ENCOURAGE TO EXPRESS NEEDS. ENCOURAGE TO ASK FOR ASSIST. REMAINS CALM AND COOPERATIVE. CONTINUE PLAN OF CARE
[2017-03-07 03:08] LABS: RAPID PLASMA REAGIN Non Reactive (Non Reactive)
[2017-03-07 07:00] VITALS: BP 121/77
--- NOTE | 2017-03-07 11:31 | NUR ---
Alert and oriented times three. States she is here in the hospital because "i'm very sick." Calm and cooperative with unit milieu. Socializes with staff and peers. Safety maintained. Continue with plan of care and monitoring.
--- NOTE | 2017-03-07 12:01 | NUR ---
Following Dr. Saul evaluation patient making random delusional statements and paranoia. Also noted that at this time patient thinks it is February 09, and this is [facility] required reorientation.
--- NOTE | 2017-03-07 14:52 | PN ---
PATIENT:KEMI DELGADO MEDICAL RECORD: [id number] LOCATION:[facility]112 ADMISSION DATE: 03/03/17 PROGRESS NOTE DATE OF SERVICE: 03/06/2017 SUBJECTIVE: The patient's case was discussed with staff. She has no new complaint. OBJECTIVE: The patient looks better. She is better organized and more clear in her speech. She answers questions that make her uncomfortable in a very circumspect way, but I think this is more of her dodging, answering anything that she does not want to answer as much as it is confusion. In fact, I think it is more that she is trying to [place] answering things she does not want to talk about. She denies that she would seek to harm herself or others. She says that she is not going to drink anymore and she just wants to go home and have caregivers come to the house and take care of her. ASSESSMENT: No change in diagnoses. PLAN: I have asked Dr. Gabbie Saul to see the patient. She is already taking an antidepressant. She is not showing any evidence of withdrawal from alcohol. I think her long-term prognosis is guarded and I will have a better idea as to which direction to go with this case when I see the testing that hopefully will be done tomorrow. TRANSINT:[id number] Voice Confirmation ID: [id number] DOCUMENT ID: [id number] SILVANO JEFF MD at 1452 CC: [id number] DICTATION DATE: 03/06/17 1446 ACTUARIAL TECHNICIAN: 03/07/17 0224 ADM IN [place] [id number] [place] [id number]
[2017-03-07 19:30] VITALS: BP 137/80
--- NOTE | 2017-03-07 20:59 | NUR ---
REEIVED IN DAYROOM. SITTING IN CHAIR WITH PEERS BY HER SIDE. ALERT AND ORIENTED. CALM AND COOPERATIVE WITH CARE AND ASSESSMENTS. ENCOURAGE TO EXPRESS NEEDS. RESTING IN BED EYES OPEN AT THIS TIME. CONTINUE PLAN OF CARE
[2017-03-08 07:58] VITALS: BP 140/74
--- NOTE | 2017-03-08 17:34 | PN ---
PATIENT:KEMI DELGADO MEDICAL RECORD: [id number] LOCATION:[facility]112 ADMISSION DATE: 03/03/17 PROGRESS NOTE DATE OF SERVICE: 03/07/2017 SUBJECTIVE: The patient's case was discussed with staff. She has no new complaint. OBJECTIVE: The patient denies intent to harm herself or others. She tolerates her medicines well. She was tested by Dr. Gabbie Saul and scored 22/30. This places her in the mildly demented range. I think that the testing is consistent with Alzheimer's condition and I have explained this to the patient who was not very receptive. She was accusing me of making her feel negative other than just giving her information. I am going to prescribe Aricept. She does need to either have in-home caregivers or live in assisted living. TRANSINT:[id number] Voice Confirmation ID: [id number] DOCUMENT ID: [id number] SILVANO JEFF MD at 1734 CC: [id number] DICTATION DATE: 03/07/17 1450 ACCOUNTS COLLECTOR: 03/07/17 2353 ADM IN [facility] [address] [place] [id number]
--- NOTE | 2017-03-08 17:35 | NUR ---
Received this am alert and oriented to name and place, patient thinks situation is that she is just sick. Misinterpert conversations and makes random delusional statements. Intrusive when staff is with other patients. Redirect and reorient. Refocus to reality versus nonreality. Set limits. Redirects easily when she is intrusive, Continues with delusional thought and conversations throughout the day. Safety maintained. Continue plan of care.
[2017-03-08 20:00] VITALS: BP 129/67
--- NOTE | 2017-03-09 01:35 | NUR ---
B) Recieved patient in the day room, alert and oriented to self and being in a hospital, intrusive at times, misinterpets at times, I) Administered perscribed medications, monitored for falls and safety, R) Medication compliant, restig quietly now, P) Continue plan of care.
[2017-03-09 08:00] VITALS: BP 127/72
--- NOTE | 2017-03-09 13:50 | PN ---
PATIENT:KEMI DELGADO MEDICAL RECORD: [id number] LOCATION:[facility]112 ADMISSION DATE: 03/03/17 PROGRESS NOTE DATE OF SERVICE: 03/08/2017 SUBJECTIVE: The patient's case was discussed with staff. She has no new complaint. OBJECTIVE: The patient is tolerating her initial dose of Aricept well. She has evidence of serious cognitive impairment as discussed yesterday with her testing. ASSESSMENT: No change in diagnoses. PLAN: The patient will be maintained on current medicines, which I have reviewed. Her long-term prognosis is guarded. TRANSINT:[id number] Voice Confirmation ID: [id number] DOCUMENT ID: [id number] SILVANO JEFF MD at 1350 CC: [id number] DICTATION DATE: 03/08/171748 PSYCHIATRY ADULT PHYSICIAN: 03/09/17 0239 ADM IN [facility] [address] [place] [id number]
[2017-03-09] MEDS ORDERED: ARICEPT5 MG PO (14:11)
[2017-03-09] MEDS ORDERED: CYTOTEC200 MCG PO (14:12)
[2017-03-09] MEDS ORDERED: NEURONTIN 300300 MG PO (14:12)
[2017-03-09] MEDS ORDERED: VOLTAREN75 MG PO (14:12)
--- NOTE | 2017-03-09 15:05 | NUR ---
STM LOSS NOTED STAFF REDIRECTS NEEDED. NO AGGRESSION NOTED. DENIES SI. POSITIVE REINFORCEMENT GIVEN FOR POSITIVE BEHAVIOR. MEDICATIONS GIVEN ORDERED. FALL PRECAUTIONS MAINTAINED. WILL CONTINUE TO MONITOR AND CONTINUE WITH PLAN OF CARE.
--- NOTE | 2017-03-09 18:32 | NUR ---
PATIENT C/O H/A AND SHE SAYS SHE IS HOT, SHE SAYS SHE HAS A TENSION H/A AND SHE IS UPSET. TYLENOL 1000 MG PO GIVEN AND A WASHCLOTH TO HER FOREHEAD AND ONE TO HER BACK OF HER NECK.
--- NOTE | 2017-03-09 19:00 | NUR ---
PATIENT STILL HAS A H/A, BUT SHE IS SITTING CALMLY.
[2017-03-09 19:20] VITALS: BP 110/62
--- NOTE | 2017-03-09 20:30 | NUR ---
RECEIVED IN DAYROOM, SITTING IN CHAIR WITH PEERS. SOCIALIZING WITH STAFF AND PEERS. CALM AND COOPERATIVE WITH CARE, ASSESSMENT COMPLETED PER FLOW SHEET. DENIES SI, NO AGGRESSION NOTED. ADMINISTERED PRESCRIBED MEDICATIONS. VSS. FALL PRECAUTIONS MAINTAINED. WILL CONTINUE WITH PLAN OF CARE.
--- NOTE | 2017-03-10 08:59 | NUR ---
FAXED PATIENT'S D/C ORDERS AND MAR TO THE [facility] PATIENT'S BELONGINGS ARE PACKED AND READY TO GO.
[2017-03-10 09:25] VITALS: BP 123/67
--- NOTE | 2017-03-10 10:30 | NUR ---
B) PATIENT IS AWAKE AND ALERT, SHE HAS NOT BEEN STAFF SPLITTING OR MANIPULATIVE TODAY. SHE CAN STAND AND NEEDS ASSIST WITH TRANSFERS, SHE AMBULATES WITH A WALKER AND STAFF ASSIST. I) PROVIDE PRESCRIBED MEDS. R) PATIENT IS COMPLIANT WITH MEDS AND PARTICIPATES IN GROUPS. P) CONT POC.
--- NOTE | 2017-03-10 13:00 | NUR ---
[facility] REAL ESTATE MANAGER PICKED HER UP WITH HER BELONGINGS AND A HARD COPY OF HER D/C ORDERS AND MAR. PATIENT D/C'D OFF THE UNIT NOW.
--- NOTE | 2017-03-13 09:00 | PN ---
PATIENT:KEMI DELGADO MEDICAL RECORD: [id number] LOCATION:[facility]112 ADMISSION DATE: 03/03/17 PROGRESS NOTE DATE OF SERVICE: 03/10/2017 SUBJECTIVE: No new complaint. OBJECTIVE: The patient has been stable. Plans are for discharge today to [facility]. On exam, mood is euthymic. Affect is bland. Speech is somewhat terse. Content of thought is negative for overt psychosis. Sensorium is unchanged. ASSESSMENT: No change in diagnosis. PLAN: 1. The patient will be discharged today to the half-way on current treatment. TRANSINT:[id number] Voice Confirmation ID: [id number] DOCUMENT ID: [id number] LAKESHA CROSS III, MD at 0900 CC: [id number] DICTATION DATE: 03/10/171125 TEACHER ELEMENTARY SCHOOL: 03/10/172107 DIS IN 03/10/17 [facility] [address] [place] [address]
--- NOTE | 2017-03-13 14:09 | PN ---
PATIENT:KEMI DELGADO MEDICAL RECORD: [id number] LOCATION:[facility]ws112 ADMISSION DATE: 03/03/17 PROGRESS NOTE DATE OF SERVICE: 03/09/2017 SUBJECTIVE: The patient's case was discussed with staff. She has no new complaint. OBJECTIVE: The patient is in good behavioral control. She has limited insight about her condition. She is not wanting to hurt herself. She has been evaluated by [facility] and I am hopeful that she can be transitioned there. ASSESSMENT: No change in diagnoses. PLAN: The patient will likely be discharged from the hospital tomorrow. Her long-term prognosis is guarded. TRANSINT:[id number] Voice Confirmation ID: [id number] DOCUMENT ID: [id number] SILVANO JEFF MD at 1409 CC: [id number] DICTATION DATE: 03/09/17 1410 PRINTING PRESSMAN: 03/10/17 0142 DIS IN 03/10/17 [place] [id number] [place] [address]
== END 2017-03-10 13:00 | DRG 56 ==
LOC: D.PSYCH 17:10
PROVIDERS: Family Medicine; ADMIT Psychiatry & Neurology Psychiatry
DX: G30.9 Alzheimer's disease, unspecified (principal); K72.91 Hepatic failure, unspecified with coma; F33.1 Major depressive disorder, recurrent, moderate; F02.81 Dementia in other diseases classified elsewhere, unspecified severity, with behavioral disturbance; F10.27 Alcohol dependence with alcohol-induced persisting dementia; E78.5 Hyperlipidemia, unspecified; G25.81 Restless legs syndrome; J44.9 Chronic obstructive pulmonary disease, unspecified; K21.9 Gastro-esophageal reflux disease without esophagitis; Z72.0 Tobacco use; E55.9 Vitamin D deficiency, unspecified; I10 Essential (primary) hypertension; M19.90 Unspecified osteoarthritis, unspecified site; K70.10 Alcoholic hepatitis without ascites

== ENCOUNTER 2017-03-23 10:41 | Inpatient (IN) | payer MEDICARE, OTHER ==
[~2017-03-23] VITALS: Ht 160 cm; Wt 76.2 kg
[~2017-03-23 10:41] MED LIST changes: +ARICEPT5 MG PO; +CYTOTEC200 MCG PO; +NEURONTIN 300300 MG PO; +VOLTAREN75 MG PO
[2017-03-23 12:27] LABS: BASOPHILS 0.3 % (0-2); EOSINOPHILS 0.5 % (0-7); HEMOGLOBIN 9.2 g/dL (12-16); IMMATURE GRANULOCYTES 1.9 % (0-5); LYMPHOCYTES 21.5 % (15-50); MCH 31.2 pg (26.0-34.0); MCHC 30.7 g/dL (31.0-37.0); MCV 101.7 fL (80.0-100.0); MEAN PLATELET VOLUME 9.3 fL (7.4-10.4); MONOCYTES 10.1 % (2-11); NEUTROPHILS 65.7 % (40-80); RBC 2.95 10x6/uL (4.00-5.40); RDW 18.5 % (11.5-14.5); WBC 7.4 10x3/uL (4.8-10.8)
[2017-03-23 12:32] LABS: PLATELET COUNT 522 10x3/uL (130-400)
[2017-03-23 12:42] LABS: ALBUMIN 2.2 g/dL (3.4-5.0); ALKALINE PHOSPHATASE 109 U/L (46-116); ALT (SGPT) 36 U/L (10-68); BILIRUBIN - TOTAL 0.21 mg/dL (0.2-1.3); CALC OSMOLALITY 279 mosm/kg (275-300); CALCIUM 8.4 mg/dL (8.5-10.1); CARBON DIOXIDE 25.7 mmol/L (21.0-32.0); CHLORIDE - SERUM 105 mmol/L (98-107); CREATININE - SERUM 0.5 mg/dL (0.6-1.3); GLUCOSE 145 mg/dL (74-106); POTASSIUM - SERUM 4.2 mmol/L (3.5-5.1); PROTEIN - SERUM 6.2 g/dL (6.4-8.2); SODIUM 139 mmol/L (136-145); UREA NITROGEN 10 mg/dL (7-18); eGFR NON AFRICAN AMERICAN > 90 mL/min (90-120)
[2017-03-23 12:51] LABS: CREATINE KINASE 25 UL (21-215); MAGNESIUM - SERUM 1.3 mg/dL (1.8-2.4); PRO BNP 582 pg/mL (0-125)
[2017-03-23 12:58] LABS: TROPONIN-I < 0.017 ng/mL (0.000-0.060)
--- NOTE | 2017-03-23 15:28 | NUR ---
RECEIVED TO ROOM 2217 FROM THE ER VIA STRETCHER. PT ALERT AND ORIENTED X4 WITH OXYGEN ON 2L VIA NC AND EXPERIENCING DYSPNEA ON EXERTION. ASSESSMENT AND HISTORY OBTAINED PER FLOWSHEET WITH THE ASSISTANCE OF PAPERWORK FROM THE TODD. IV TO LEFT WRIST PATENT AND TENDER WITH NO S/S OF INFILTRATION PRESENT. ORIENTED PT TO ROOM. VANDANA MAT ALARM IN USE WITH BEDSIDE COMMODE NEARBY FOR FALL PRECAUTIONS. DENIES NEEDS AT PRESENT TIME. WILL CONTINUE WITH PLAN OF CARE.
[2017-03-23] MEDS ORDERED: K-TAB10 MEQ PO (15:47)
[2017-03-23] MEDS ORDERED: FUROSEMIDE20 MG PO (15:47)
[2017-03-23] MEDS ORDERED: PERCOCET 7.5/321 TAB PO ×2 (15:50→15:51)
[2017-03-23] MEDS ORDERED: VITAMIN B-1100 M1 PO (15:51)
[2017-03-23] MEDS ORDERED: QUESTRAN PACK4 G/PKT PO (15:51)
[2017-03-23] MEDS ORDERED: ATARAX 25 MG TA25 MG PO (15:52)
[2017-03-23] MEDS ORDERED: VITAMIN D5000 UNIT PO (15:54)
[2017-03-23 16:08] VITALS: BP 125/50
[2017-03-23 16:35] VITALS: BP 125/50; BMI 29.8
[2017-03-23 20:00] VITALS: BP 121/69
--- NOTE | 2017-03-23 21:50 | NUR ---
SPOKE WITH AMINAH FELT COVERER FOR DR. SNEED AND SHE AUTHORIZED THE PATIENT'S HOME MEDICATIONS TO BE RESTARTED.
[2017-03-24] VITALS: BP 114/49
--- NOTE | 2017-03-24 02:40 | NUR ---
PATIENT RESTING IN BED AND DENIES NEEDS AT THIS TIME. BED IN LOWEST POSITION AND CALL LIGHT WITHIN REACH. ENCOURAGED THE PATIENT TO CALL IF SHE HAS NEEDS.
[2017-03-24 04:00] VITALS: BP 113/55
--- NOTE | 2017-03-24 07:15 | NUR ---
REPORT RECEIVED FROM PHOTOGRAPHIC HAND DEVELOPER NURSE. CALL LIGHT IN REACH.
[2017-03-24 08:09] VITALS: BP 107/59
--- NOTE | 2017-03-24 08:30 | NUR ---
PATIENT IS AWAKE, ALERT AND ORIENTED. ASSISTED PATIENT TO THE BEDSIDE COMMODE. PATIENT HAD GREEN LIQUIDY BM. ASSISTED PATIENT BACK TO BED. PATIENT VERBALIZED NAUSEA. TRIED TO FLUSH IV TO LEFT WRIST, PATIENT VERBALIZED BURNING, HARD TO FLUSH. D/C WITH CATHETER INTACT. STARTED IV TO RIGHT FOREARM X'S 1 ATTEMPT. 22G. ADMINISTERED ZOFRAN THROUGH IV TO RIGHT FOREARM. PATIENT STATED SHE HAS TO USE THE BATHROOM AGAIN. TOOK PATIENT TO THE BEDSIDE COMMODE, PATIENT HAD A BOWEL MOVEMENT, LIQUID AND GREEN. ASSISTED PATIENT PUTTING ON BUTT PASTE, AND A NEW BRIEF. ASSISTED PATIENT BACK TO BED. DAUGHTER NOW IN ROOM. BOTH DENY NEEDS. BED IN LOWEST POSITION, CALL LIGHT IN REACH. BED RAILS UP X'S 2.
--- NOTE | 2017-03-24 08:30 | NUR ---
ASSESSMENT COMPLETED. REFUSES SCDs. PERCOCET PO WITH AM MEDS. CALL LIGHT IN REACH. WILL CONTINUE WITH PLAN OF CARE.
--- NOTE | 2017-03-24 09:20 | NUR ---
STATES SHE IS HAVING DIARRHEA AND INCREASED URINE OUTPUT EVEN THOUGH SHE REFUSED HER LASIX. WILL NOTIFY CALL DEVYN IN REACH.
--- NOTE | 2017-03-24 11:19 | NUR ---
ASSISTED TO BR X2 WHILE IN ROOM AND ASSISTED BACK TO BED.
[2017-03-24 12:36] VITALS: BP 103/51
--- NOTE | 2017-03-24 12:39 | NUR ---
Patient Name: KEMI DELGADO Admission Status: ER Accout number: [id number] Admission Date: 03-23-2017 : 1945 Admission Diagnosis:PNEUMONIA, UNSPECIFIED ORGANISM Attending: ISRAEL Current LOS: 1 Anticipated DC Date: Planned Disposition: Primary Insurance: MEDICARE A & B Discharge Planning Comments: CM attempted to met with patient to discuss discharge planning needs. She was unable to answer questions because she was having pain in her legs. Saritha TEXTILE PIN WORKER in room. CM will attempt to visit with her again at a later time. Saritha did state that she came from [facility] and her daughter Lorelei is an ICU nurse here at [facility]. PCP: [facility] Pharmacy: [facility] [address] Daughter :Lorelei Tile And Marble Installer: Yamel Tran * Is the patient Alert and Oriented? Yes 0 * PCP [facility] 0 * Pharmacy [facility] * Preadmission Environment Custodial Acute Care Facility 0 * Facility Name [facility] 0 * List name and contact numbers for known caregivers / representatives who currently or will assist patient after discharge: Lorelei-daughter 0 Grand Total: 0
--- NOTE | 2017-03-24 13:25 | NUR ---
TO RADIOLOGY AND BACK.
[2017-03-24 13:34] VITALS: Ht 160 cm; Wt 76.2 kg
--- NOTE | 2017-03-24 14:55 | NUR ---
BENADRYL AND PERCOCET PO PER C/O ITCHING AND PAIN. URINE AND STOOL SAMPLE COLLECTED AND SENT TO LAB FOR UA AND CDT. FAMILY IN ROOM. CALL LIGHT IN REACH.
[2017-03-24 15:38] LABS: APPEARANCE CLEAR (CLEAR); BILIRUBIN NEGATIVE (NEGATIVE); COLOR YELLOW (YELLOW); GLUCOSE NEGATIVE (NEGATIVE); KETONE NEGATIVE (NEGATIVE); LEUKOCYTE ESTERASE NEGATIVE (NEGATIVE); NITRITE NEGATIVE (NEGATIVE); PROTEIN NEGATIVE (NEGATIVE); SPECIFIC GRAVITY 1.015 (1.005-1.020); UROBILINOGEN NORMAL (NORMAL)
[2017-03-24 15:50] VITALS: BP 130/60
--- NOTE | 2017-03-24 16:11 | NUR ---
RESTING WITH EYES CLOSED. RESP EVEN AND UNLABORED. CALL LIGHT IN REACH.
--- NOTE | 2017-03-24 18:17 | NUR ---
TO BSC AND BACK TO BED. PERCOCET AND BENADRYL PO. NO CHANGES IN INITIAL ASSESSMENT. CALL LIGHT IN REACH. STILL REFUSES SCDs. WILL CONTINUE WITH PLAN OF CARE.
[2017-03-24 20:00] VITALS: BP 112/58
[2017-03-25] VITALS: BP 122/53
--- NOTE | 2017-03-25 07:09 | NUR ---
REPORT RECEIVED FROM METROLOGY MANAGER NURSE. CALL LIGHT IN REACH.
[2017-03-25 08:16] VITALS: BP 93/52
--- NOTE | 2017-03-25 08:30 | NUR ---
ASSESSMENT COMPLETED. REFUSES SCDs AND BED ALARM ON. DENIES NEEDS. CALL LIGHT IN REACH. WILL CONTINUE WITH PLAN OF CARE.
--- NOTE | 2017-03-25 10:03 | NUR ---
REFUSED LACTULOSE AND LASIX. HELP COLUMBA D/T BP OF 93/52.
--- NOTE | 2017-03-25 12:17 | NUR ---
PERCOCET AND BENADRYL PO PER PATIENT REQUEST D/T PAIN AND ITCHING.
[2017-03-25 12:46] VITALS: BP 104/57
--- NOTE | 2017-03-25 14:23 | NUR ---
IN BED WITH EYES CLOSED. RESP EVEN AND UNLABORED. CALL LIGHT IN REACH.
[2017-03-25 16:14] VITALS: BP 117/51
--- NOTE | 2017-03-25 16:28 | NUR ---
PATIENT IS AWAKE, ALERT AND ORIENTED X'S 4. PATIENT IS RECIEVING OXYGEN VIA NASAL CANNULA AT 2L/MIN. PATIENT IS NOT IN DISTRESS AT THIS TIME. PATIENT DENIES NEEDS. BED IN LOWEST POSITION, CALL LIGHT IN REACH. BED RIALS UP X'S 2. HOB 30 DEGREES.
--- NOTE | 2017-03-25 17:28 | NUR ---
DAUGHTER IN ROOM. BENADRYL AND PERCOCET PO. CALL LIGHT IN REACH.
--- NOTE | 2017-03-25 18:28 | NUR ---
NO CHANGES IN INITIAL ASSESSMENT. STILL REFUSES BED ALARM AND SCDs. CALL LIGHT IN REACH. WILL CONTINUE WITH PLAN OF CARE.
[2017-03-25 20:00] VITALS: BP 112/69
--- NOTE | 2017-03-25 20:00 | NUR ---
ASSESSMENT PER FLOW SHEET.PT WITHOUT DISTRESS.CALL LIGHT IN REACH.
[2017-03-26 04:00] VITALS: BP 111/64
--- NOTE | 2017-03-26 04:14 | NUR ---
RESTING INT THROUGHOUT NIGHT,REMAINS WITHOUT CHANGE.MONITOR
--- NOTE | 2017-03-26 06:22 | NUR ---
REMAINS WITHOUT NEEDS,WITHOUT DISTRESS.CONT PLAN OF CARE
--- NOTE | 2017-03-26 07:15 | NUR ---
REPORT RECEIVED FROM REGIONAL COORDINATOR NURSE. CALL LIGHT IN REACH.
[2017-03-26 08:04] VITALS: BP 95/63
--- NOTE | 2017-03-26 08:40 | NUR ---
ASSESSMENT COMPLETED. REFUSES SCDs AND BED ALARM ON. CALL LIGHT IN REACH.
--- NOTE | 2017-03-26 10:42 | NUR ---
REFUSED ALL AM MEDS EXCEPT ROBAXIN, PERCOCET, AND BENADRYL. HELD [facility] D/T LOW BP. STILL REFUSES SCDs. CALL LIGHT IN REACH. WILL CONTINUE WITH PLAN OF CARE.
[2017-03-26 12:00] VITALS: BP 95/48
--- NOTE | 2017-03-26 12:30 | NUR ---
RESTING WITH EYES CLOSED. RESP EVEN AND UNLABORED. CALL LIGHT IN REACH.
--- NOTE | 2017-03-26 13:55 | NUR ---
DENIES NEEDS AT THIS TIME. CALL LIGHT IN REACH.
--- NOTE | 2017-03-26 14:20 | NUR ---
REQUESTING PAIN MEDS AND BENADRYL. ADMINISTERED PER ORDER. CALL LIGHT IN REACH.
--- NOTE | 2017-03-26 15:18 | NUR ---
PATIENT IS AWAKE, ALERT AND ORIENTED X'S 4. RESPIRATIONS ARE EVEN AND UNLABORED. PATIENT DENIES NEEDS. 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 BED IN LOWEST POSITION, CALL LIGHT IN REACH. BED RAILS UP X'S 2. HOB 30 DEGREES.
[2017-03-26 16:00] VITALS: BP 124/56
--- NOTE | 2017-03-26 16:35 | NUR ---
PATIENT IS REQUESTING MORE PAIN MEDS BUT IT IS TOO SOON. WILL GIVE WITH ROBAXIN WHEN IT IS TIME.
--- NOTE | 2017-03-26 18:07 | NUR ---
NO CHANGES IN INITIAL ASSESSMENT. PERCOCET, ROBAXIN, AND BENADRYL PO. CALL LIGHT IN REACH. WILL CONTINUE WITH PLAN OF CARE.
[2017-03-26 20:00] VITALS: BP 109/58
--- NOTE | 2017-03-26 20:00 | NUR ---
ASSESSMENT PER FLOW SHEET.PT WITHOUT DISTRESS.CALL LIGHT IN REACH.
--- NOTE | 2017-03-27 00:12 | NUR ---
RESTING WITHOUT SIGNS OF DISTRESS.
--- NOTE | 2017-03-27 03:04 | NUR ---
ASSIST WITH BATHROOM AGAIN.PT AWAKE AND UP TONIGHT. PT STATES LEGS FEEL BETTER.HAS SOME EPISODE OF INCONTINENCE DURING NIGHT.NEEDS MET AT PRESENT.
[2017-03-27 04:00] VITALS: BP 103/44
--- NOTE | 2017-03-27 06:12 | NUR ---
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
--- NOTE | 2017-03-27 07:40 | NUR ---
PATIENT RECEIVED ALERT IN MID [place] POSITION. NO SIGNS OF DISTRESS NOTED. DENIES NEEDS. SIDE RAILS UP X2. BED IN LOW POSITION. CALL LIGHT IN REACH.
--- NOTE | 2017-03-27 08:50 | NUR ---
PATIENT ALERT IN BED. NO SIGNS OF DISTRESS NOTED. MEDICATION ADMINISTERED PER ORDERS. SIDE RAILS UP X2. BED IN LOW POSITION. CALL LIGHT IN REACH.
[2017-03-27 09:35] VITALS: BP 104/54
--- NOTE | 2017-03-27 10:20 | NUR ---
ALERT IN BED. RATES PAIN 3/10. SIDE RAILS UP X2. BED IN LOW POSITION. CALL LIGHT IN REACH.
--- NOTE | 2017-03-27 11:08 | NUR ---
CM REASSESSMENT NOTE: PATIENT IS BEING D/C TODAY BY FACILITY VAN TO A SKILLED BED ([facility]). IMM SIGNED
--- NOTE | 2017-03-27 11:40 | NUR ---
IV TO RIGHT FOREARM D/C WITH CATH TIP INTACT. SITE COVERED WITH GAUZE AND BANDAID. WELL TOLERATED.
--- NOTE | 2017-03-27 11:47 | NUR ---
REPORT CALLED TO THE [facility]. AZIZA RECEIVED REPORT.
[2017-03-27 11:49] VITALS: BP 95/50
--- NOTE | 2017-03-27 13:14 | NUR ---
PATIENT D/C TO THE [facility] WITH STAFF. TRANSFERRED DOWNSTAIRS VIA WHEELCHAIR
== END 2017-03-27 13:15 | DRG 190 ==
LOC: D.ER 10:41 → D.MS 13:53
PROVIDERS: Emergency Medicine; ADMIT Legal Medicine
DX: J44.0 Chronic obstructive pulmonary disease with (acute) lower respiratory infection (principal); J15.6 Pneumonia due to other Gram-negative bacteria; G93.40 Encephalopathy, unspecified; K52.1 Toxic gastroenteritis and colitis; J44.1 Chronic obstructive pulmonary disease with (acute) exacerbation; R30.0 Dysuria; T36.95XA Adverse effect of unspecified systemic antibiotic, initial encounter; K70.10 Alcoholic hepatitis without ascites